=== PATIENT | female | born 1980 | race Caucasian/White ===

== ENCOUNTER 2016-11-12 16:01 | Emergency (ER) | payer OTHER ==
[~2016-11-12 16:01] MED LIST: METHADONE HCL10 MG PO; ZYVOX600 M1 PO
--- NOTE | 2016-11-12 16:53 | ED ORDER SUMMARY ---
..... Patient: CAMILLE OSHEA OrderSheet [facility] VisitID: [id number] [address] [place] [address] 36y, F Registration Date/Time: 11/12/2016 ORDER SHEET Weight: 72.5 kg (stated) Allergies: Compazine, Sulfa Antibiotics GENERAL ORDERS: EKG - ER Stat (16:21 11/12/2016 Rbo Calero per protocol) (16:31 Rob Belle.Agata.) MEDICATION ORDERS: Benadryl PO 50 mg (NOW) (16:51 11/12/2016 Bob CAMPOS) (16:54 Rob Belle.Scott) IV FLUIDS: ORDER SHEET NOTES: [Electronically signed by Stephanie Sood R.N. (22:43 11/12/2016)] [Electronically signed by Osiris Grewal PA-C (00:39 11/13/2016)] [Electronically locked/signed by Stephanie Sood R.N. (22:43 11/12/2016)]
--- NOTE | 2016-11-12 16:53 | ED NURSING NOTES ---
Clinical Report - Nurses [facility] [address] [place] [address] 11/12/2016 16:02 Patient: CAMILLE OSHEA TRIAGE Triage time 16:05. Acuity: LEVEL 4. Chief Complaint: RIGHT UPPER EXTREMITY PAIN, SWELLING and REDNESS. Alert. No acute distress. ( Pt. 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 She said she thinks she is having a reaction because "right after I shot up it started burning and I didn't miss, this feels different than before."). SEPSIS SCREEN: Sepsis Screen. Negative (no infection suspected/documented). JAMIE COMA SCORE: Jamie Coma Scale: 15- eyes open spontaneously (4); best verbal response- oriented x 4 (5); best motor response- obeys commands (6). --16:11 Stephanie Sood R.N. 16:05 11/12/16. BP: 134/73. HR: 105. RR: 14. O2 saturation: 100%. Temp: 98.4 F. Pain level now: 7/10. Additional comments: Hand pain:7/10 and chest pain /10. --16:11 Stephanie Sood R.N. Weight: 72.5 kg stated. Height/Length: 64 inches Per Patient. BMI: 27.5. --16:09 Stephanie Sood R.N. Medications Aspirin Oral, as needed. --16:08 Stephanie Sood R.N. Albuterol Sulfate Inhalation. --16:08 Stephanie Sood R.N. Allergies Compazine. Sulfa Antibiotics. --16:08 Stephanie Sood R.N. History Arrived by private vehicle. Historian: patient. Unaccompanied. Primary physician (JORGE in [place] This occurred today (15 min. KNIFE CHANGER). Treatment KNIFE CHANGER: None. PAST MEDICAL HX: Immunizations: up-to-date. SOCIAL HX: Light tobacco smoker (cigarette)- less than 1/2 a pack per day. History of heavy IV drug use: heroin, methamphetamines. No alcohol use. No infectious disease exposure. ABUSE ASSESSMENT: Abuse assessment: The patient was asked "Do you feel safe in your home?" and "Has anyone hurt you or threatened to hurt you?". No report of abuse. SELF HARM ASSESSMENT: A self harm assessment was performed. The patient answered "no" to the question "Do you have thoughts of harming or killing yourself?" and "Have you recently had thoughts about harming or killing others?". NUTRITIONAL RISK ASSESSMENT: The nutritional risk assessment revealed no deficiencies. FUNCTIONAL ASSESSMENT: Functional assessment: no impairments noted. LEARNING NEEDS ASSESSMENT: The learning needs assessment revealed no barriers. --16:11 Stephanie Sood R.N. PROBLEMS: Bronchitis. Atypical Chest Pain. URI. Viral Disease. Anxiety Reaction. Cellulitis. Substance Abuse. Superficial Thrombophlebitis. Constipation. Hepatitis. Gastroenteritis. Lifestyle / Substance Problems. Diarrhea. Abdominal Pain. Fibromyalgia. Degenerative Joint Disease. Asthma. Abscess. Bipolar Disorder. Anxiety disorder. Liver enzymes abnormal. --16:08 Stephanie Sood R.N. ADDITIONAL SURGERIES: Cholecystectomy. Dilatation & Curettage. Fracture Repair. --16:08 Stephanie Sood R.N. Interventions ID band on patient. Ambulatory. --16:11 Stephanie Sood R.N. PHYSICAL ASSESSMENT Ambulatory to room. GENERAL / NEURO / PSYCH: Oriented X 4. Alert. Appears in no acute distress. EXTREMITIES: Neuro-vascular status intact to the extremity. Right hand: swelling and erythema. SKIN: Skin intact. Skin is warm and dry. --16:12 Stephanie Sood R.N. NURSING PROGRESS NOTES Patient gowned. Two patient identifiers checked. Call light placed in reach. Side rails up x 1. Bed placed in lowest position. Brakes of bed on. Patient ready for evaluation- chart flagged. --16:12 Stephanie Sood R.N. 16:13. media monitor, pulse oximeter and NIBP monitor placed on patient; media monitor- Lead II; monitor alarms on. --16:14 Stephanie Sood R.N. ( media monitor: sinus tach.). --16:20 Stephanie Sood R.N. EKG time: (16:31). EKG was ordered, performed by a nurse and shown to the ED physician. --16:31 Stephanie Sood R.N. 16:54 11/12/2016 Benadryl (DiphenhydrAMINE HCl) PO 50 mg given. Allergies verified, confirmed 5 rights and sedative warning given to the patient. --16:54 Stephanie Sood R.N. DISPOSITION / DISCHARGE 22:05 11/12/16. BP: 133/84. HR: 100. RR: 16. O2 saturation: 100%. Temp: 98.7 F. Pain level now 03/14. --22:41 Stephanie Sood R.N. Departure time: 1658. Condition at departure: stable. No learning barriers present. Discharge instructions provided and reviewed with the patient. Reviewed referral to family practice for followup. Patient verbalized understanding. Written instructions provided in Austrian. The patient was discharged home and accompanied by architecture internship. She left the Emergency Department ambulatory and via private vehicle. Paraprofessional Aide driving. ( all discharge done at 1658). Medication list reviewed and validated. --22:42 Stephanie Sood R.N. Locked/Released at 11/12/2016 22:43 by Stephanie Sood R.N.
--- NOTE | 2016-11-12 16:53 | ED ORDER SUMMARY ---
..... Patient: CAMILLE OSHEA OrderSheet [facility] VisitID: [id number] [address] [place] [address] 36y, F Registration Date/Time: 11/12/2016 ORDER SHEET Weight: 72.5 kg (stated) Allergies: Compazine, Sulfa Antibiotics GENERAL ORDERS: EKG - ER Stat (16:21 11/12/2016 Rob Calero per protocol) (16:31 Rob Belle.Agata.) MEDICATION ORDERS: Benadryl PO 50 mg (NOW) (16:51 11/12/2016 Bob CAMPOS) (16:54 Rob Belle.Scott) IV FLUIDS: ORDER SHEET NOTES: [Electronically signed by Stephanie Sood R.N. (22:43 11/12/2016)] [Electronically signed by Osiris Grewal PA-C (00:39 11/13/2016)] [Electronically locked/signed by Stephanie Sood R.N. (22:43 11/12/2016)]
--- NOTE | 2016-11-12 16:53 | ED CLINICAL REPORT ---
Clinical Report - Physicians/Mid Levels [facility] [address] [place] [address] 11/12/2016 16:02 Patient: CAMILLE OSHEA Time Seen: 16:39; initial patient contact. Arrived- By private vehicle. Historian- patient. ( Pt. 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 She said she thinks she is having a reaction because "right after I shot up it started burning and I didn't miss, this feels different than before.") pt has localized swelling and hive like reaction to the back of the right hand. HISTORY OF PRESENT ILLNESS Chief Complaint: ANXIOUS. Wants to stop drug use. Symptoms started today. Duration of substance abuse- 9 months. Substances abused: Heroin. Last drug use just prior to arrival. (15 minutes). No fever, chills, nausea, vomiting or diarrhea. The symptoms are described as moderate. No injuries noted. Similar symptoms previously: None. Recent medical care: Not recently seen/assessed. REVIEW OF SYSTEMS The patient has not had weight loss. No sweats, headache, dizziness, chest pain or palpitations. All systems otherwise negative, except as recorded above. PAST HISTORY See nurses notes. Longstanding history of drug abuse- heroin. Uses daily. Problems: Atypical Chest Pain. URI. Anxiety Reaction. Immunocompromised. Cellulitis. Superficial Thrombophlebitis. Constipation. Hepatitis. Gastroenteritis. Lifestyle / Substance Problems. Diarrhea. Abdominal Pain. Abd pain. Degenerative Joint Disease. Asthma. Bipolar Disorder. Liver enzymes abnormal. Medications: Albuterol Sulfate Inhalation. Aspirin Oral, as needed. Allergies: Compazine. Sulfa Antibiotics. SOCIAL HISTORY Smoker- current status unknown (cigarette). Alcohol use. History of drug use. FAMILY HISTORY Negative. ADDITIONAL NOTES The nursing notes have been reviewed with agreement regarding the chief complaint, HPI, ROS, PMH and patient medications and allergies. PHYSICAL EXAM Vital Signs: 11/12/2016 16:55 BP: 133/84. HR: 100. RR: 16. O2 saturation: 100%. Temp: 98.7 F. 11/12/2016 16:05 BP: 134/73. HR: 105. RR: 14. O2 saturation: 100%. Temp: 98.4 F. Pain level now: 05/14. Have been reviewed. Appearance: Alert. Oriented X3. No acute distress. Head: Head atraumatic. Neck: Normal inspection. Neck supple. CVS: Normal heart rate and rhythm. Heart sounds normal. Respiratory: No respiratory distress. Breath sounds normal. Skin: Skin warm and dry. Normal skin color. No rash. Extremities: Right hand: mild tenderness and swelling localized to the distal and dorsal aspect of the hand. Neurovascular intact distally. (urticarial like wheel to the dorsum of the right hand with well demarcated margins and no real warmth no rednss at this time. appears urticarial with other scars present from prior daily heroin use). Neuro: Oriented X 3. Mood/affect normal. Speech normal. CLINICAL IMPRESSION Acute urticaria secondary to allergy (urticarial wheel to the dorsum of the hand.). Chronic substance abuse- heroin with anxiety. INSTRUCTIONS Stay with responsible adult family member (or other responsible adult). (seek care at the suboxone clinic in the am). OTC Medications: Benadryl Allergy 25 mg (available over the counter): take 1-2 orally every 8 hours as needed for itching Understanding of the discharge instructions verbalized by patient. (Electronically signed by Osiris Grewal PA-C 11/13/2016 0:39)
--- NOTE | 2016-11-12 16:53 | ED NURSING NOTES ---
Clinical Report - Nurses [facility] [address] [place] [address] 11/12/2016 16:02 Patient: CAMILLE OSHEA TRIAGE Triage time 16:05. Acuity: LEVEL 4. Chief Complaint: RIGHT UPPER EXTREMITY PAIN, SWELLING and REDNESS. Alert. No acute distress. ( Pt. 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 She said she thinks she is having a reaction because "right after I shot up it started burning and I didn't miss, this feels different than before."). SEPSIS SCREEN: Sepsis Screen. Negative (no infection suspected/documented). JAMIE COMA SCORE: Jamie Coma Scale: 15- eyes open spontaneously (4); best verbal response- oriented x 4 (5); best motor response- obeys commands (6). --16:11 Stephanie Sood R.N. 16:05 11/12/16. BP: 134/73. HR: 105. RR: 14. O2 saturation: 100%. Temp: 98.4 F. Pain level now: 7/10. Additional comments: Hand pain:7/10 and chest pain /10. --16:11 Stephanie Sood R.N. Weight: 72.5 kg stated. Height/Length: 64 inches Per Patient. BMI: 27.5. --16:09 Stephanie Sood R.N. Medications Aspirin Oral, as needed. --16:08 Stephanie Sood R.N. Albuterol Sulfate Inhalation. --16:08 Stephanie Sood R.N. Allergies Compazine. Sulfa Antibiotics. --16:08 Stephanie Sood R.N. History Arrived by private vehicle. Historian: patient. Unaccompanied. Primary physician (JORGE in [place] This occurred today (15 min. SAWYER CORK SLABS). Treatment SAWYER CORK SLABS: None. PAST MEDICAL HX: Immunizations: up-to-date. SOCIAL HX: Light tobacco smoker (cigarette)- less than 1/2 a pack per day. History of heavy IV drug use: heroin, methamphetamines. No alcohol use. No infectious disease exposure. ABUSE ASSESSMENT: Abuse assessment: The patient was asked "Do you feel safe in your home?" and "Has anyone hurt you or threatened to hurt you?". No report of abuse. SELF HARM ASSESSMENT: A self harm assessment was performed. The patient answered "no" to the question "Do you have thoughts of harming or killing yourself?" and "Have you recently had thoughts about harming or killing others?". NUTRITIONAL RISK ASSESSMENT: The nutritional risk assessment revealed no deficiencies. FUNCTIONAL ASSESSMENT: Functional assessment: no impairments noted. LEARNING NEEDS ASSESSMENT: The learning needs assessment revealed no barriers. --16:11 Stephanie Sood R.N. PROBLEMS: Bronchitis. Atypical Chest Pain. URI. Viral Disease. Anxiety Reaction. Cellulitis. Substance Abuse. Superficial Thrombophlebitis. Constipation. Hepatitis. Gastroenteritis. Lifestyle / Substance Problems. Diarrhea. Abdominal Pain. Fibromyalgia. Degenerative Joint Disease. Asthma. Abscess. Bipolar Disorder. Anxiety disorder. Liver enzymes abnormal. --16:08 Stephanie Sood R.N. ADDITIONAL SURGERIES: Cholecystectomy. Dilatation & Curettage. Fracture Repair. --16:08 Stephanie Sood R.N. Interventions ID band on patient. Ambulatory. --16:11 Stephanie Sood R.N. PHYSICAL ASSESSMENT Ambulatory to room. GENERAL / NEURO / PSYCH: Oriented X 4. Alert. Appears in no acute distress. EXTREMITIES: Neuro-vascular status intact to the extremity. Right hand: swelling and erythema. SKIN: Skin intact. Skin is warm and dry. --16:12 Stephanie Sood R.N. NURSING PROGRESS NOTES Patient gowned. Two patient identifiers checked. Call light placed in reach. Side rails up x 1. Bed placed in lowest position. Brakes of bed on. Patient ready for evaluation- chart flagged. --16:12 Stephanie Sood R.N. 16:13. electrical discharge machine operator, pulse oximeter and NIBP monitor placed on patient; sde- Lead II; monitor alarms on. --16:14 Stephanie Sodo R.N. ( sde: sinus tach.). --16:20 Stephanie Sood R.N. EKG time: (16:31). EKG was ordered, performed by a nurse and shown to the ED physician. --16:31 Stephanie Sood R.N. 16:54 11/12/2016 Benadryl (DiphenhydrAMINE HCl) PO 50 mg given. Allergies verified, confirmed 5 rights and sedative warning given to the patient. --16:54 Stephanie Sood R.N. DISPOSITION / DISCHARGE 22:05 11/12/16. BP: 133/84. HR: 100. RR: 16. O2 saturation: 100%. Temp: 98.7 F. Pain level now 03/14. --22:41 Stephanie Sood R.N. Departure time: 1658. Condition at departure: stable. No learning barriers present. Discharge instructions provided and reviewed with the patient. Reviewed referral to family practice for followup. Patient verbalized understanding. Written instructions provided in Cymro. The patient was discharged home and accompanied by case manager specialist. She left the Emergency Department ambulatory and via private vehicle. Plate Worker driving. ( all discharge done at 1658). Medication list reviewed and validated. --22:42 Stephanie Sood R.N. Locked/Released at 11/12/2016 22:43 by Stephanie Sood R.N.
--- NOTE | 2016-11-12 16:53 | ED CLINICAL REPORT ---
Clinical Report - Physicians/Mid Levels [facility] [address] [place] [address] 11/12/2016 16:02 Patient: CAMILLE OSHEA Time Seen: 16:39; initial patient contact. Arrived- By private vehicle. Historian- patient. ( Pt. 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 She said she thinks she is having a reaction because "right after I shot up it started burning and I didn't miss, this feels different than before.") pt has localized swelling and hive like reaction to the back of the right hand. HISTORY OF PRESENT ILLNESS Chief Complaint: ANXIOUS. Wants to stop drug use. Symptoms started today. Duration of substance abuse- 9 months. Substances abused: Heroin. Last drug use just prior to arrival. (15 minutes). No fever, chills, nausea, vomiting or diarrhea. The symptoms are described as moderate. No injuries noted. Similar symptoms previously: None. Recent medical care: Not recently seen/assessed. REVIEW OF SYSTEMS The patient has not had weight loss. No sweats, headache, dizziness, chest pain or palpitations. All systems otherwise negative, except as recorded above. PAST HISTORY See nurses notes. Longstanding history of drug abuse- heroin. Uses daily. Problems: Atypical Chest Pain. URI. Anxiety Reaction. Immunocompromised. Cellulitis. Superficial Thrombophlebitis. Constipation. Hepatitis. Gastroenteritis. Lifestyle / Substance Problems. Diarrhea. Abdominal Pain. Abd pain. Degenerative Joint Disease. Asthma. Bipolar Disorder. Liver enzymes abnormal. Medications: Albuterol Sulfate Inhalation. Aspirin Oral, as needed. Allergies: Compazine. Sulfa Antibiotics. SOCIAL HISTORY Smoker- current status unknown (cigarette). Alcohol use. History of drug use. FAMILY HISTORY Negative. ADDITIONAL NOTES The nursing notes have been reviewed with agreement regarding the chief complaint, HPI, ROS, PMH and patient medications and allergies. PHYSICAL EXAM Vital Signs: 11/12/2016 16:55 BP: 133/84. HR: 100. RR: 16. O2 saturation: 100%. Temp: 98.7 F. 11/12/2016 16:05 BP: 134/73. HR: 105. RR: 14. O2 saturation: 100%. Temp: 98.4 F. Pain level now: 05/14. Have been reviewed. Appearance: Alert. Oriented X3. No acute distress. Head: Head atraumatic. Neck: Normal inspection. Neck supple. CVS: Normal heart rate and rhythm. Heart sounds normal. Respiratory: No respiratory distress. Breath sounds normal. Skin: Skin warm and dry. Normal skin color. No rash. Extremities: Right hand: mild tenderness and swelling localized to the distal and dorsal aspect of the hand. Neurovascular intact distally. (urticarial like wheel to the dorsum of the right hand with well demarcated margins and no real warmth no rednss at this time. appears urticarial with other scars present from prior daily heroin use). Neuro: Oriented X 3. Mood/affect normal. Speech normal. CLINICAL IMPRESSION Acute urticaria secondary to allergy (urticarial wheel to the dorsum of the hand.). Chronic substance abuse- heroin with anxiety. INSTRUCTIONS Stay with responsible adult family member (or other responsible adult). (seek care at the suboxone clinic in the am). OTC Medications: Benadryl Allergy 25 mg (available over the counter): take 1-2 orally every 8 hours as needed for itching Understanding of the discharge instructions verbalized by patient. (Electronically signed by Osiris Grewal PA-C 11/13/2016 0:39)
--- NOTE | 2016-11-13 00:40 | ED MAR SUMMARY ---
..... Medication Administration Record [facility] [address] [place] [address] Patient: CAMILLE OSHEA Visit ID: [id number] 36y, F Weight: 72.5 kg Height/Length: 64 in BMI: 27.5 ALLERGIES: Compazine, Sulfa Antibiotics Given 16:54 11/12/2016 Stephanie Sood RAntony Medication Administered: BENADRYL [PO] (DIPHENHYDRAMINE HCL), Dose: 50 mg PO. Medication Ordered: Benadryl PO 50 mg (NOW).
--- NOTE | 2016-11-13 00:40 | ED MAR SUMMARY ---
..... Medication Administration Record [facility] [address] [place] [address] Patient: CAMILLE OSHEA Visit ID: [id number] 36y, F Weight: 72.5 kg Height/Length: 64 in BMI: 27.5 ALLERGIES: Compazine, Sulfa Antibiotics Given 16:54 11/12/2016 Stephanie Sood RAntony Medication Administered: BENADRYL [PO] (DIPHENHYDRAMINE HCL), Dose: 50 mg PO. Medication Ordered: Benadryl PO 50 mg (NOW).
--- NOTE | 2016-11-13 00:40 | ED DISCHARGE INSTRUCTIONS ---
Patient: CAMILLE OSHEA General Instructions [facility] VisitID: [id number] [address] [place] [address] 36y, F Registration Date/Time: 11/12/2016 Acute urticaria secondary to allergy (urticarial wheel to the dorsum of the hand.). Chronic substance abuse- heroin with anxiety. INSTRUCTIONS Stay with responsible adult family member (or other responsible adult). (seek care at the suboxone clinic in the am). OTC Medications: Benadryl Allergy 25 mg (available over the counter): take 1-2 orally every 8 hours as needed for itching Understanding of the discharge instructions verbalized by patient. Stay with responsible adult family member (or other responsible adult). (Electronically signed by Osiris Grewal PA-C 11/13/2016 0:39)
--- NOTE | 2016-11-13 00:40 | ED MED RECONCILIATION SUMMARY ---
Patient: CAMILLE OSHEA Medication Reconciliation Report [facility] VisitID: [id number] [address] [place] [address] 36y, F Registration Date/Time: 11/12/2016 Weight: 72.5 kg Height/Length: 64 in. BMI: 27.5 ALLERGIES: Compazine, Sulfa Antibiotics The patient's Home Medications are listed below: THE FOLLOWING MEDICATIONS NEED TO BE RECONCILED: Albuterol Sulfate Inhalation Aspirin Oral The source(s) of the original Home Medication information: Not obtained. The following Medications were given to the patient in the Emergency Department: Benadryl [PO] PO 50 mg, administered: 11/12/2016 4:54:00 PM The following Medications were prescribed to the patient: Benadryl Allergy 25 mg (available over the counter): take 1-2 orally every 8 hours as needed for itching -- Osiris Grewal PA-C
--- NOTE | 2016-11-13 00:40 | ED DISCHARGE INSTRUCTIONS ---
Patient: CAMILLE OSHEA General Instructions [facility] VisitID: [id number] [address] [place] [address] 36y, F Registration Date/Time: 11/12/2016 Acute urticaria secondary to allergy (urticarial wheel to the dorsum of the hand.). Chronic substance abuse- heroin with anxiety. INSTRUCTIONS Stay with responsible adult family member (or other responsible adult). (seek care at the suboxone clinic in the am). OTC Medications: Benadryl Allergy 25 mg (available over the counter): take 1-2 orally every 8 hours as needed for itching Understanding of the discharge instructions verbalized by patient. Stay with responsible adult family member (or other responsible adult). (Electronically signed by Osiris Grewal PA-C 11/13/2016 0:39)
--- NOTE | 2016-11-13 00:40 | ED MED RECONCILIATION SUMMARY ---
Patient: CAMILLE OSHEA Medication Reconciliation Report [facility] VisitID: [id number] [address] [place] [address] 36y, F Registration Date/Time: 11/12/2016 Weight: 72.5 kg Height/Length: 64 in. BMI: 27.5 ALLERGIES: Compazine, Sulfa Antibiotics The patient's Home Medications are listed below: THE FOLLOWING MEDICATIONS NEED TO BE RECONCILED: Albuterol Sulfate Inhalation Aspirin Oral The source(s) of the original Home Medication information: Not obtained. The following Medications were given to the patient in the Emergency Department: Benadryl [PO] PO 50 mg, administered: 11/12/2016 4:54:00 PM The following Medications were prescribed to the patient: Benadryl Allergy 25 mg (available over the counter): take 1-2 orally every 8 hours as needed for itching -- Osiris Grewal PA-C
== END 2016-11-12 16:58 | disposition home or self-care (01) ==
LOC: ED SRH 16:01
DX: L50.0 Allergic urticaria (principal); F11.188 Opioid abuse with other opioid-induced disorder; F41.9 Anxiety disorder, unspecified; F17.200 Nicotine dependence, unspecified, uncomplicated; Z79.82 Long term (current) use of aspirin; Z79.51 Long term (current) use of inhaled steroids

== ENCOUNTER 2016-11-15 10:17 | Emergency (ER) | payer OTHER ==
--- NOTE | 2016-11-15 14:23 | ED CLINICAL REPORT ---
Clinical Report - Physicians/Mid Levels [facility] [address] [place] [address] 11/15/2016 10:16 Patient: CAMILLE OSHEA Time Seen: 10:53; initial patient contact. Arrived- By private vehicle. Historian- patient. HISTORY OF PRESENT ILLNESS Chief Complaint: "GOT THE SHAKES". Wants to stop drug use. Symptoms started today. Substances abused: Amphetamines and heroin. Last drug use consisted of amphetamines and heroin 1 day ago. No fever, chills, abdominal pain, hallucinations or suicidal thoughts. She has had nausea, vomiting, diarrhea and tremors. Has not been depressed. The symptoms are described as moderate. No injuries noted. Similar symptoms previously: Several times. Recent medical care: Not recently seen/assessed. REVIEW OF SYSTEMS No headache or dizziness. All systems otherwise negative, except as recorded above. PAST HISTORY Anxiety Reaction. Immunocompromised. Substance Abuse. Hepatitis. Gastroenteritis. Lifestyle / Substance Problems. Pelvic Inflammatory Disease. Bipolar Disorder. Anxiety disorder. Liver enzymes abnormal. SURGERIES: Cholecystectomy. Dilatation & Curettage. Fracture Repair. SOCIAL HISTORY Current every day smoker. History of drug use: heroin, methamphetamines. Recently used drugs yesterday. No alcohol use. No place to stay. ADDITIONAL NOTES The nursing notes have been reviewed with agreement regarding the chief complaint, PMH and patient medications and allergies. PHYSICAL EXAM Vital Signs: 11/15/2016 10:44 BP: 125/83. HR: 97. RR: 16. O2 saturation: 100%. Temp: 97.8 F. Pain level now: 08/14. Have been reviewed as normal. Appearance: Alert. Oriented X3. Anxious. Patient in mild distress. Head: Head atraumatic. ENT: Dry mucous membranes present. CVS: Normal heart rate and rhythm. Heart sounds normal. Respiratory: No respiratory distress. Breath sounds normal. Abdomen: Soft and nontender. No organomegaly. Skin: Skin warm and dry. Normal skin color. No rash. Extremities: No lower extremity edema. Neuro: Alert. Oriented X 3. Mood/affect normal. Speech normal. LABS, X-RAYS, AND EKG Laboratory Tests: UA-Culture if indicated: (GINA: 11/15/2016 10:50) ( MsgRcvd 11/15/2016 11:28) Final results Test Result Flag Units (Reference) URINE COLOR YELLOW URINE APPEARANCE SL CLOUDY URINE GLUCOSE NEGATIVE (NEGATIVE) URINE BILIRUBIN NEGATIVE (NEGATIVE) URINE KETONE NEGATIVE (NEGATIVE) URINE SPECIFIC GRAVITY 1.015 (1.010-1.030) URINE PH 6.5 (5.0-8.0) URINE PROTEIN NEGATIVE (NEGATIVE) URINE UROBILINOGEN 0.2 EU/dL (0.2-1.0) URINE NITRITE NEGATIVE (NEGATIVE) URINE BLOOD TRACE-LYSED (NEGATIVE) URINE LEUK ESTERASE TRACE (NEGATIVE) URINE RBC 0-1 rbc/hpf (0-1) URINE WBC 3-5 wbc/hpf (0-1) URINE EPITHELIAL CELLS 3-5 EPI/hpf (0-5) URINE BACTERIA FEW (1+) (NONE SEEN) URINE COMMENT CULTURE INDICATED URINE CULTURES ARE SET-UP BASED ON THE FOLLOWING CRITERIA:POSITIVE NITRITEPOSITIVE LEUKOCYTE ESTERASEGREATER THAN 10 WHITE BLOOD CELLSMODERATE (2+) OR GREATER BACTERIA Urine Drug Screen: (GINA: 11/15/2016 10:50) ( MsgRcvd 11/15/2016 11:37) Final results Test Result Flag Units (Reference) AMPHETAMINE/METHAMPHETAMINE POSITIVE H (NEGATIVE) BARBITURATE NEGATIVE (NEGATIVE) BENZODIAZEPINE NEGATIVE (NEGATIVE) CANNABINOID POSITIVE H (NEGATIVE) COCAINE NEGATIVE (NEGATIVE) ECSTASY NEGATIVE (NEGATIVE) METHADONE NEGATIVE (NEGATIVE) OPIATE POSITIVE H (NEGATIVE) The urine drug screen is a qualitative screening test fordrug overdose and abuse. All screen results should beconsidered as presumptive.Drugs screened for are as follows:BenzodiazepinesCocaineAmphetamines/MetamphetaminesTHC (Tetrahydrocannabinol)OpiatesBarbituratesEcstasyMethadonePositive results are unconfirmed. For confirmation, notifythe lab for the specimen to be sent to the reference lab.All confirmations must be performed by a differentmethodology.The ingestion of natural herbal and plant productscontaining Ephedra/Ephedra metabolites can produce in urineone or more substances capable of cross reacting withamphetamine/methamphetamine immunoassays. These testsprovide a preliminary result only. A more specificalternative chemical method must be used to obtain aconfirmed analytical result. . PROGRESS AND PROCEDURES Disposition: Discharged home in good and improved condition. Condition: good. CLINICAL IMPRESSION 11/15/2016 13:03 BP: 141/97. HR: 110. RR: 16. O2 saturation: 100%. Temp: 98.6 F. Pain level now: 08/14. Vital Signs: have been reviewed. Hypertensive. Tachycardic. Respiratory rate normal. Oxygen saturation normal. Narcotic withdrawal INSTRUCTIONS Your Current Medications: CONTINUE TAKING THE FOLLOWING MEDICATIONS: Albuterol Sulfate Inhalation. Aspirin Oral : prn. Prescription Medications: Clonidine 0.1 mg: take 1 orally every 12 hours. Dispense thirty (30). No refills. Vistaril 50 mg: take 1 orally every 6 hours as needed for anxiety. Dispense twenty (20). No refill. Substitution is permissible. Promethazine Tablets 25 mg: take 1 tablet orally every 6 hours as needed for nausea and vomiting. Dispense fifteen (15). No refill. Follow-up: Follow up with your doctor tomorrow as scheduled. Screening today revealed the patient's blood pressure to be in the hypertensive range. The patient should follow up with a primary care provider for blood pressure management. (Electronically signed by Evaristo Rob Dr. 11/15/2016 22:38)
--- NOTE | 2016-11-15 14:23 | ED NURSING NOTES ---
Clinical Report - Nurses [facility] [place] [address] [place] [address] 11/15/2016 10:16 Patient: CAMILLE OSHEA TRIAGE Triage time 1044 AM. Chief Complaint: (withdrawals). Alert. No acute distress. ABRAM COMA SCORE: [place] Coma Scale: 15- eyes open spontaneously (4); best verbal response- oriented x 4 (5); best motor response- obeys commands (6). --10:48 Anastacio Seth R.N. 10:44 11/15/16. BP: 125/83. HR: 97. RR: 16. O2 saturation: 100%. Temp: 97.8 F (oral). Pain level now: 08/14. --10:48 Anastacio Seth R.N. Weight: 72.5 kg stated. Height/Length: 64 inches Per Patient. BMI: 27.5. --10:47 Anastacio Seth R.N. Medications Albuterol Sulfate Inhalation. Aspirin Oral, as needed. --10:46 Anastacio Seth R.N. Allergies Compazine. Sulfa Antibiotics. --10:46 Anastacio Seth R.N. History Historian: patient. Arrived walking and accompanied by spouse. This started Patient states that she last used heroin on Sunday. ( Patient presents to the ED with symptoms of withdrawal from Heroin. Patient states that she believes she last used heroin on Sunday. Patient states that she has been using IV heroin for approximately 1 year. Patient reports chills, cramping, nausea, and vomiting.). 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 PAST MEDICAL HX: Last normal menstrual period unknown. SOCIAL HX: Light tobacco smoker (cigarette)- less than 1/2 a pack per day. Alcohol use. (no). History of drug use: heroin, methamphetamines. FALL RISK ASSESSMENT: Fall risk assessment completed. No fall risk identified. NUTRITIONAL RISK ASSESSMENT: The nutritional risk assessment revealed no deficiencies. FUNCTIONAL ASSESSMENT: Functional assessment: no impairments noted. LEARNING NEEDS ASSESSMENT: The learning needs assessment revealed no barriers. SKIN INTEGRITY ASSESSMENT: Skin integrity risk assessment completed. No skin integrity risk identified. --10:48 Anastacio Seth R.N. The patient has had a headache. --10:48 Anastacio Seth R.N. PROBLEMS: Anxiety Reaction. Immunocompromised. Substance Abuse. Hepatitis. Gastroenteritis. Lifestyle / Substance Problems. Pelvic Inflammatory Disease. Bipolar Disorder. Anxiety disorder. Liver enzymes abnormal. --10:47 Anastacio Seth R.N. ADDITIONAL SURGERIES: Cholecystectomy. Dilatation & Curettage. Fracture Repair. --10:47 Anastacio Seth R.N. PHYSICAL ASSESSMENT Ambulatory to room. GENERAL / NEURO / PSYCH: Alert. Oriented X 4. Appears in no acute distress. Speech within normal limits. Patient appears well-nourished and neat and clean. HEENT: Pupils equal, round and reactive to light. RESPIRATORY: Respirations not labored. Breath sounds within normal limits. CVS: Normal sinus rhythm noted. Capillary refill less than 2 seconds. GI / : Abdominal tenderness diffusely ("cramping"). SKIN: Skin is warm and dry. Normal skin turgor. --10:49 Anastacio Seth R.N. NURSING PROGRESS NOTES 11:50 11/15/2016 Clonidine PO Tablets 0.1 mg given. Allergies verified and confirmed 5 rights. --11:50 Anastacio Seth R.N. 11:50 11/15/2016 Site #1 started via IV in the right foot with an 22g angiocath; four attempts. Blood drawn: rainbow set. Labeled in the presence of the patient and sent to the lab. Saline lock flushed with 10 mL saline. --11:50 Anastacio Seth R.N. 11:51 11/15/2016 Started IV Fluids IV NS (Saline); bolus of 1000 mL wide open via site #1. Allergies verified and confirmed 5 rights. IV patency established. IV site checked: no pain, redness, or swelling. IV flushed thoroughly pre- and post-medication administration. --11:51 Anastacio Seth R.N. 11:51 11/15/2016 Started 25 mg of PROMETHAZINE IVPB in bag #1 1000 mL; at 1000 mL/hr over 1 hour(s) via site #1; Allergies verified, confirmed 5 rights and sedative warning given. --11:51 Anastacio Seth R.N. 13:03 11/15/16. BP: 141/97. HR: 110. RR: 16. O2 saturation: 100%. Temp: 98.6 F (oral). Pain level now: 08/14. --13:06 Anastacio Seth R.N. Overall patient status is worse- she states feels worse. --13:06 Anastacio Seth R.N. 13:19 11/15/2016 Vistaril (HydrOXYzine HCl) IM 50 mg given. Given in the right deltoid. Allergies verified, confirmed 5 rights and sedative warning given to the patient. --13:19 Anastacio Seth R.N. ( pt. friend given information for cold weather shelters in the area.). --14:40 Geovanna Newsome, JAMIL Tech1 15:26 11/15/2016 IV Fluids IV NS Discontinued: bag #1 completed upon discharge. Total amount infused: 1000 mL. IV patency established. IV site checked: no pain, redness, or swelling. IV flushed thoroughly. --15:26 Anastacio Seth R.N. DISPOSITION / DISCHARGE Departure time: 1526 PM. Condition at departure: improved. The goals identified in the patient's plan of care were met. No learning barriers present. Discharge instructions provided and reviewed with the patient. Reviewed medication(s) side effects, precautions, dosing and course information. Reviewed referrals ([facility]). Patient verbalized understanding. Written instructions provided in Tajik. The patient was discharged home and accompanied by family. She left the Emergency Department ambulatory and via private vehicle. Parent driving. ( Patient's father, Paramjit, states that he will waste picker patient at 9pm tonight. Patient discharged to the lobby with clear instructions to follow up at [facility] tomorrow at 3:30PM. Patient verbalized understanding and states that she will wait in the lobby until her father comes to pick her up.). --15:26 Anastacio Seth R.N. 15:17 11/15/16. BP: 137/96. HR: 94. RR: 16. O2 saturation: 100%. Temp: 98.2 F (oral). Pain level now: 08/14. --15:26 Anastacio Seth R.N. Locked/Released at 11/15/2016 15:27 by Anastacio Seth R.N.
--- NOTE | 2016-11-15 14:23 | ED ORDER SUMMARY ---
..... Patient: CAMILLE OSHEA OrderSheet [facility] VisitID: [id number] [address] [place] [address] 36y, F Registration Date/Time: 11/15/2016 ORDER SHEET Weight: 72.5 kg (stated) Allergies: Compazine, Sulfa Antibiotics GENERAL ORDERS: UA-Culture if indicated Urgent (10:49 11/15/2016 Shabana R.N. per protocol) (10:50 HOShasouth R.N.) Urine Drug Screen Urgent (10:49 11/15/2016 HOSjuanpablo R.N. per protocol) (10:50 Shabana R.N.) MEDICATION ORDERS: Promethazine IV 25 mg (HIGH ALERT MEDICATION, NOW) (11:13 11/15/2016 Mary Thomas) (11:51 Shabana R.N.) Previously tolerated Promethazine Clonidine PO 0.1 mg (NOW) (11:14 11/15/2016 Mary Thomas) (11:50 HOSjuanpablo R.N.) Previously tolerated Promethazine Vistaril IM 50 mg (NOW, Do not administer intravenously) (13:14 11/15/2016 Mary Thomas) (13:19 Shabana R.N.) IV FLUIDS: IV NS : initial bolus none -, then 1000 mL/hr for X1 (NOW) (11:13 11/15/2016 Mary Thomas) (11:51 Shabana R.N.) Previously tolerated Promethazine ORDER SHEET NOTES: [Electronically signed by Anastacio Seth R.N. (15:27 11/15/2016)] [Electronically signed by Evaristo Rob Dr. (22:38 11/15/2016)] [Electronically locked/signed by Anastacio Seth R.N. (15:27 11/15/2016)]
--- NOTE | 2016-11-15 14:23 | ED ORDER SUMMARY ---
..... Patient: CAMILLE OSHEA OrderSheet [facility] VisitID: [id number] [address] [place] [address] 36y, F Registration Date/Time: 11/15/2016 ORDER SHEET Weight: 72.5 kg (stated) Allergies: Compazine, Sulfa Antibiotics GENERAL ORDERS: UA-Culture if indicated Urgent (10:49 11/15/2016 Shabana R.N. per protocol) (10:50 HOShasouth R.N.) Urine Drug Screen Urgent (10:49 11/15/2016 HOSjuanpablo R.N. per protocol) (10:50 Shabana R.N.) MEDICATION ORDERS: Promethazine IV 25 mg (HIGH ALERT MEDICATION, NOW) (11:13 11/15/2016 Mary Thomas) (11:51 Shabana R.N.) Previously tolerated Promethazine Clonidine PO 0.1 mg (NOW) (11:14 11/15/2016 Mary Thomas) (11:50 HOSjuanpablo R.N.) Previously tolerated Promethazine Vistaril IM 50 mg (NOW, Do not administer intravenously) (13:14 11/15/2016 Mary Thomas) (13:19 Shabana R.N.) IV FLUIDS: IV NS : initial bolus none -, then 1000 mL/hr for X1 (NOW) (11:13 11/15/2016 Mary Thomas) (11:51 Shabana R.N.) Previously tolerated Promethazine ORDER SHEET NOTES: [Electronically signed by Anastacio Seth R.N. (15:27 11/15/2016)] [Electronically signed by Evaristo Rob Dr. (22:38 11/15/2016)] [Electronically locked/signed by Anastacio Seth R.N. (15:27 11/15/2016)]
--- NOTE | 2016-11-15 14:23 | ED NURSING NOTES ---
Clinical Report - Nurses [facility] [place] [address] [place] [address] 11/15/2016 10:16 Patient: CAMILLE OSHEA TRIAGE Triage time 1044 AM. Chief Complaint: (withdrawals). Alert. No acute distress. ABRAM COMA SCORE: [place] Coma Scale: 15- eyes open spontaneously (4); best verbal response- oriented x 4 (5); best motor response- obeys commands (6). --10:48 Anastacio Seth R.N. 10:44 11/15/16. BP: 125/83. HR: 97. RR: 16. O2 saturation: 100%. Temp: 97.8 F (oral). Pain level now: 08/14. --10:48 Anastacio Seth R.N. Weight: 72.5 kg stated. Height/Length: 64 inches Per Patient. BMI: 27.5. --10:47 Anastacio Seth R.N. Medications Albuterol Sulfate Inhalation. Aspirin Oral, as needed. --10:46 Anastacio Seth R.N. Allergies Compazine. Sulfa Antibiotics. --10:46 Anastacio Seth R.N. History Historian: patient. Arrived walking and accompanied by spouse. This started Patient states that she last used heroin on Sunday. ( Patient presents to the ED with symptoms of withdrawal from Heroin. Patient states that she believes she last used heroin on Sunday. Patient states that she has been using IV heroin for approximately 1 year. Patient reports chills, cramping, nausea, and vomiting.). 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 PAST MEDICAL HX: Last normal menstrual period unknown. SOCIAL HX: Light tobacco smoker (cigarette)- less than 1/2 a pack per day. Alcohol use. (no). History of drug use: heroin, methamphetamines. FALL RISK ASSESSMENT: Fall risk assessment completed. No fall risk identified. NUTRITIONAL RISK ASSESSMENT: The nutritional risk assessment revealed no deficiencies. FUNCTIONAL ASSESSMENT: Functional assessment: no impairments noted. LEARNING NEEDS ASSESSMENT: The learning needs assessment revealed no barriers. SKIN INTEGRITY ASSESSMENT: Skin integrity risk assessment completed. No skin integrity risk identified. --10:48 Anastacio Seth R.N. The patient has had a headache. --10:48 Anastacio Seth R.N. PROBLEMS: Anxiety Reaction. Immunocompromised. Substance Abuse. Hepatitis. Gastroenteritis. Lifestyle / Substance Problems. Pelvic Inflammatory Disease. Bipolar Disorder. Anxiety disorder. Liver enzymes abnormal. --10:47 Anastacio Seth R.N. ADDITIONAL SURGERIES: Cholecystectomy. Dilatation & Curettage. Fracture Repair. --10:47 Anastacio Seth R.N. PHYSICAL ASSESSMENT Ambulatory to room. GENERAL / NEURO / PSYCH: Alert. Oriented X 4. Appears in no acute distress. Speech within normal limits. Patient appears well-nourished and neat and clean. HEENT: Pupils equal, round and reactive to light. RESPIRATORY: Respirations not labored. Breath sounds within normal limits. CVS: Normal sinus rhythm noted. Capillary refill less than 2 seconds. GI / : Abdominal tenderness diffusely ("cramping"). SKIN: Skin is warm and dry. Normal skin turgor. --10:49 Anastacio Seth R.N. NURSING PROGRESS NOTES 11:50 11/15/2016 Clonidine PO Tablets 0.1 mg given. Allergies verified and confirmed 5 rights. --11:50 Anastacio Seth R.N. 11:50 11/15/2016 Site #1 started via IV in the right foot with an 22g angiocath; four attempts. Blood drawn: rainbow set. Labeled in the presence of the patient and sent to the lab. Saline lock flushed with 10 mL saline. --11:50 Anastacio Seth R.N. 11:51 11/15/2016 Started IV Fluids IV NS (Saline); bolus of 1000 mL wide open via site #1. Allergies verified and confirmed 5 rights. IV patency established. IV site checked: no pain, redness, or swelling. IV flushed thoroughly pre- and post-medication administration. --11:51 Anastacio Seth R.N. 11:51 11/15/2016 Started 25 mg of PROMETHAZINE IVPB in bag #1 1000 mL; at 1000 mL/hr over 1 hour(s) via site #1; Allergies verified, confirmed 5 rights and sedative warning given. --11:51 Anastacio Seth R.N. 13:03 11/15/16. BP: 141/97. HR: 110. RR: 16. O2 saturation: 100%. Temp: 98.6 F (oral). Pain level now: 08/14. --13:06 Anastacio Seth R.N. Overall patient status is worse- she states feels worse. --13:06 Anastacio Seth R.N. 13:19 11/15/2016 Vistaril (HydrOXYzine HCl) IM 50 mg given. Given in the right deltoid. Allergies verified, confirmed 5 rights and sedative warning given to the patient. --13:19 Anastacio Seth R.N. ( pt. friend given information for cold weather shelters in the area.). --14:40 Geovanna Newsome, JAMIL Tech1 15:26 11/15/2016 IV Fluids IV NS Discontinued: bag #1 completed upon discharge. Total amount infused: 1000 mL. IV patency established. IV site checked: no pain, redness, or swelling. IV flushed thoroughly. --15:26 Anastacio Seth R.N. DISPOSITION / DISCHARGE Departure time: 1526 PM. Condition at departure: improved. The goals identified in the patient's plan of care were met. No learning barriers present. Discharge instructions provided and reviewed with the patient. Reviewed medication(s) side effects, precautions, dosing and course information. Reviewed referrals ([facility]). Patient verbalized understanding. Written instructions provided in Syriac. The patient was discharged home and accompanied by family. She left the Emergency Department ambulatory and via private vehicle. Parent driving. 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 Patient discharged to the lobby with clear instructions to follow up at [facility] tomorrow at 3:30PM. Patient verbalized understanding and states that she will wait in the lobby until her father comes to pick her up.). --15:26 Anastacio Seth R.N. 15:17 11/15/16. BP: 137/96. HR: 94. RR: 16. O2 saturation: 100%. Temp: 98.2 F (oral). Pain level now: 08/14. --15:26 Anastacio Seth R.N. Locked/Released at 11/15/2016 15:27 by Anastacio Seth R.N.
--- NOTE | 2016-11-15 22:38 | ED MED RECONCILIATION SUMMARY ---
Patient: CAMILLE OSHEA Medication Reconciliation Report [facility] VisitID: [id number] [address] [place] [address] 36y, F Registration Date/Time: 11/15/2016 Weight: 72.5 kg Height/Length: 64 in. BMI: 27.5 ALLERGIES: Compazine, Sulfa Antibiotics The patient's Home Medications are listed below: CONTINUE TAKING THE FOLLOWING MEDICATIONS: Albuterol Sulfate Inhalation Aspirin Oral The source(s) of the original Home Medication information: Not obtained. The following Medications were given to the patient in the Emergency Department: Clonidine [PO] PO 0.1 mg, administered: 11/15/2016 11:50:00 AM IV NS IV Fluids bolus 1000 mL wide open, administered: 11/15/2016 11:51:00 AM PROMETHAZINE [IVPB] IVPB bolus 0, then 25 mg 1000 mL/hr, administered: 11/15/2016 11:51:00 AM Vistaril [IM] IM 50 mg, administered: 11/15/2016 1:19:00 PM The following Medications were prescribed to the patient: Clonidine 0.1 mg: take 1 orally every 12 hours. Dispense thirty (30). No refills. -- Evaristo Rob Dr. Vistaril 50 mg: take 1 orally every 6 hours as needed for anxiety. Dispense twenty (20). No refill. Substitution is permissible. -- Evaristo Rob Dr. Promethazine Tablets 25 mg: take 1 tablet orally every 6 hours as needed for nausea and vomiting. Dispense fifteen (15). No refill. -- Evaristo Rob Dr.
--- NOTE | 2016-11-15 22:38 | ED MAR SUMMARY ---
..... Medication Administration Record [facility] [address] [place] [address] Patient: CAMILLE OSHEA Visit ID: [id number] 36y, F Weight: 72.5 kg Height/Length: 64 in BMI: 27.5 ALLERGIES: Compazine, Sulfa Antibiotics Given 11:50 11/15/2016 Anastacio Seth R.N. Medication Administered: CLONIDINE [PO], Dose: 0.1 mg Tablets PO. Medication Ordered: Clonidine PO 0.1 mg (NOW). Start 11:51 11/15/2016 Anastacio Seth R.N., Stop 15:26 11/15/2016 Anastacio Seth R.N. Medication Administered: IV NS (SALINE), Dose: IV Fluids, Bolus: 1000 mL wide open, Site: #1 right foot. Medication Ordered: IV NS : initial bolus none -, then 1000 mL/hr for X1 (NOW). Start 11:51 11/15/2016 Anastacio Seth R.N. Medication Administered: PROMETHAZINE [IVPB], Dose: 25 mg IVPB over 1 hour(s), Rate: 1000 mL/hr, Dispensed: 1000 mL bag, Site: #1 right foot. Medication Ordered: Promethazine IV 25 mg (HIGH ALERT MEDICATION, NOW). Given 13:19 11/15/2016 Anastacio Seth R.N. Medication Administered: VISTARIL [IM] (HYDROXYZINE HCL), Dose: 50 mg IM. Medication Ordered: Vistaril IM 50 mg (NOW, Do not administer intravenously).
--- NOTE | 2016-11-15 22:38 | ED DISCHARGE INSTRUCTIONS ---
Patient: CAMILLE OSHEA General Instructions [facility] VisitID: [id number] [place] [address] 36y, F Registration Date/Time: 11/15/2016 11/15/2016 13:03 BP: 141/97. HR: 110. RR: 16. O2 saturation: 100%. Temp: 98.6 F. Pain level now: 08/14. Vital Signs: have been reviewed. Hypertensive. Tachycardic. Respiratory rate normal. Oxygen saturation normal. Narcotic withdrawal INSTRUCTIONS Your Current Medications: CONTINUE TAKING THE FOLLOWING MEDICATIONS: Albuterol Sulfate Inhalation. Aspirin Oral : prn. Prescription Medications: Clonidine 0.1 mg: take 1 orally every 12 hours. Dispense thirty (30). No refills. Vistaril 50 mg: take 1 orally every 6 hours as needed for anxiety. Dispense twenty (20). No refill. Substitution is permissible. Promethazine Tablets 25 mg: take 1 tablet orally every 6 hours as needed for nausea and vomiting. Dispense fifteen (15). No refill. Follow-up: Follow up with your doctor tomorrow as scheduled. Screening today revealed the patient's blood pressure to be in the hypertensive range. The patient should follow up with a primary care provider for blood pressure management. ADDITIONAL INFORMATION Clonidine Hydrochloride Oral tablet What is this medicine? CLONIDINE (KLOE ni enoc) is used to treat high blood pressure. How should I use this medicine? Take this medicine by mouth with a glass of water. Follow the directions on the prescription label. Take your doses at regular intervals. Do not take your medicine more often than directed. Do not suddenly stop taking this medicine. You must gradually reduce the dose or you may get a dangerous increase in blood pressure. Ask your doctor or health field care coordinator for advice. Talk to your naval inspector regarding the use of this medicine in children. Special care may be needed. What side effects may I notice from receiving this medicine? Side effects that you should report to your doctor or health field care coordinator as soon as possible: allergic reactions like skin rash, itching or hives, swelling of the face, lips, or tongue anxiety, nervousness chest pain depression fast, irregular heartbeat swelling of feet or legs unusually weak or tired Side effects that usually do not require medical attention (report to your doctor or health field care coordinator if they continue or are bothersome): change in sex drive or performance constipation headache What may interact with this medicine? Do not take this medicine with any of the following medications: MAOIs like Carbex, Eldepryl, Marplan, Nardil, and Parnate This medicine may also interact with the following medications: barbiturate medicines for inducing sleep or treating seizures like phenobarbital certain medicines for blood pressure, heart disease, irregular heart beat certain medicines for depression, anxiety, or psychotic disturbances prescription pain medicines What if I miss a dose? If you miss a dose, take it as soon as you can. If it is almost time for your next dose, take only that dose. Do not take double or extra doses. Where should I keep my medicine? Keep out of the reach of children. Store at room temperature between 15 and 30 degrees C (59 and 86 degrees F). Protect from light. Keep container tightly closed. Throw away any unused medicine after the expiration date. What should I tell my health care provider before I take this medicine? They need to know if you have any of these conditions: kidney disease an unusual or allergic reaction to clonidine, other medicines, foods, dyes, or preservatives or trying to get breast-feeding What should I watch for while using this medicine? Visit your doctor or health field care coordinator for regular checks on your progress. Check your heart rate and blood pressure regularly while you are taking this medicine. Ask your doctor or health field care coordinator what your heart rate should be and when you should contact him or her. You may get drowsy or dizzy. Do not drive, use machinery, or do anything that needs mental alertness until you know how this medicine affects you. To avoid dizzy or fainting spells, do not stand or sit up quickly, especially if you are an older person. Alcohol can make you more drowsy and dizzy. Avoid alcoholic drinks. Your mouth may get dry. Chewing sugarless gum or sucking hard candy, and drinking plenty of water will help. Do not treat yourself for coughs, colds, or pain while you are taking this medicine without asking your doctor or health field care coordinator for advice. Some ingredients may increase your blood pressure. If you are going to have surgery tell your doctor or health field care coordinator that you are taking this medicine. Hydroxyzine Pamoate Oral capsule What is this medicine? HYDROXYZINE (aleksandra DROX i zeen) is an antihistamine. This medicine is used to treat allergy symptoms. It is also used to treat anxiety and tension. This medicine can be used with other medicines to induce sleep before surgery. How should I use this medicine? Take this medicine by mouth with a full glass of water. Follow the directions on the prescription label. You may take this medicine with food or on an empty stomach. Take your medicine at regular intervals. Do not take your medicine more often than directed. Talk to your naval inspector regarding the use of this medicine in children. Special care may be needed. While this drug may be prescribed for children as young as 6 years of age for selected conditions, precautions do apply. Patients over 65 years old may have a stronger reaction and need a smaller dose. What side effects may I notice from receiving this medicine? Side effects that you should report to your doctor or health field care coordinator as soon as possible: fast or irregular heartbeat difficulty passing urine seizures slurred speech or confusion tremor Side effects that usually do not require medical attention (report to your doctor or health field care coordinator if they continue or are bothersome): constipation drowsiness fatigue headache stomach upset What may interact with this medicine? alcohol barbiturate medicines for sleep or seizures medicines for colds, allergies medicines for depression, anxiety, or emotional disturbances medicines for pain medicines for sleep muscle relaxants What if I miss a dose? If you miss a dose, take it as soon as you can. If it is almost time for your next dose, take only that dose. Do not take double or extra doses. Where should I keep my medicine? Keep out of the reach of children. Store at room temperature between 15 and 30 degrees C (59 and 86 degrees F). Keep container tightly closed. Throw away any unused medicine after the expiration date. What should I tell my health care provider before I take this medicine? They need to know if you have any of these conditions: any chronic illness difficulty passing urine glaucoma heart disease kidney disease liver disease lung disease an unusual or allergic reaction to hydroxyzine, cetirizine, other medicines, foods, dyes, or preservatives or trying to get breast-feeding What should I watch for while using this medicine? Tell your doctor or health field care coordinator if your symptoms do not improve. You may get drowsy or dizzy. Do not drive, use machinery, or do anything that needs mental alertness until you know how this medicine affects you. Do not stand or sit up quickly, especially if you are an older patient. This reduces the risk of dizzy or fainting spells. Alcohol may interfere with the effect of this medicine. Avoid alcoholic drinks. Your mouth may get dry. Chewing sugarless gum or sucking hard candy, and drinking plenty of water may help. Contact your doctor if the problem does not go away or is severe. This medicine may cause dry eyes and blurred vision. If you wear contact lenses you may feel some discomfort. Lubricating drops may help. See your eye doctor if the problem does not go away or is severe. If you are receiving skin tests for allergies, tell your doctor you are using this medicine. Promethazine Hydrochloride Oral tablet What is this medicine? PROMETHAZINE (proe METH a zeen) is an antihistamine. It is used to treat allergic reactions and to treat or prevent nausea and vomiting from illness or motion sickness. It is also used to make you sleep before surgery, and to help treat pain or nausea after surgery. How should I use this medicine? Take this medicine by mouth with a glass of water. Follow the directions on the prescription label. Take your doses at regular intervals. Do not take your medicine more often than directed. Talk to your naval inspector regarding the use of this medicine in children. Special care may be needed. This medicine should not be given to infants and children younger than 2 years old. What side effects may I notice from receiving this medicine? Side effects that you should report to your doctor or health field care coordinator as soon as possible: blurred vision irregular heartbeat, palpitations or chest pain muscle or facial twitches pain or difficulty passing urine seizures skin rash slowed or shallow breathing unusual bleeding or bruising yellowing of the eyes or skin Side effects that usually do not require medical attention (report to your doctor or health field care coordinator if they continue or are bothersome): headache nightmares, agitation, nervousness, excitability, not able to sleep (these are more likely in children) stuffy nose What may interact with this medicine? Do not take this medicine with any of the following medications: medicines called MAO Inhibitors like Nardil, Parnate, Marplan, Eldepryl other phenothiazines like trimethobenzamide This medicine may also interact with the following medications: barbiturates like phenobarbital bromocriptine certain antidepressants certain antihistamines used in allergy or cold medicines epinephrine levodopa medicines for sleep medicines for mental problems and psychotic disturbances medicines for movement abnormalities as in Parkinson's disease, or for gastrointestinal problems muscle relaxants prescription pain medicines What if I miss a dose? If you miss a dose, take it as soon as you can. If it is almost time for your next dose, take only that dose. Do not take double or extra doses. Where should I keep my medicine? Keep out of the reach of children. Store at room temperature, between 20 and 25 degrees C (68 and 77 degrees F). Protect from light. Throw away any unused medicine after the expiration date. What should I tell my health care provider before I take this medicine? They need to know if you have any of these conditions: glaucoma high blood pressure or heart disease kidney disease liver disease lung or breathing disease, like asthma prostate trouble pain or difficulty passing urine seizures an unusual or allergic reaction to promethazine or phenothiazines, other medicines, foods, dyes, or preservatives or trying to get breast-feeding What should I watch for while using this medicine? Tell your doctor or health field care coordinator if your symptoms do not start to get better in 1 to 2 days. You may get drowsy or dizzy. Do not drive, use machinery, or do anything that needs mental alertness until you know how this medicine affects you. To reduce the risk of dizzy or fainting spells, do not stand or sit up quickly, especially if you are an older patient. Alcohol may increase dizziness and drowsiness. Avoid alcoholic drinks. Your mouth may get dry. Chewing sugarless gum or sucking hard candy, and drinking plenty of water may help. Contact your doctor if the problem does not go away or is severe. This medicine may cause dry eyes and blurred vision. If you wear contact lenses you may feel some discomfort. Lubricating drops may help. See your eye doctor if the problem does not go away or is severe. This medicine can make you more sensitive to the sun. Keep out of the sun. If you cannot avoid being in the sun, wear protective clothing and use sunscreen. Do not use sun lamps or tanning beds/booths. If you are diabetic, check your blood-sugar levels regularly. You have been given the following additional information: Clonidine Hydrochloride Oral tablet Hydroxyzine Pamoate Oral capsule Promethazine Hydrochloride Oral tablet (Electronically signed by Evaristo Rob Dr. 11/15/2016 22:38)
--- NOTE | 2016-11-15 22:38 | ED DISCHARGE INSTRUCTIONS ---
Patient: CAMILLE OSHEA General Instructions [facility] VisitID: [id number] [place] [address] 36y, F Registration Date/Time: 11/15/2016 11/15/2016 13:03 BP: 141/97. HR: 110. RR: 16. O2 saturation: 100%. Temp: 98.6 F. Pain level now: 08/14. Vital Signs: have been reviewed. Hypertensive. Tachycardic. Respiratory rate normal. Oxygen saturation normal. Narcotic withdrawal INSTRUCTIONS Your Current Medications: CONTINUE TAKING THE FOLLOWING MEDICATIONS: Albuterol Sulfate Inhalation. Aspirin Oral : prn. Prescription Medications: Clonidine 0.1 mg: take 1 orally every 12 hours. Dispense thirty (30). No refills. Vistaril 50 mg: take 1 orally every 6 hours as needed for anxiety. Dispense twenty (20). No refill. Substitution is permissible. Promethazine Tablets 25 mg: take 1 tablet orally every 6 hours as needed for nausea and vomiting. Dispense fifteen (15). No refill. Follow-up: Follow up with your doctor tomorrow as scheduled. Screening today revealed the patient's blood pressure to be in the hypertensive range. The patient should follow up with a primary care provider for blood pressure management. ADDITIONAL INFORMATION Clonidine Hydrochloride Oral tablet What is this medicine? CLONIDINE (KLOE ni enoc) is used to treat high blood pressure. How should I use this medicine? Take this medicine by mouth with a glass of water. Follow the directions on the prescription label. Take your doses at regular intervals. Do not take your medicine more often than directed. Do not suddenly stop taking this medicine. You must gradually reduce the dose or you may get a dangerous increase in blood pressure. Ask your doctor or health behavioral health care manager for advice. Talk to your aquatics coordinator regarding the use of this medicine in children. Special care may be needed. What side effects may I notice from receiving this medicine? Side effects that you should report to your doctor or health behavioral health care manager as soon as possible: allergic reactions like skin rash, itching or hives, swelling of the face, lips, or tongue anxiety, nervousness chest pain depression fast, irregular heartbeat swelling of feet or legs unusually weak or tired Side effects that usually do not require medical attention (report to your doctor or health behavioral health care manager if they continue or are bothersome): change in sex drive or performance constipation headache What may interact with this medicine? Do not take this medicine with any of the following medications: MAOIs like Carbex, Eldepryl, Marplan, Nardil, and Parnate This medicine may also interact with the following medications: barbiturate medicines for inducing sleep or treating seizures like phenobarbital certain medicines for blood pressure, heart disease, irregular heart beat certain medicines for depression, anxiety, or psychotic disturbances prescription pain medicines What if I miss a dose? If you miss a dose, take it as soon as you can. If it is almost time for your next dose, take only that dose. Do not take double or extra doses. Where should I keep my medicine? Keep out of the reach of children. Store at room temperature between 15 and 30 degrees C (59 and 86 degrees F). Protect from light. Keep container tightly closed. Throw away any unused medicine after the expiration date. What should I tell my health care provider before I take this medicine? They need to know if you have any of these conditions: kidney disease an unusual or allergic reaction to clonidine, other medicines, foods, dyes, or preservatives or trying to get breast-feeding What should I watch for while using this medicine? Visit your doctor or health behavioral health care manager for regular checks on your progress. Check your heart rate and blood pressure regularly while you are taking this medicine. Ask your doctor or health behavioral health care manager what your heart rate should be and when you should contact him or her. You may get drowsy or dizzy. Do not drive, use machinery, or do anything that needs mental alertness until you know how this medicine affects you. To avoid dizzy or fainting spells, do not stand or sit up quickly, especially if you are an older person. Alcohol can make you more drowsy and dizzy. Avoid alcoholic drinks. Your mouth may get dry. Chewing sugarless gum or sucking hard candy, and drinking plenty of water will help. Do not treat yourself for coughs, colds, or pain while you are taking this medicine without asking your doctor or health behavioral health care manager for advice. Some ingredients may increase your blood pressure. If you are going to have surgery tell your doctor or health behavioral health care manager that you are taking this medicine. Hydroxyzine Pamoate Oral capsule What is this medicine? HYDROXYZINE (aleksandra DROX i zeen) is an antihistamine. This medicine is used to treat allergy symptoms. It is also used to treat anxiety and tension. This medicine can be used with other medicines to induce sleep before surgery. How should I use this medicine? Take this medicine by mouth with a full glass of water. Follow the directions on the prescription label. You may take this medicine with food or on an empty stomach. Take your medicine at regular intervals. Do not take your medicine more often than directed. Talk to your aquatics coordinator regarding the use of this medicine in children. Special care may be needed. While this drug may be prescribed for children as young as 6 years of age for selected conditions, precautions do apply. Patients over 65 years old may have a stronger reaction and need a smaller dose. What side effects may I notice from receiving this medicine? Side effects that you should report to your doctor or health behavioral health care manager as soon as possible: fast or irregular heartbeat difficulty passing urine seizures slurred speech or confusion tremor Side effects that usually do not require medical attention (report to your doctor or health behavioral health care manager if they continue or are bothersome): constipation drowsiness fatigue headache stomach upset What may interact with this medicine? alcohol barbiturate medicines for sleep or seizures medicines for colds, allergies medicines for depression, anxiety, or emotional disturbances medicines for pain medicines for sleep muscle relaxants What if I miss a dose? If you miss a dose, take it as soon as you can. If it is almost time for your next dose, take only that dose. Do not take double or extra doses. Where should I keep my medicine? Keep out of the reach of children. Store at room temperature between 15 and 30 degrees C (59 and 86 degrees F). Keep container tightly closed. Throw away any unused medicine after the expiration date. What should I tell my health care provider before I take this medicine? They need to know if you have any of these conditions: any chronic illness difficulty passing urine glaucoma heart disease kidney disease liver disease lung disease an unusual or allergic reaction to hydroxyzine, cetirizine, other medicines, foods, dyes, or preservatives or trying to get breast-feeding What should I watch for while using this medicine? Tell your doctor or health behavioral health care manager if your symptoms do not improve. You may get drowsy or dizzy. Do not drive, use machinery, or do anything that needs mental alertness until you know how this medicine affects you. Do not stand or sit up quickly, especially if you are an older patient. This reduces the risk of dizzy or fainting spells. Alcohol may interfere with the effect of this medicine. Avoid alcoholic drinks. Your mouth may get dry. Chewing sugarless gum or sucking hard candy, and drinking plenty of water may help. Contact your doctor if the problem does not go away or is severe. This medicine may cause dry eyes and blurred vision. If you wear contact lenses you may feel some discomfort. Lubricating drops may help. See your eye doctor if the problem does not go away or is severe. If you are receiving skin tests for allergies, tell your doctor you are using this medicine. Promethazine Hydrochloride Oral tablet What is this medicine? PROMETHAZINE (proe METH a zeen) is an antihistamine. It is used to treat allergic reactions and to treat or prevent nausea and vomiting from illness or motion sickness. It is also used to make you sleep before surgery, and to help treat pain or nausea after surgery. How should I use this medicine? Take this medicine by mouth with a glass of water. Follow the directions on the prescription label. Take your doses at regular intervals. Do not take your medicine more often than directed. Talk to your aquatics coordinator regarding the use of this medicine in children. Special care may be needed. This medicine should not be given to infants and children younger than 2 years old. What side effects may I notice from receiving this medicine? Side effects that you should report to your doctor or health behavioral health care manager as soon as possible: blurred vision irregular heartbeat, palpitations or chest pain muscle or facial twitches pain or difficulty passing urine seizures skin rash slowed or shallow breathing unusual bleeding or bruising yellowing of the eyes or skin Side effects that usually do not require medical attention (report to your doctor or health behavioral health care manager if they continue or are bothersome): headache nightmares, agitation, nervousness, excitability, not able to sleep (these are more likely in children) stuffy nose What may interact with this medicine? Do not take this medicine with any of the following medications: medicines called MAO Inhibitors like Nardil, Parnate, Marplan, Eldepryl other phenothiazines like trimethobenzamide This medicine may also interact with the following medications: barbiturates like phenobarbital bromocriptine certain antidepressants certain antihistamines used in allergy or cold medicines epinephrine levodopa medicines for sleep medicines for mental problems and psychotic disturbances medicines for movement abnormalities as in Parkinson's disease, or for gastrointestinal problems muscle relaxants prescription pain medicines What if I miss a dose? If you miss a dose, take it as soon as you can. If it is almost time for your next dose, take only that dose. Do not take double or extra doses. Where should I keep my medicine? Keep out of the reach of children. Store at room temperature, between 20 and 25 degrees C (68 and 77 degrees F). Protect from light. Throw away any unused medicine after the expiration date. What should I tell my health care provider before I take this medicine? They need to know if you have any of these conditions: glaucoma high blood pressure or heart disease kidney disease liver disease lung or breathing disease, like asthma prostate trouble pain or difficulty passing urine seizures an unusual or allergic reaction to promethazine or phenothiazines, other medicines, foods, dyes, or preservatives or trying to get breast-feeding What should I watch for while using this medicine? Tell your doctor or health behavioral health care manager if your symptoms do not start to get better in 1 to 2 days. You may get drowsy or dizzy. Do not drive, use machinery, or do anything that needs mental alertness until you know how this medicine affects you. To reduce the risk of dizzy or fainting spells, do not stand or sit up quickly, especially if you are an older patient. Alcohol may increase dizziness and drowsiness. Avoid alcoholic drinks. Your mouth may get dry. Chewing sugarless gum or sucking hard candy, and drinking plenty of water may help. Contact your doctor if the problem does not go away or is severe. This medicine may cause dry eyes and blurred vision. If you wear contact lenses you may feel some discomfort. Lubricating drops may help. See your eye doctor if the problem does not go away or is severe. This medicine can make you more sensitive to the sun. Keep out of the sun. If you cannot avoid being in the sun, wear protective clothing and use sunscreen. Do not use sun lamps or tanning beds/booths. If you are diabetic, check your blood-sugar levels regularly. You have been given the following additional information: Clonidine Hydrochloride Oral tablet Hydroxyzine Pamoate Oral capsule Promethazine Hydrochloride Oral tablet (Electronically signed by Evaristo Rob Dr. 11/15/2016 22:38)
--- NOTE | 2016-11-15 22:38 | ED MAR SUMMARY ---
..... Medication Administration Record [facility] [address] [place] [address] Patient: CAMILLE OSHEA Visit ID: [id number] 36y, F Weight: 72.5 kg Height/Length: 64 in BMI: 27.5 ALLERGIES: Compazine, Sulfa Antibiotics Given 11:50 11/15/2016 Anastacio Seth R.N. Medication Administered: CLONIDINE [PO], Dose: 0.1 mg Tablets PO. Medication Ordered: Clonidine PO 0.1 mg (NOW). Start 11:51 11/15/2016 Anastacio Seth R.N., Stop 15:26 11/15/2016 Anastacio Seth R.N. Medication Administered: IV NS (SALINE), Dose: IV Fluids, Bolus: 1000 mL wide open, Site: #1 right foot. Medication Ordered: IV NS : initial bolus none -, then 1000 mL/hr for X1 (NOW). Start 11:51 11/15/2016 Anastacio Seth R.N. Medication Administered: PROMETHAZINE [IVPB], Dose: 25 mg IVPB over 1 hour(s), Rate: 1000 mL/hr, Dispensed: 1000 mL bag, Site: #1 right foot. Medication Ordered: Promethazine IV 25 mg (HIGH ALERT MEDICATION, NOW). Given 13:19 11/15/2016 Anastacio Seth R.N. Medication Administered: VISTARIL [IM] (HYDROXYZINE HCL), Dose: 50 mg IM. Medication Ordered: Vistaril IM 50 mg (NOW, Do not administer intravenously).
--- NOTE | 2016-11-15 22:38 | ED MED RECONCILIATION SUMMARY ---
Patient: CAMILLE OSHEA Medication Reconciliation Report [facility] VisitID: [id number] [address] [place] [address] 36y, F Registration Date/Time: 11/15/2016 Weight: 72.5 kg Height/Length: 64 in. BMI: 27.5 ALLERGIES: Compazine, Sulfa Antibiotics The patient's Home Medications are listed below: CONTINUE TAKING THE FOLLOWING MEDICATIONS: Albuterol Sulfate Inhalation Aspirin Oral The source(s) of the original Home Medication information: Not obtained. The following Medications were given to the patient in the Emergency Department: Clonidine [PO] PO 0.1 mg, administered: 11/15/2016 11:50:00 AM IV NS IV Fluids bolus 1000 mL wide open, administered: 11/15/2016 11:51:00 AM PROMETHAZINE [IVPB] IVPB bolus 0, then 25 mg 1000 mL/hr, administered: 11/15/2016 11:51:00 AM Vistaril [IM] IM 50 mg, administered: 11/15/2016 1:19:00 PM The following Medications were prescribed to the patient: Clonidine 0.1 mg: take 1 orally every 12 hours. Dispense thirty (30). No refills. -- Evaristo Rob Dr. Vistaril 50 mg: take 1 orally every 6 hours as needed for anxiety. Dispense twenty (20). No refill. Substitution is permissible. -- Evaristo Rob Dr. Promethazine Tablets 25 mg: take 1 tablet orally every 6 hours as needed for nausea and vomiting. Dispense fifteen (15). No refill. -- Evaristo Rob Dr.
== END 2016-11-15 15:27 | disposition home or self-care (01) ==
LOC: ED SRH 10:17
DX: F11.23 Opioid dependence with withdrawal (principal); D84.9 Immunodeficiency, unspecified; F17.210 Nicotine dependence, cigarettes, uncomplicated; Z88.2 Allergy status to sulfonamides; Z88.8 Allergy status to other drugs, medicaments and biological substances
CPT/HCPCS: 90004; 90469; 92760; 92761; 92762; 92763; 92764; 92765; 92766; 92767

== ENCOUNTER 2016-11-26 19:22 | Emergency (ER) | payer OTHER ==
--- NOTE | 2016-11-26 20:02 | ED NURSING NOTES ---
Clinical Report - Nurses [facility] [address] [place] [address] 11/26/2016 19:23 Patient: CAMILLE OSHEA TRIAGE Acuity: LEVEL 4. Chief Complaint: BOIL and INSECT BITE Alert. No acute distress. SEPSIS SCREEN: Sepsis Screen. Negative (no infection suspected/documented). --19:39 Carolyne Maldonado R.N. 19:33 11/26/16. BP: 163/96. HR: 89. RR: 16. O2 saturation: 100%. Temp: 98.2 F (oral). Pain level now: 05/14. --19:39 Carolyne Maldonado R.N. Weight: 68 kg stated. Height/Length: 64 inches Per Patient. BMI: 25.8. --19:36 Carolyne Maldonado R.N. Medications Albuterol Sulfate Inhalation. --19:34 Carolyne Maldonado R.N. Medication/allergy information source: the patient. --19:39 Carolyne Maldonado R.N. Allergies Compazine. --19:34 Carolyne Maldonado R.N. Sulfa Antibiotics. --19:34 Carolyne Maldonado R.N. History Arrived by private vehicle. Historian: patient. Accompanied by (friend). Primary physician ([facility]). This started yesterday. It is described as painful. SOCIAL HX: Current every day heavy tobacco smoker (cigarette)- 1 pack per day. 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 (pt reports no drug use for 12 days). No alcohol use. FALL RISK ASSESSMENT: Fall risk assessment completed. No fall risk identified. NUTRITIONAL RISK ASSESSMENT: The nutritional risk assessment revealed no deficiencies. FUNCTIONAL ASSESSMENT: Functional assessment: no impairments noted. LEARNING NEEDS ASSESSMENT: The learning needs assessment revealed no barriers. SKIN INTEGRITY ASSESSMENT: Skin integrity risk assessment completed. No skin integrity risk identified. --19:39 Carolyne Maldonado R.N. PROBLEMS: Narcotic Withdrawal. Hives. Bronchitis. Atypical Chest Pain. Viral Disease. Anxiety Reaction. Immunocompromised. Cellulitis. Substance Abuse. Superficial Thrombophlebitis. Constipation. Hepatitis. Gastroenteritis. Lifestyle / Substance Problems. Diarrhea. Abdominal Pain. Abd pain. Pelvic Inflammatory Disease. Immunizations. Fibromyalgia. Degenerative Joint Disease. Asthma. Abscess. Bipolar Disorder. Anxiety disorder. Liver enzymes abnormal. --19:35 Carolyne Maldonado R.N. ADDITIONAL SURGERIES: Cholecystectomy. Dilatation & Curettage. Fracture Repair. --19:35 Carolyne Maldonado R.N. Assessment GENERAL / NEURO / PSYCH: Alert. Oriented X 4. Appears in no acute distress. Patient appears calm and cooperative. RESPIRATORY: Respirations not labored. CVS: Capillary refill less than 2 seconds. GI / : Abdomen nontender. SKIN: Mucous membranes are pink. Skin is warm and dry. --19:39 Carolyne Maldonado R.N. Interventions ID band on patient. To treatment room. --19:39 Carolyne Maldonado R.N. PHYSICAL ASSESSMENT Ambulatory to room. GENERAL / NEURO / PSYCH: Alert. The patient does not appear to be in acute distress. Oriented X 4. HEENT: Mucous membranes are pink. RESPIRATORY: Respirations not labored. CVS: Capillary refill less than 2 seconds. GI / : Abdomen nontender. SKIN: Skin is intact, warm and dry. No skin rash. --19:39 Carolyne Maldonado R.N. NURSING PROGRESS NOTES 19:40 11/26/16. Patient gowned. Two patient identifiers checked. Call light placed in reach. Side rails up. Bed placed in lowest position. Brakes of bed on. Patient ready for evaluation- chart flagged. --19:40 Carolyne Maldonado R.N. 20:08 11/26/2016 DOXYCYCLINE HYCLATE PO 100 mg given. Allergies verified and confirmed 5 rights. --20:08 Chele Calhoun R.N. Applied clean bulky dressing consisting of 4x4 gauze. Secured with tape. --20:19 Misael Reid, ER Retail Manager 20:22 Patient requested smaller dressing - dressing removed, new dressing applied with 2x2's and tape. --20:28 Chele Calhoun R.N. 20:26. The patient is calm and resting quietly. RESPIRATORY: No respiratory distress. SKIN: Skin is warm and dry. Skin color within normal limits. --20:28 Chele Calhoun R.N. DISPOSITION / DISCHARGE Departure time: 20:28. Condition at departure: stable. No learning barriers present. Discharge instructions provided and reviewed with plugger worker and the patient. Reviewed medication(s) side effects, precautions, dosing and course information. Prescription(s) given to the patient. Patient verbalized understanding. Written instructions provided in Spanish. The patient was discharged home and accompanied by plugger worker. She left the Emergency Department ambulatory and via private vehicle. Desizing Machine Operator driving. FALL RISK ASSESSMENT: Fall risk assessment completed. No fall risk identified. --20:28 Chele Calhoun R.N. Locked/Released at 11/26/2016 21:14 by Chele Calhoun R.N.
--- NOTE | 2016-11-26 20:02 | ED ORDER SUMMARY ---
..... Patient: CAMILLE OSHEA OrderSheet [facility] VisitID: [id number] [address] [place] [address] 36y, F Registration Date/Time: 11/26/2016 ORDER SHEET Weight: 68.0 kg (stated) Allergies: Compazine, Sulfa Antibiotics GENERAL ORDERS: Dress Wounds (20:19 11/26/2016 [facility] ER Nca Certified Concierge verbal order read back to Evens Morrison) (20:19 [facility] ER Nca Certified Concierge) MEDICATION ORDERS: Doxycycline Hyclate PO 100 mg (NOW) (20:01 11/26/2016 Evens Morrison) ([facility] 20:05 Jeronimo R.N.) (20:08 Jeronimo R.N.) IV FLUIDS: ORDER SHEET NOTES: [Electronically signed by Nunu Ziegler P.A.-C (20:44 11/26/2016)] [Electronically signed by Chele Calhoun R.N. (21:14 11/26/2016)] [Electronically locked/signed by Chele Calhoun R.N. (21:14 11/26/2016)]
--- NOTE | 2016-11-26 20:02 | ED ORDER SUMMARY ---
..... Patient: CAMILLE OSHEA OrderSheet [facility] VisitID: [id number] [address] [place] [address] 36y, F Registration Date/Time: 11/26/2016 ORDER SHEET Weight: 68.0 kg (stated) Allergies: Compazine, Sulfa Antibiotics GENERAL ORDERS: Dress Wounds (20:19 11/26/2016 [facility] ER Geospatial Systems Integrator verbal order read back to Evens Morrison) (20:19 [facility] ER Geospatial Systems Integrator) MEDICATION ORDERS: Doxycycline Hyclate PO 100 mg (NOW) (20:01 11/26/2016 Evens Morrison) ([facility] 20:05 Jeronimo R.N.) (20:08 Jeronimo R.N.) IV FLUIDS: ORDER SHEET NOTES: [Electronically signed by Nunu Ziegler P.A.-C (20:44 11/26/2016)] [Electronically signed by Chele Calhoun R.N. (21:14 11/26/2016)] [Electronically locked/signed by Chele Calhoun R.N. (21:14 11/26/2016)]
--- NOTE | 2016-11-26 20:02 | ED CLINICAL REPORT ---
Clinical Report - Physicians/Mid Levels [facility] [address] [place] [address] 11/26/2016 19:23 Patient: CAMILLE OSHEA Time Seen: 2009Nov 26 2016. Arrived- By private vehicle. Historian- patient. HISTORY OF PRESENT ILLNESS Chief Complaint: SKIN RASH, LESION, BOIL and TENDER AREA. This started 1 days SCADA OPERATOR and is still present. It is described as painful. A cause has been identified. (swelling to right gluteus for 4 days, has had warm packs, no drainage, spider bite). REVIEW OF SYSTEMS No fever, cough, nausea or diarrhea. All systems otherwise negative, except as recorded above. PAST HISTORY Tetanus immunization status is up-to-date. SOCIAL HISTORY History of drug use clean now for 12 days. ADDITIONAL NOTES The nursing notes have been reviewed. PHYSICAL EXAM Vital Signs: 11/26/2016 19:33 BP: 163/96. HR: 89. RR: 16. O2 saturation: 100%. Temp: 98.2 F. Pain level now: 7/10. Appearance: Alert. No acute distress. CVS: Normal heart rate and rhythm. Heart sounds normal. Respiratory: No respiratory distress. No respiratory distress. Breath sounds normal. No wheezes. Skin: Skin warm. Erythema. Tender indurated area. Cellulitis. There is induration. PROGRESS AND PROCEDURES Incision & Drainage of Abscess: Time: 2024Nov 26 2016. Time-out completed immediately before the procedure. The abscess is located (R. gluteus). The risks of the procedure, benefits and alternatives were explained. Consent was obtained. Local anesthesia provided using 1% lidocaine with epi. Skin cleansed with Betadine. The abscess was incised with a #11 surgical blade. A small amount of pus was drained. Cavity was packed with gauze. A dressing was applied. Course of Care: Pt in the er stable, afebrile. H/o mrsa. Clean of drugs for now 12 days. Will tx with abx. Pt to f/u outpatient remove packing in shower. Abd soft/ non tender. NO lymphagetic streaking. 11/26/2016 19:33 BP: 163/96. HR: 89. RR: 16. O2 saturation: 100%. Temp: 98.2 F. Pain level now: 10. Patient is stable. Physical exam findings are improved. Symptoms better. Patient/family counseled. Disposition: Discharged. Condition: good. CLINICAL IMPRESSION Single abscess with incision and drainage (R. Gluteus). INSTRUCTIONS (remove packing in 48 hours in shower). Prescription Medications: Doxycycline 100 mg: Take 1 capsule orally every 12 hours for 10 days. No refill. Follow-up: Follow up with your doctor in three days. Understanding of the discharge instructions verbalized by patient. (Electronically signed by Nunu Ziegler P.A.-C 11/26/2016 20:44)
--- NOTE | 2016-11-26 20:02 | ED NURSING NOTES ---
Clinical Report - Nurses [facility] [address] [place] [address] 11/26/2016 19:23 Patient: CAMILLE OSHEA TRIAGE Acuity: LEVEL 4. Chief Complaint: BOIL and INSECT BITE Alert. No acute distress. SEPSIS SCREEN: Sepsis Screen. Negative (no infection suspected/documented). --19:39 Carolyne Maldonado R.N. 19:33 11/26/16. BP: 163/96. HR: 89. RR: 16. O2 saturation: 100%. Temp: 98.2 F (oral). Pain level now: 05/14. --19:39 Carolyne Maldonado R.N. Weight: 68 kg stated. Height/Length: 64 inches Per Patient. BMI: 25.8. --19:36 Carolyne Maldonado R.N. Medications Albuterol Sulfate Inhalation. --19:34 Carolyne Maldonado R.N. Medication/allergy information source: the patient. --19:39 Carolyne Maldonado R.N. Allergies Compazine. --19:34 Carolyne Maldonado R.N. Sulfa Antibiotics. --19:34 Carolyne Maldonado R.N. History Arrived by private vehicle. Historian: patient. Accompanied by (friend). Primary physician ([facility]). This started yesterday. It is described as painful. SOCIAL HX: Current every day heavy tobacco smoker (cigarette)- 1 pack per day. 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 (pt reports no drug use for 12 days). No alcohol use. FALL RISK ASSESSMENT: Fall risk assessment completed. No fall risk identified. NUTRITIONAL RISK ASSESSMENT: The nutritional risk assessment revealed no deficiencies. FUNCTIONAL ASSESSMENT: Functional assessment: no impairments noted. LEARNING NEEDS ASSESSMENT: The learning needs assessment revealed no barriers. SKIN INTEGRITY ASSESSMENT: Skin integrity risk assessment completed. No skin integrity risk identified. --19:39 Carolyne Maldonado R.N. PROBLEMS: Narcotic Withdrawal. Hives. Bronchitis. Atypical Chest Pain. Viral Disease. Anxiety Reaction. Immunocompromised. Cellulitis. Substance Abuse. Superficial Thrombophlebitis. Constipation. Hepatitis. Gastroenteritis. Lifestyle / Substance Problems. Diarrhea. Abdominal Pain. Abd pain. Pelvic Inflammatory Disease. Immunizations. Fibromyalgia. Degenerative Joint Disease. Asthma. Abscess. Bipolar Disorder. Anxiety disorder. Liver enzymes abnormal. --19:35 Carolyne Maldonado R.N. ADDITIONAL SURGERIES: Cholecystectomy. Dilatation & Curettage. Fracture Repair. --19:35 Carolyne Maldonado R.N. Assessment GENERAL / NEURO / PSYCH: Alert. Oriented X 4. Appears in no acute distress. Patient appears calm and cooperative. RESPIRATORY: Respirations not labored. CVS: Capillary refill less than 2 seconds. GI / : Abdomen nontender. SKIN: Mucous membranes are pink. Skin is warm and dry. --19:39 Carolyne Maldonado R.N. Interventions ID band on patient. To treatment room. --19:39 Carolyne Maldonado R.N. PHYSICAL ASSESSMENT Ambulatory to room. GENERAL / NEURO / PSYCH: Alert. The patient does not appear to be in acute distress. Oriented X 4. HEENT: Mucous membranes are pink. RESPIRATORY: Respirations not labored. CVS: Capillary refill less than 2 seconds. GI / : Abdomen nontender. SKIN: Skin is intact, warm and dry. No skin rash. --19:39 Carolyne Maldonado R.N. NURSING PROGRESS NOTES 19:40 11/26/16. Patient gowned. Two patient identifiers checked. Call light placed in reach. Side rails up. Bed placed in lowest position. Brakes of bed on. Patient ready for evaluation- chart flagged. --19:40 Carolyne Maldonado R.N. 20:08 11/26/2016 DOXYCYCLINE HYCLATE PO 100 mg given. Allergies verified and confirmed 5 rights. --20:08 Chele Calhoun R.N. Applied clean bulky dressing consisting of 4x4 gauze. Secured with tape. --20:19 Misael Reid, ER Exhaust Tender 20:22 Patient requested smaller dressing - dressing removed, new dressing applied with 2x2's and tape. --20:28 Chele Calhoun R.N. 20:26. The patient is calm and resting quietly. RESPIRATORY: No respiratory distress. SKIN: Skin is warm and dry. Skin color within normal limits. --20:28 Chele Calhoun R.N. DISPOSITION / DISCHARGE Departure time: 20:28. Condition at departure: stable. No learning barriers present. Discharge instructions provided and reviewed with career resource technician and the patient. Reviewed medication(s) side effects, precautions, dosing and course information. Prescription(s) given to the patient. Patient verbalized understanding. Written instructions provided in Swedish. The patient was discharged home and accompanied by career resource technician. She left the Emergency Department ambulatory and via private vehicle. Assistant Merchandise Manager driving. FALL RISK ASSESSMENT: Fall risk assessment completed. No fall risk identified. --20:28 Chele Calhoun R.N. Locked/Released at 11/26/2016 21:14 by Chele Calhoun R.N.
--- NOTE | 2016-11-26 20:02 | ED CLINICAL REPORT ---
Clinical Report - Physicians/Mid Levels [facility] [address] [place] [address] 11/26/2016 19:23 Patient: CAMILLE OSHEA Time Seen: 2009Nov 26 2016. Arrived- By private vehicle. Historian- patient. HISTORY OF PRESENT ILLNESS Chief Complaint: SKIN RASH, LESION, BOIL and TENDER AREA. 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 It is described as painful. A cause has been identified. (swelling to right gluteus for 4 days, has had warm packs, no drainage, spider bite). REVIEW OF SYSTEMS No fever, cough, nausea or diarrhea. All systems otherwise negative, except as recorded above. PAST HISTORY Tetanus immunization status is up-to-date. SOCIAL HISTORY History of drug use clean now for 12 days. ADDITIONAL NOTES The nursing notes have been reviewed. PHYSICAL EXAM Vital Signs: 11/26/2016 19:33 BP: 163/96. HR: 89. RR: 16. O2 saturation: 100%. Temp: 98.2 F. Pain level now: 7/10. Appearance: Alert. No acute distress. CVS: Normal heart rate and rhythm. Heart sounds normal. Respiratory: No respiratory distress. No respiratory distress. Breath sounds normal. No wheezes. Skin: Skin warm. Erythema. Tender indurated area. Cellulitis. There is induration. PROGRESS AND PROCEDURES Incision & Drainage of Abscess: Time: 2024Nov 26 2016. Time-out completed immediately before the procedure. The abscess is located (R. gluteus). The risks of the procedure, benefits and alternatives were explained. Consent was obtained. Local anesthesia provided using 1% lidocaine with epi. Skin cleansed with Betadine. The abscess was incised with a #11 surgical blade. A small amount of pus was drained. Cavity was packed with gauze. A dressing was applied. Course of Care: Pt in the er stable, afebrile. H/o mrsa. Clean of drugs for now 12 days. Will tx with abx. Pt to f/u outpatient remove packing in shower. Abd soft/ non tender. NO lymphagetic streaking. 11/26/2016 19:33 BP: 163/96. HR: 89. RR: 16. O2 saturation: 100%. Temp: 98.2 F. Pain level now: 10. Patient is stable. Physical exam findings are improved. Symptoms better. Patient/family counseled. Disposition: Discharged. Condition: good. CLINICAL IMPRESSION Single abscess with incision and drainage (R. Gluteus). INSTRUCTIONS (remove packing in 48 hours in shower). Prescription Medications: Doxycycline 100 mg: Take 1 capsule orally every 12 hours for 10 days. No refill. Follow-up: Follow up with your doctor in three days. Understanding of the discharge instructions verbalized by patient. (Electronically signed by Nunu Ziegler P.A.-C 11/26/2016 20:44)
--- NOTE | 2016-11-26 21:14 | ED DISCHARGE INSTRUCTIONS ---
Patient: CAMILLE OSHEA General Instructions [facility] VisitID: [id number] [place] [address] 36y, F Registration Date/Time: 11/26/2016 Single abscess with incision and drainage (R. Gluteus). INSTRUCTIONS (remove packing in 48 hours in shower). Prescription Medications: Doxycycline 100 mg: Take 1 capsule orally every 12 hours for 10 days. No refill. Follow-up: Follow up with your doctor in three days. Understanding of the discharge instructions verbalized by patient. ADDITIONAL INFORMATION Abscess [Incision & Drainage] An abscess (sometimes called a boil) occurs when bacteria get trapped under the skin and begin to grow. Pus forms inside the abscess as the body responds to the bacteria. An abscess can occur with an insect bite, ingrown hair, blocked oil gland, pimple, cyst, or puncture wound. Treatment of your abscess has required an incision to drain the pus. If the abscess pocket was large, a gauze packing may have been inserted. This will need to be removed and possibly replaced on your next visit. Antibiotics are not required in the treatment of a simple abscess, unless the infection is spreading into the skin around the wound (known as cellulitis). Healing of the wound will take about one to two weeks depending on the size of the abscess. Healthy tissue will grow from the bottom and sides of the opening until it seals over. Home Care: The wound may drain for the first two days. Cover the wound with a clean dry dressing. If the dressing becomes soaked with blood or pus, change it. If a gauze packing was placed inside the abscess cavity, you may be advised to remove it yourself. You may do this in the shower. Once the packing is removed, you should wash the area in the shower or bath 3 to 4 times a day, until the skin opening has closed. If you were prescribed antibiotics, take them as directed until they are all gone. You may use acetaminophen (Tylenol) or ibuprofen (Motrin, Advil) to control pain, unless another pain medicine was prescribed. [ NOTE: If you have liver disease or ever had a stomach ulcer, talk with your doctor before using these medicines.] Follow Up with your doctor as advised by our staff. If a gauze packing was inserted in your wound, it should be removed in 1-2 days. Check your wound every day for the signs of worsening infection listed below. Get Prompt Medical Attention if any of the following occur: Increasing redness or swelling Red streaks in the skin leading away from the wound Increasing local pain or swelling Continued pus draining from the wound two days after treatment Fever of 100.4F (38C) or higher, or as directed by your healthcare provider Staph Infection (MRSA) "Staph" is the short name for the common bacteria called "staphylococcus aureus". Staph bacteria are often present on the skin without causing an infection. If it gets under the skin an infection occurs. This causes redness, tenderness, swelling and sometimes fluid drainage. MRSA stands for "Methicillin-Resistant Staph Aureus". Unlike a common staph infection, MRSA bacteria are resistant to the usual antibiotics and harder to treat. Also, MRSA is more toxic than common staph bacteria. It can spread quickly throughout the body and cause a life-threatening illness. MRSA is spread to others by direct physical contact with the bacteria. MRSA can also be transmitted from items contaminated by a person who has the bacteria, such as bandages, towels, bed sheets, or sports equipment. It is not spread through the air. Once you have a MRSA skin infection, you are at risk of having it recur in the future. If MRSA infection is suspected, the doctor may take a wound culture to confirm the diagnosis. Any abscess will be drained. One or sometimes two antibiotics that work against MRSA will be prescribed. Home Care: 1) Take any antibiotics prescribed exactly as directed until they are gone. 2) Follow the same washing procedures as outlined for Household Members below. 3) Keep draining wounds covered with clean, dry bandages. Change dressings as they become soiled. 4) You and those in contact with you should wash their hands frequently with soap and warm water or use an alcohol-based hand retail management trainee. Do this after each time you change the bandage or touch the wound. 5) Avoid sharing personal items such as towels, washcloths, razors, clothing, or uniforms. Wash soiled sheets, towels or clothes in hot water with laundry detergent. Use an automatic clothes dryer set on high to kill any remaining bacteria. 6) Remove any artificial nails and nail micronesian. 7) If you use a gym, wipe down equipment before and after each use. Treatment Of Household Members If you have been diagnosed with possible MRSA infection, those living with you are at higher risk of carrying the bacteria on their skin or in their nose, even if there is no sign of infection. Bacteria must be removed from the skin of all household members (including you) at the same time, so that it is not passed back and forth. Advise them to remove the bacteria as follows: Wash your whole body (scalp to toes) daily for five days with Hibiclens (chlorhexidine). Scrub fingernails with a brush for one minute twice a day. If any skin infections are present (boils, abscess, infected cut) these must be treated by a doctor. Washing alone will not treat a MRSA infection. Clean counter tops and children's toys; do not share personal items such as toothbrush and razors. It is okay to share glasses, plates, utensils. If antibiotic ointment was prescribed use it as directed. Follow Up with your doctor or as advised by our staff. If a wound culture was taken, call as directed in two days to obtain the results. If the culture result is positive for MRSA, tell medical personnel in the future that you were treated for this type of infection. Get Prompt Medical Attention if any of the following occur: -- Increasing redness, swelling or pain -- Red streaks in the skin around the wound -- Weakness or dizziness -- New appearance of pus or drainage from the wound -- New fever over 100.4 F (38.0 C) You have been given the following additional information: Abscess, Incision And Drainage MRSA Skin Infection, Suspected Or Confirmed (Electronically signed by Nunu Ziegler P.A.-C 11/26/2016 20:44)
--- NOTE | 2016-11-26 21:14 | ED MED RECONCILIATION SUMMARY ---
Patient: CAMILLE OSHEA Medication Reconciliation Report [facility] VisitID: [id number] [address] [place] [address] 36y, F Registration Date/Time: 11/26/2016 Weight: 68.0 kg Height/Length: 64 in. BMI: 25.8 ALLERGIES: Compazine, Sulfa Antibiotics The patient's Home Medications are listed below: THE FOLLOWING MEDICATIONS NEED TO BE RECONCILED: Albuterol Sulfate Inhalation The source(s) of the original Home Medication information: patient The following Medications were given to the patient in the Emergency Department: DOXYCYCLINE HYCLATE [PO] PO 100 mg, administered: 11/26/2016 8:08:00 PM The following Medications were prescribed to the patient: Doxycycline 100 mg: Take 1 capsule orally every 12 hours for 10 days. No refill. -- Nunu iZegler P.AIlyaC
--- NOTE | 2016-11-26 21:14 | ED MAR SUMMARY ---
..... Medication Administration Record [facility] [address] [place] [address] Patient: CAMILLE OSHEA Visit ID: [id number] 36y, F Weight: 68.0 kg Height/Length: 64 in BMI: 25.8 ALLERGIES: Sulfa Antibiotics, Compazine Given 20:08 11/26/2016 Chele Calhoun R.N. Medication Administered: DOXYCYCLINE HYCLATE [PO], Dose: 100 mg PO. Medication Ordered: Doxycycline Hyclate PO 100 mg (NOW).
--- NOTE | 2016-11-26 21:14 | ED MED RECONCILIATION SUMMARY ---
Patient: CAMILLE OSHEA Medication Reconciliation Report [facility] VisitID: [id number] [address] [place] [address] 36y, F Registration Date/Time: 11/26/2016 Weight: 68.0 kg Height/Length: 64 in. BMI: 25.8 ALLERGIES: Compazine, Sulfa Antibiotics The patient's Home Medications are listed below: THE FOLLOWING MEDICATIONS NEED TO BE RECONCILED: Albuterol Sulfate Inhalation The source(s) of the original Home Medication information: patient The following Medications were given to the patient in the Emergency Department: DOXYCYCLINE HYCLATE [PO] PO 100 mg, administered: 11/26/2016 8:08:00 PM The following Medications were prescribed to the patient: Doxycycline 100 mg: Take 1 capsule orally every 12 hours for 10 days. No refill. -- Nunu Ziegler P.AIlyaC
--- NOTE | 2016-11-26 21:14 | ED MAR SUMMARY ---
..... Medication Administration Record [facility] [address] [place] [address] Patient: CAMILLE OSHEA Visit ID: [id number] 36y, F Weight: 68.0 kg Height/Length: 64 in BMI: 25.8 ALLERGIES: Sulfa Antibiotics, Compazine Given 20:08 11/26/2016 Chele Calhoun R.N. Medication Administered: DOXYCYCLINE HYCLATE [PO], Dose: 100 mg PO. Medication Ordered: Doxycycline Hyclate PO 100 mg (NOW).
== END 2016-11-26 20:28 | disposition home or self-care (01) ==
LOC: ED SRH 19:22
DX: L02.31 Cutaneous abscess of buttock (principal); J45.909 Unspecified asthma, uncomplicated; Z88.1 Allergy status to other antibiotic agents

== ENCOUNTER 2017-02-01 21:07 | Emergency (ER) | payer OTHER ==
--- NOTE | 2017-02-01 23:52 | ED CLINICAL REPORT ---
Clinical Report - Physicians/Mid Levels [facility] [address] [place] [address] 02/01/2017 21:08 Patient: CAMILLE OSHEA Time Seen: 21:15. Arrived- By private vehicle. Historian- patient. HISTORY OF PRESENT ILLNESS Chief Complaint: DYSURIA. This started about 1 week ago and still present and now worse. The symptoms are described as moderate. Modifying factors- worsened by intercourse and urination. Not relieved by anything. The patient has had moderate, crampy abdominal pain. The pain is described as located in the lower abdomen, lower back pain and flank pain. No pelvic pain, vaginal pain or hematuria. The patient has had pain with urination and urgency of urination. The patient has had urinary frequency. Sexually active. Denies current . Similar symptoms previously: Several times. Recent medical care: Not recently seen/assessed. REVIEW OF SYSTEMS No nausea, vomiting, diarrhea, black stools or headache. No fever, anorexia, eye discomfort, sore throat or cough. No difficulty breathing, chest pain, skin rash, enlarged lymph nodes or joint pain. The patient has had chills. All systems otherwise negative, except as recorded above. PAST HISTORY Problems: Narcotic Withdrawal. Hives. Viral Disease. Anxiety Reaction. Immunocompromised. Substance Abuse. Superficial Thrombophlebitis. Constipation. Hepatitis. Lifestyle / Substance Problems. Pelvic Inflammatory Disease. Immunizations. LNMP - Last Normal Menstrual Period. Fibromyalgia. Degenerative Joint Disease. Asthma. Abscess. Bipolar Disorder. Anxiety disorder. Additional Surgeries: Cholecystectomy. Dilatation & Curettage. Fracture Repair. Medications: Albuterol Sulfate Inhalation. Allergies: Compazine. Sulfa Antibiotics. SOCIAL HISTORY Smoker- current status unknown. History of drug use: heroin. ADDITIONAL NOTES The nursing notes have been reviewed. PHYSICAL EXAM Vital Signs: 02/01/2017 21:13 BP: 147/86. HR: 92. RR: 14. O2 saturation: 100%. Temp: 98.3 F. Pain level now: 6/10. Have been reviewed. Appearance: Alert. Oriented X3. No acute distress. HEENT: Normal external inspection. Neck: Neck supple. CVS: Heart sounds normal. Respiratory: No respiratory distress. Breath sounds normal. Abdomen: Soft and nontender. Back: Mild CVA tenderness on the right and left. Skin: Skin warm and dry. Normal skin color. No rash. Normal skin turgor. Extremities: Extremities nontender. No lower extremity edema. Neuro: Oriented X 3. Mood/affect normal. No motor deficit. No sensory deficit. LABS, X-RAYS, AND EKG Laboratory Tests: UA-Culture if indicated: (GINA: 02/01/2017 22:30) ( [facility] [place] 02/01/2017 22:57) Final results Test Result Flag Units (Reference) URINE COLOR YELLOW URINE APPEARANCE SL CLOUDY URINE GLUCOSE NEGATIVE (NEGATIVE) URINE BILIRUBIN 1+ (NEGATIVE) URINE BILIRUBIN ICTOTEST POSITIVE (NEGATIVE) URINE KETONE NEGATIVE (NEGATIVE) URINE SPECIFIC GRAVITY >= 1.030 (1.010-1.030) URINE PH 6.0 (5.0-8.0) URINE PROTEIN TRACE (NEGATIVE) URINE UROBILINOGEN 1.0 EU/dL (0.2-1.0) URINE NITRITE NEGATIVE (NEGATIVE) URINE BLOOD 1+ (NEGATIVE) URINE LEUK ESTERASE POSITIVE (NEGATIVE) URINE RBC 25-50 rbc/hpf (0-1) URINE WBC >100 wbc/hpf (0-1) URINE EPITHELIAL CELLS 1-3 EPI/hpf (0-5) CALCIUM OXALATE CRYSTAL- FEW/HPF URINE BACTERIA FEW (1+) (NONE SEEN) URINE COMMENT CULTURE INDICATED URINE CULTURES ARE SET-UP BASED ON THE FOLLOWING CRITERIA:POSITIVE NITRITEPOSITIVE LEUKOCYTE ESTERASEGREATER THAN 10 WHITE BLOOD CELLSMODERATE (2+) OR GREATER BACTERIA UA-Culture if indicated: (GINA: 02/01/2017 21:20) ( [facility] [place] 02/01/2017 22:00) Final results Test Result Flag Units (Reference) URINE COLOR BASHIR URINE APPEARANCE CLOUDY URINE GLUCOSE NEGATIVE (NEGATIVE) URINE BILIRUBIN 1+ (NEGATIVE) URINE KETONE NEGATIVE (NEGATIVE) URINE SPECIFIC GRAVITY >= 1.030 (1.010-1.030) URINE PH 6.0 (5.0-8.0) URINE PROTEIN 1+ (NEGATIVE) URINE UROBILINOGEN 1.0 EU/dL (0.2-1.0) URINE NITRITE NEGATIVE (NEGATIVE) URINE BLOOD 3+ (NEGATIVE) URINE LEUK ESTERASE POSITIVE (NEGATIVE) URINE RBC 25-50 rbc/hpf (0-1) URINE WBC >100 wbc/hpf (0-1) URINE EPITHELIAL CELLS 3-5 EPI/hpf (0-5) URINE BACTERIA FEW (1+) (NONE SEEN) CALCIUM OXALATE CRYSTALS-MANY/HPF URINE COMMENT CULTURE INDICATED URINE CULTURES ARE SET-UP BASED ON THE FOLLOWING CRITERIA:POSITIVE NITRITEPOSITIVE LEUKOCYTE ESTERASEGREATER THAN 10 WHITE BLOOD CELLSMODERATE (2+) OR GREATER BACTERIA . Pulse Oximetry: 02/01/2017 21:13 O2 saturation: 100%. (FIO2 - room air). Interpretation: normal. PROGRESS AND PROCEDURES Course of Care: Pt was started on Levaquin for her early pyelonephritis. She was also given a dose of Pyridium, at her request. Patient counseled in person regarding the patient's stable condition, test results, diagnosis and need for follow-up. Concerns were addressed. Old medical records reviewed. Disposition: Discharged. Condition: stable. CLINICAL IMPRESSION Acute pyelonephritis INSTRUCTIONS Drink plenty of fluids. Warnings: GENERAL WARNINGS: Return or contact your physician immediately if your condition worsens or changes unexpectedly, if not improving as expected, or if other problems arise. Your Current Medications: CONTINUE TAKING THE FOLLOWING MEDICATIONS: Albuterol Sulfate Inhalation. Prescription Medications: Pyridium 200 mg: take 1 orally every 8 hours as needed for urinary problems. Dispense fifteen (15). No refill. Substitution is permissible. Levaquin 500 mg: take 1 tab orally every day for 14 days. No refills. Substitution is permissible. Diflucan 150 mg tablets: initially take 1 tablet orally , then take 1 tablet orally every day for 2 days. No refill. Substitution is permissible. Follow-up: Follow up with your doctor in ten days if not better. Understanding of the discharge instructions verbalized by patient. (Electronically signed by Nessa Kirby MD 02/02/2017 4:22)
--- NOTE | 2017-02-01 23:52 | ED ORDER SUMMARY ---
..... Patient: CAMILLE OSHEA OrderSheet [facility] VisitID: [id number] [place] [address] 36y, F Registration Date/Time: 02/01/2017 ORDER SHEET Weight: 68.0 kg (stated) Allergies: Compazine, Sulfa Antibiotics GENERAL ORDERS: UA-Culture if indicated Urgent (21:15 02/01/2017 Layla EVERETT) (Ack 21:19 Kasey) (22:28 HSoule) UA-Culture if indicated Urgent (22:30 02/01/2017 Amber Calero verbal order read back to Layla EVERETT) (Ack 22:33 Kasey) (22:58 HSoule) MEDICATION ORDERS: Levaquin PO 500 mg (NOW) (23:20 02/01/2017 Layla EVERETT) (Ack 23:29 HSoule) (23:36 HSoule) Pyridium PO 200 mg (NOW) (23:45 02/01/2017 Layla EVERETT) (Ack 23:58 HSoule) (0:04 HSoule) IV FLUIDS: ORDER SHEET NOTES: [Electronically signed by Ana Fuentes (02:06 02/02/2017)] [Electronically signed by Nessa Kirby MD (04:22 02/02/2017)] [Electronically locked/signed by Ana Fuentes (02:06 02/02/2017)]
--- NOTE | 2017-02-01 23:52 | ED ORDER SUMMARY ---
..... Patient: CAMILLE OSHEA OrderSheet [facility] VisitID: [id number] [place] [address] 36y, F Registration Date/Time: 02/01/2017 ORDER SHEET Weight: 68.0 kg (stated) Allergies: Compazine, Sulfa Antibiotics GENERAL ORDERS: UA-Culture if indicated Urgent (21:15 02/01/2017 Layla EVERETT) (Ack 21:19 Kasey) (22:28 HSoule) UA-Culture if indicated Urgent (22:30 02/01/2017 Amber Calero verbal order read back to Layla EVERETT) (Ack 22:33 Kasey) (22:58 HSoule) MEDICATION ORDERS: Levaquin PO 500 mg (NOW) (23:20 02/01/2017 Layla EVERETT) (Ack 23:29 HSoule) (23:36 HSoule) Pyridium PO 200 mg (NOW) (23:45 02/01/2017 Layla EVERETT) (Ack 23:58 HSoule) (0:04 HSoule) IV FLUIDS: ORDER SHEET NOTES: [Electronically signed by Ana Fuentes (02:06 02/02/2017)] [Electronically signed by Nessa Kirby MD (04:22 02/02/2017)] [Electronically locked/signed by Ana Fuentes (02:06 02/02/2017)]
--- NOTE | 2017-02-01 23:52 | ED NURSING NOTES ---
Clinical Report - Nurses [facility] [address] [place] [address] 02/01/2017 21:08 Patient: CAMILLE OSHEA TRIAGE Triage time 2125 PM. Acuity: LEVEL 4. Chief Complaint: PELVIC PAIN and PAINFUL URINATION, URGENCY and FREQUENCY. Alert. No acute distress. SEPSIS SCREEN: Sepsis Screen. Negative (no infection suspected/documented). --21:34 Mamta Turner R.N. 21:13 02/01/17. BP: 147/86. HR: 92. RR: 14. O2 saturation: 100%. Temp: 98.3 F (oral). Pain level now: 04/14. --21:34 Mamta Turner R.N. Weight: 68 kg stated. Height/Length: 64 inches Per Patient. BMI: 25.8. --21:26 Mamta Turner R.N. Medications Albuterol Sulfate Inhalation. --21:29 Mamta Turner R.N. Allergies Compazine. Sulfa Antibiotics. --21:29 Mamta Turner R.N. Medication/allergy information source: the patient. --21:34 Mamta Turner R.N. History Arrived by private vehicle. Historian: patient. Accompanied by friend. Primary physician (none). ( Pt states having a hx of UTI, feels like she has one for the past 1 week with vomiting, pelvic pain, blood in urine. Pt also states feeling like she has an abscess/ hurts on right elbow due to heroin use.). Onset. (1 week). She has had fever, abdominal pain, hematuria and flank pain. No abnormal bleeding. Treatment BULWARK CARPENTER: (keflex). PAST MEDICAL HX: Immunizations: up-to-date. Sexual history - sexually active. Uses depo implants. SOCIAL HX: Former smoker (cigarette)- less than 1/2 a pack per day. History of drug use: heroin. Recently used drugs just prior to arrival and today. No alcohol use. No infectious disease exposure. ABUSE ASSESSMENT: No report of abuse. SELF HARM ASSESSMENT: A self harm assessment was performed. The patient answered "no" to the question "Do you have thoughts of harming or killing yourself?" and "Have you recently had thoughts about harming or killing others?". FALL RISK ASSESSMENT: Fall risk assessment completed. No fall risk identified. NUTRITIONAL RISK ASSESSMENT: The nutritional risk assessment revealed no deficiencies. FUNCTIONAL ASSESSMENT: Functional assessment: no impairments noted. LEARNING NEEDS ASSESSMENT: The learning needs assessment revealed no barriers. SKIN INTEGRITY ASSESSMENT: Skin integrity risk assessment completed. No skin integrity risk identified. --21:34 Mamta Turner R.N. PROBLEMS: Narcotic Withdrawal. Hives. Bronchitis. Atypical Chest Pain. URI. Viral Disease. Anxiety Reaction. Immunocompromised. Cellulitis. Substance Abuse. Superficial Thrombophlebitis. Constipation. Hepatitis. Gastroenteritis. Lifestyle / Substance Problems. Diarrhea. Abdominal Pain. Abd pain. Pelvic Inflammatory Disease. Immunizations. LNMP - Last Normal Menstrual Period. Fibromyalgia. Degenerative Joint Disease. Asthma. Abscess. Bipolar Disorder. Anxiety disorder. Liver enzymes abnormal. --21:29 Mamta Turner R.N. Pleurisy [RuleOut]. --21:29 Mamta Turner R.N. ADDITIONAL SURGERIES: Cholecystectomy. Dilatation & Curettage. Fracture Repair. --21:29 Mamta Turner R.N. Interventions ID band on patient. --21:34 Mamta Turner R.N. PHYSICAL ASSESSMENT Ambulatory to room. GENERAL / NEURO / PSYCH: Alert. Oriented X 4. Appears in no acute distress. HEENT: Mucous membranes are pink. RESPIRATORY: Respirations not labored. Breath sounds within normal limits. CVS: Capillary refill less than 2 seconds. GI / : Abdomen soft. Bowel sounds within normal limits. Vaginal bleeding. SKIN: Skin is warm and dry. --21:34 Mamta Turner R.N. NURSING PROGRESS NOTES The initial plan of care for this patient has been created This plan of care was discussed with the patient. Patient gowned. Warming measures: blanket applied. Reassurance given. Two patient identifiers checked. Call light placed in reach. Side rails up x 1. Bed placed in lowest position. Brakes of bed on. Patient ready for evaluation- chart flagged. --21:35 Turner, Mamta, R.N. Reassurance given. The patient is calm. Overall patient status is the same- she states feels the same. ( waiting on another UA, water given, VSS.). GI / : Denies nausea or diarrhea. Call light placed in reach. Side rails up x 1. Care transferred and report given (ROSANNE Perez). --22:20 Mamta Turner R.N. 22:19 02/01/17. BP: 129/77 (regular adult cuff) taken on the left arm, via an automated monitor, while lying. HR: 76. RR: 14. O2 saturation: 100% on room air. Temp: 97.8 F (oral). Pain level now: 05/14. Additional comments: arm . --22:20 Mamta Turner R.N. Patient ID band checked for patient name and birthdate: patient confirmed. Instructions provided to collect clean catch urine and patient verbalized understanding. Clean catch urine collected with return of lulu-colored clear urine; sample sent to lab for urinalysis, culture and drug screen. --22:28 Ana Fuentes 23:36 02/01/2017 Levaquin (Levofloxacin) PO Tablets 500 mg given. Allergies verified and confirmed 5 rights. --23:36 Ana Fuentes 23:36 02/01/17. BP: 128/86. HR: 95. RR: 20. O2 saturation: 98% on room air. --23:36 Ana Fuentes 00:04 02/02/2017 Pyridium (Phenazopyridine HCl) PO Tablets 200 mg given. Allergies verified and confirmed 5 rights. --00:04 Ana Fuentes. DISPOSITION / DISCHARGE 00:05 02/02/17. Condition at departure: stable. The goals identified in the patient's plan of care were met. No learning barriers present. Discharge instructions provided and reviewed with the patient. Reviewed medication(s) side effects, precautions, dosing and course information. Prescription(s) given to the patient. Reviewed need for increased fluid intake. Patient verbalized understanding. Written instructions provided in Kyrgyz. ( Increase fluids. Follow up with provider in ten days if needed. Take antibiotics as prescribed. Seek medical attention if symptoms worsen.). The patient was discharged by the physician. She was discharged home and accompanied by wood stainer. She left the Emergency Department ambulatory and via private vehicle. Security Operations Analyst driving. FALL RISK ASSESSMENT: Fall risk assessment completed. No fall risk identified. --02:05 Ana Fuentes 00:05 02/02/17. BP: 142/84. HR: 96. RR: 20. O2 saturation: 98% on room air. Temp: 98.2 F (oral). Pain level now: 05/14. --02:05 Ana Fuentes. Locked/Released at 02/02/2017 2:06 by Ana Fuentes,
--- NOTE | 2017-02-02 04:22 | ED DISCHARGE INSTRUCTIONS ---
Patient: CAMILLE OSHEA General Instructions [facility] VisitID: [id number] [place] [address] 36y, F Registration Date/Time: 02/01/2017 Acute pyelonephritis INSTRUCTIONS Drink plenty of fluids. Warnings: GENERAL WARNINGS: Return or contact your physician immediately if your condition worsens or changes unexpectedly, if not improving as expected, or if other problems arise. Your Current Medications: CONTINUE TAKING THE FOLLOWING MEDICATIONS: Albuterol Sulfate Inhalation. Prescription Medications: Pyridium 200 mg: take 1 orally every 8 hours as needed for urinary problems. Dispense fifteen (15). No refill. Substitution is permissible. Levaquin 500 mg: take 1 tab orally every day for 14 days. No refills. Substitution is permissible. Diflucan 150 mg tablets: initially take 1 tablet orally , then take 1 tablet orally every day for 2 days. No refill. Substitution is permissible. Follow-up: Follow up with your doctor in ten days if not better. Understanding of the discharge instructions verbalized by patient. ADDITIONAL INFORMATION Kidney Infection [Adult, Female] An infection of the kidney is also called "pyelonephritis". It usually starts as a bladder infection ("cystitis") which spreads to the kidneys. Pyelonephritis is more serious than a bladder infection. It can cause severe illness if not treated properly. The usual symptoms include an aching pain in the back, side or lower abdomen. Other symptoms may include fever, chills, nausea, vomiting, an urge to urinate and a burning sensation when passing urine. Home Care: Stay home from work or school. Rest in bed until your fever breaks and you are feeling better. Drink lots of fluid (at least 6-8 glasses a day, unless you must restrict fluids for other medical reasons). This will force the medicine into your urinary system and flush the bacteria out of your body. Avoid sexual intercourse until you have finished all of your medicine and your symptoms have gone away. Avoid caffeine, alcohol and spicy foods which may irritate the kidney and bladder. You may use acetaminophen (Tylenol) or ibuprofen (Motrin, Advil) to control pain, unless another pain medicine was prescribed. [NOTE: If you have chronic liver or kidney disease or ever had a stomach ulcer or GI bleeding, talk with your doctor before using these medicines.] Follow Up with your doctor or as advised by our staff for a repeat urine test in 10 days. This will ensure that your infection is fully cleared. [NOTE: If you had an X-ray or CT scan, it will be reviewed by a specialist. You will be notified of any new findings that may affect your care.] Get Prompt Medical Attention if any of the following occur: Fever over 100.4F (38.0C) after 48 hours of treatment No improvement by the third day of treatment Increasing back or abdominal pain Repeated vomiting or inability to take oral medicine Weakness, dizziness or fainting You have been given the following additional information: Pyelonephritis, Female (Adult) (Electronically signed by Nessa Kirby MD 02/02/2017 4:22)
--- NOTE | 2017-02-02 04:22 | ED MED RECONCILIATION SUMMARY ---
Patient: CAMILLE OSHEA Medication Reconciliation Report [facility] VisitID: [id number] [address] [place] [address] 36y, F Registration Date/Time: 02/01/2017 Weight: 68.0 kg Height/Length: 64 in. BMI: 25.8 ALLERGIES: Compazine, Sulfa Antibiotics The patient's Home Medications are listed below: CONTINUE TAKING THE FOLLOWING MEDICATIONS: Albuterol Sulfate Inhalation The source(s) of the original Home Medication information: patient The following Medications were given to the patient in the Emergency Department: Levaquin [PO] PO 500 mg, administered: 02/01/2017 11:36:00 PM Pyridium [PO] PO 200 mg, administered: 02/02/2017 12:04:00 AM The following Medications were prescribed to the patient: Pyridium 200 mg: take 1 orally every 8 hours as needed for urinary problems. Dispense fifteen (15). No refill. Substitution is permissible. -- Nessa Kirby MD Levaquin 500 mg: take 1 tab orally every day for 14 days. No refills. Substitution is permissible. -- Nessa Kirby MD Diflucan 150 mg tablets: initially take 1 tablet orally , then take 1 tablet orally every day for 2 days. No refill. Substitution is permissible. -- Nessa Kirby MD
--- NOTE | 2017-02-02 04:22 | ED MAR SUMMARY ---
..... Medication Administration Record [facility] [address] [place] [address] Patient: CAMILLE OSHEA Visit ID: [id number] 36y, F Weight: 68.0 kg Height/Length: 64 in BMI: 25.8 ALLERGIES: Compazine, Sulfa Antibiotics Given 23:36 02/01/2017 Ana Fuentes, Medication Administered: LEVAQUIN [PO] (LEVOFLOXACIN), Dose: 500 mg Tablets PO. Medication Ordered: Levaquin PO 500 mg (NOW). Given 00:04 02/02/2017 Ana Fuentes, Medication Administered: PYRIDIUM [PO] (PHENAZOPYRIDINE HCL), Dose: 200 mg Tablets PO. Medication Ordered: Pyridium PO 200 mg (NOW).
--- NOTE | 2017-02-02 04:22 | ED MAR SUMMARY ---
..... Medication Administration Record [facility] [address] [place] [address] Patient: CAMILLE OSHEA Visit ID: [id number] 36y, F Weight: 68.0 kg Height/Length: 64 in BMI: 25.8 ALLERGIES: Compazine, Sulfa Antibiotics Given 23:36 02/01/2017 Ana Fuentes, Medication Administered: LEVAQUIN [PO] (LEVOFLOXACIN), Dose: 500 mg Tablets PO. Medication Ordered: Levaquin PO 500 mg (NOW). Given 00:04 02/02/2017 Ana Fuentes, Medication Administered: PYRIDIUM [PO] (PHENAZOPYRIDINE HCL), Dose: 200 mg Tablets PO. Medication Ordered: Pyridium PO 200 mg (NOW).
--- NOTE | 2017-02-02 04:22 | ED MED RECONCILIATION SUMMARY ---
Patient: CAMILLE OSHEA Medication Reconciliation Report [facility] VisitID: [id number] [address] [place] [address] 36y, F Registration Date/Time: 02/01/2017 Weight: 68.0 kg Height/Length: 64 in. BMI: 25.8 ALLERGIES: Compazine, Sulfa Antibiotics The patient's Home Medications are listed below: CONTINUE TAKING THE FOLLOWING MEDICATIONS: Albuterol Sulfate Inhalation The source(s) of the original Home Medication information: patient The following Medications were given to the patient in the Emergency Department: Levaquin [PO] PO 500 mg, administered: 02/01/2017 11:36:00 PM Pyridium [PO] PO 200 mg, administered: 02/02/2017 12:04:00 AM The following Medications were prescribed to the patient: Pyridium 200 mg: take 1 orally every 8 hours as needed for urinary problems. Dispense fifteen (15). No refill. Substitution is permissible. -- Nessa Kirby MD Levaquin 500 mg: take 1 tab orally every day for 14 days. No refills. Substitution is permissible. -- Nessa Kirby MD Diflucan 150 mg tablets: initially take 1 tablet orally , then take 1 tablet orally every day for 2 days. No refill. Substitution is permissible. -- Nessa Kirby MD
== END 2017-02-02 00:05 | disposition home or self-care (01) ==
LOC: ED SRH 21:07
DX: N10 Acute pyelonephritis (principal); Z79.51 Long term (current) use of inhaled steroids; Z88.8 Allergy status to other drugs, medicaments and biological substances; Z88.5 Allergy status to narcotic agent
CPT/HCPCS: 90004; 90469

== ENCOUNTER 2017-02-06 03:04 | Emergency (ER) | payer OTHER ==
--- NOTE | 2017-02-06 08:01 | ED CLINICAL REPORT ---
Clinical Report - Physicians/Mid Levels [facility] [address] [place] [address] 02/06/2017 3:04 Patient: CAMILLE OSHEA Time Seen: 04:16. Arrived- By private vehicle. Historian- patient. HISTORY OF PRESENT ILLNESS Chief Complaint: Dysuria and Vulvar itching. This started several days ago; Ms Wadsworth notes dysuria, not frequency. She also notes vulvar itching which bagan following a period of fairly frequent sexual activity .This followed a treatment on 02/01 for UTI, pyelonephritis which is documented below. It is described as located in the suprapubic area. At its maximum, severity described as mild. When seen in the E.D., severity described as mild. No nausea, vomiting or diarrhea. Similar symptoms previously: Recent medical care: The patient was seen recently by a health care provider. ( For UTI Rx Lavaquin and diflucan. Culture was negative for pathogens.). REVIEW OF SYSTEMS Sexual history - sexually active and engages in unprotected sex. No contraception. She has had pain on urination. No urinary frequency, fever, sore throat, chest pain or difficulty breathing. No cough, skin rash or back pain. PAST HISTORY PCP: Dr PATEL PAST HISTORY Problems: Narcotic Withdrawal. Hives. Viral Disease. Anxiety Reaction. Immunocompromised. Substance Abuse. Superficial Thrombophlebitis. Constipation. Hepatitis. Lifestyle / Substance Problems. Pelvic Inflammatory Disease. Immunizations. Fibromyalgia. Degenerative Joint Disease. Asthma. Abscess. Bipolar Disorder. Anxiety disorder. Additional Surgeries: Cholecystectomy. Dilatation & Curettage. Fracture Repair. Medications: Albuterol Sulfate Inhalation. SOCIAL HISTORY History of drug use: heroin. ADDITIONAL NOTES The nursing notes have been reviewed. PHYSICAL EXAM Vital Signs: 02/06/2017 08:10 BP: 118/70. HR: 90. RR: 16. O2 saturation: 99%. Temp: 98.1 F. 02/06/2017 07:18 BP: 135/79. HR: 90. RR: 16. O2 saturation: 100%. 02/06/2017 06:27 BP: 130/86. HR: 92. RR: 16. O2 saturation: 97%. Temp: 98.5 F. Pain level now: 5/10. 02/06/2017 03:14 BP: 132/79. HR: 105. RR: 18. O2 saturation: 100%. Temp: 98.1 F. Pain level now: 5/10. Appearance: Alert. No acute distress. Eyes: No scleral icterus. ENT: Pharynx normal. CVS: Normal heart rate and rhythm. Heart sounds normal. Respiratory: No respiratory distress. Breath sounds normal. Abdomen: Soft and nontender. : Normal external exam. Speculum exam normal. Bimanual exam normal. LABS, X-RAYS, AND EKG Laboratory Tests: UA-Culture if indicated: (GINA: 02/06/2017 04:45) ( MsgRcvd 02/06/2017 05:02) Final results Test Result Flag Units (Reference) URINE COLOR ORANGE URINE APPEARANCE CLEAR URINE GLUCOSE TRACE (NEGATIVE) URINE GLUCOSE CLINITEST NEGATIVE % (NEGATIVE) URINE BILIRUBIN 1+ (NEGATIVE) URINE KETONE TRACE (NEGATIVE) URINE SPECIFIC GRAVITY 1.020 (1.010-1.030) URINE PH 7.0 (5.0-8.0) URINE PROTEIN 1+ (NEGATIVE) URINE UROBILINOGEN 4.0 EU/dL (0.2-1.0) The urobilinogen reagent area may react with interferingsubstances known to react with Mukul's reagent such asp-aminosalicylic acid and sulfonamides. Atypical colorreactions may be obtained in the presence of highconcentrations of p-aminobenzoic acid. The absence ofurobilinogen cannot be determined with this test. URINE NITRITE POSITIVE (NEGATIVE) URINE BLOOD NEGATIVE (NEGATIVE) URINE LEUK ESTERASE TRACE (NEGATIVE) URINE RBC 0-1 rbc/hpf (0-1) URINE WBC 0-1 wbc/hpf (0-1) URINE EPITHELIAL CELLS 0-1 EPI/hpf (0-5) URINE BACTERIA FEW (1+) (NONE SEEN) URINE COMMENT CULTURE INDICATED URINE CULTURES ARE SET-UP BASED ON THE FOLLOWING CRITERIA:POSITIVE NITRITEPOSITIVE LEUKOCYTE ESTERASEGREATER THAN 10 WHITE BLOOD CELLSMODERATE (2+) OR GREATER BACTERIA Urine: (GINA: 02/06/2017 04:45) ( MsgRcvd 02/06/2017 07:53) Final results Test Result Flag Units (Reference) URINE NEGATIVE Wet Prep: (GINA: 02/06/2017 06:20) ( MsgRcvd 02/06/2017 06:44) Final results SPECIMEN DESCRIPTION: SWAB Test Result Flag Units (Reference) WET MOUNT CLUE CELLS:: FEW * EPITHELIAL CELLS: MANY -- SOURCE?: CERVIX WHITE BLOOD CELLS: FEW TRICHOMONAS:: FEW * -- YEAST:: NONE . PROGRESS AND PROCEDURES Course of Care: BEST PHONE NUMBER IS [phone] Pt has clue cells and trichomonas. Will treat appropriately with flagyl. Have tested for GC/Chlaymidia, results are pending. Disposition: Discharged. Condition: stable. CLINICAL IMPRESSION Acute trichomonas vaginitis INSTRUCTIONS (NO UTI NO YEAST INFECTION YES TRICHAMONIS VAGINITIS NO ALCOHOL WITH FLAGYL THE GC AND CHLAMADIA TESTS ARE PENDING.). Prescription Medications: Flagyl 500 mg: Take 1 tablet orally every 12 hours for 7 days. No refill. Substitution is permissible. (Electronically signed by Mike Bartlett MD 02/07/2017 10:54)
--- NOTE | 2017-02-06 08:01 | ED ORDER SUMMARY ---
..... Patient: CAMILLE OSHEA OrderSheet [facility] VisitID: [id number] [place] [address] 36y, F Registration Date/Time: 02/06/2017 ORDER SHEET Weight: 68.0 kg Allergies: Compazine, Sulfa Antibiotics GENERAL ORDERS: - (CATH UA) (04:18 02/06/2017 Cameron EVERETT) (4:48 EInderbitzen R.N.) (Cancelled: Patient Refusal4:48 EInderbitzen R.N.) UA-Culture if indicated Urgent (04:18 02/06/2017 Cameron EVERETT) (Ack 4:22 Therese) (4:48 EInderbitzen R.N.) Pelvic Exam Setup (06:00 02/06/2017 Cameron EVERETT) (6:03 EInderbitzen R.N.) Wet Prep (Cervix) (swab) Urgent (06:22 02/06/2017 Cameron EVERETT) (Ack 6:24 Therese) GC/Chlamydia (Cervix) (swab) Urgent (06:22 02/06/2017 Cameron EVERETT) (Ack 6:24 Therese) Urine Urgent (07:29 02/06/2017 Cameorn EVERETT) (Ack 7:46 Albertina) MEDICATION ORDERS: IV FLUIDS: ORDER SHEET NOTES: [Electronically signed by Stephanie Sood R.N. (08:15 02/06/2017)] [Electronically signed by Mike Bartlett MD (10:54 02/07/2017)] [Electronically locked/signed by Stephanie Sood R.N. (08:15 02/06/2017)]
--- NOTE | 2017-02-06 08:01 | ED NURSING NOTES ---
Clinical Report - Nurses [facility] [address] [place] [address] 02/06/2017 3:04 [id number] Triage time 03:14 Feb 06 2017. Acuity: LEVEL 4. Chief Complaint: (dysuria). 03:18 02/06/17. SEPSIS SCREEN: Sepsis Screen. Negative (no infection suspected/documented). --03:18 Jacy Aguayo R.N. 03:14 02/06/17. BP: 132/79. HR: 105. RR: 18. O2 saturation: 100%. Temp: 98.1 F. Pain level now: 03/14. --03:18 Jacy Aguayo R.N. Weight: 68 kg. Height/Length: 64 inches. BMI: 25.8. --03:13 Jacy Aguayo R.N. Medications Albuterol Sulfate Inhalation. --08:15 Stephanie Sood R.N. Medication/allergy information source: the patient. --03:18 Jacy Aguayo R.N. Allergies Compazine. Sulfa Antibiotics. --08:15 Stephanie Sood R.N. History Arrived by private vehicle. Historian: patient. Accompanied by family. This is a recurrent problem. ( was treated in the ER here on 02/01 for uti, given levofloxacin and diflucan. states not feeling any better). No fever. SOCIAL HX: Heavy tobacco smoker (cigarette)- 1 pack per day. History of drug use: heroin. Recently used drugs just prior to arrival. No alcohol use. No infectious disease exposure. ABUSE ASSESSMENT: No report of abuse. NUTRITIONAL RISK ASSESSMENT: The nutritional risk assessment revealed no deficiencies. FUNCTIONAL ASSESSMENT: Functional assessment: no impairments noted. LEARNING NEEDS ASSESSMENT: The learning needs assessment revealed no barriers. SKIN INTEGRITY ASSESSMENT: Skin integrity risk assessment completed. No skin integrity risk identified. --03:18 Jacy Aguayo R.N. Interventions ID band on patient. --03:18 Jacy Aguayo R.N. PHYSICAL ASSESSMENT 03:27 02/06/17. Ambulatory to room. GENERAL / NEURO / PSYCH: Alert. Oriented X 4. HEENT: Pupils equal, round and reactive to light. Mucous membranes are pink. RESPIRATORY: Breath sounds within normal limits. CVS: Pulses within normal limits. GI / : ( dysuria, hematuria). Abdomen soft. SKIN: Skin is warm and dry. ( extensive needle track cowan on arms, hands, and neck, rash also present on arms.). --03:27 Jacy Aguayo R.N. NURSING PROGRESS NOTES 03:23 02/06/17. Two patient identifiers checked. Side rails up x 1. Bed placed in lowest position. Brakes of bed on. Patient ready for evaluation. --03:23 Jacy Aguayo R.N. 04:43 02/06/17. In/out catheterization. During procedure hand hygiene observed and sterile equipment and aseptic technique used. Attempted placement unsuccessful. --04:43 Jayc Aguayo R.N. 06:20 02/06/17. PELVIC EXAM: Pelvic exam performed by ED physician. Assisted by one nurse. Preparation: pelvic tray; patient placed in lithotomy position. Procedure: speculum and bimanual exam. Moderately tender genital lesions noted. Moderate amount of white and bloody vaginal discharge noted. Specimens collected and sent to lab: GC, chlamydia and wet prep. Status post-procedure: she was stable. Total time of assist / procedure: 15 minutes. --06:27 Jacy Aguayo R.N. 07:10 02/06/17. Care transferred and report given (to ROSANNE Brown). --07:10 Jacy Aguayo R.N. Care transferred and report received (from Jacy Meyer RN). --07:13 Stephanie Sood R.N. The patient reports no complaints and she is resting quietly. ( First contact with pt.). --07:19 Stephanie Sood R.N. 07:18 02/06/17. BP: 135/79. HR: 90. RR: 16. O2 saturation: 100%. Pain level now 05/14. --07:19 Stephanie Sood R.N. DISPOSITION / DISCHARGE 08:10. Departure time: 709. Condition at departure: stable. No learning barriers present. Discharge instructions provided and reviewed with the patient. Reviewed medication(s) side effects, precautions, dosing and course information. Prescription(s) given to the patient. Reviewed referral to family practice for followup. Patient verbalized understanding. Written instructions provided in Ivorian. The patient was discharged home and accompanied by recovery analyst. She left the Emergency Department ambulatory and via private vehicle. Truck Service Manager driving. Medication list reviewed and validated. --08:14 Stephanie Sood R.N. 08:12 02/06/17. BP: 118/70. HR: 90. RR: 16. O2 saturation: 99%. Temp: 98.1 F. Pain level now 03/14. --08:14 Stephanie Sood R.N. Locked/Released at 02/06/2017 8:15 by Stephanie Sood R.N.
--- NOTE | 2017-02-06 08:01 | ED NURSING NOTES ---
Clinical Report - Nurses [facility] [address] [place] [address] 02/06/2017 3:04 [id number] Triage time 03:14 Feb 06 2017. Acuity: LEVEL 4. Chief Complaint: (dysuria). 03:18 02/06/17. SEPSIS SCREEN: Sepsis Screen. Negative (no infection suspected/documented). --03:18 Jacy Aguayo R.N. 03:14 02/06/17. BP: 132/79. HR: 105. RR: 18. O2 saturation: 100%. Temp: 98.1 F. Pain level now: 03/14. --03:18 Jacy Aguayo R.N. Weight: 68 kg. Height/Length: 64 inches. BMI: 25.8. --03:13 Jacy Aguayo R.N. Medications Albuterol Sulfate Inhalation. --08:15 Stephanie Sood R.N. Medication/allergy information source: the patient. --03:18 Jacy Aguayo R.N. Allergies Compazine. Sulfa Antibiotics. --08:15 Stephanie Sood R.N. History Arrived by private vehicle. Historian: patient. Accompanied by family. This is a recurrent problem. ( was treated in the ER here on 02/01 for uti, given levofloxacin and diflucan. states not feeling any better). No fever. SOCIAL HX: Heavy tobacco smoker (cigarette)- 1 pack per day. History of drug use: heroin. Recently used drugs just prior to arrival. No alcohol use. No infectious disease exposure. ABUSE ASSESSMENT: No report of abuse. NUTRITIONAL RISK ASSESSMENT: The nutritional risk assessment revealed no deficiencies. FUNCTIONAL ASSESSMENT: Functional assessment: no impairments noted. LEARNING NEEDS ASSESSMENT: The learning needs assessment revealed no barriers. SKIN INTEGRITY ASSESSMENT: Skin integrity risk assessment completed. No skin integrity risk identified. --03:18 Jacy Aguayo R.N. Interventions ID band on patient. --03:18 Jacy Aguayo R.N. PHYSICAL ASSESSMENT 03:27 02/06/17. Ambulatory to room. GENERAL / NEURO / PSYCH: Alert. Oriented X 4. HEENT: Pupils equal, round and reactive to light. Mucous membranes are pink. RESPIRATORY: Breath sounds within normal limits. CVS: Pulses within normal limits. GI / : ( dysuria, hematuria). Abdomen soft. SKIN: Skin is warm and dry. ( extensive needle track cowan on arms, hands, and neck, rash also present on arms.). --03:27 Jacy Aguayo R.N. NURSING PROGRESS NOTES 03:23 02/06/17. Two patient identifiers checked. Side rails up x 1. Bed placed in lowest position. Brakes of bed on. Patient ready for evaluation. --03:23 Jacy Aguayo R.N. 04:43 02/06/17. In/out catheterization. During procedure hand hygiene observed and sterile equipment and aseptic technique used. Attempted placement unsuccessful. --04:43 Jacy Aguayo R.N. 06:20 02/06/17. PELVIC EXAM: Pelvic exam performed by ED physician. Assisted by one nurse. Preparation: pelvic tray; patient placed in lithotomy position. Procedure: speculum and bimanual exam. Moderately tender genital lesions noted. Moderate amount of white and bloody vaginal discharge noted. Specimens collected and sent to lab: GC, chlamydia and wet prep. Status post-procedure: she was stable. Total time of assist / procedure: 15 minutes. --06:27 Jacy Aguayo R.N. 07:10 02/06/17. Care transferred and report given (to ROSANNE Brown). --07:10 Jacy Aguayo R.N. Care transferred and report received (from Jacy Meyer RN). --07:13 Stephanie Sood R.N. The patient reports no complaints and she is resting quietly. ( First contact with pt.). --07:19 Stephanie Sood R.N. 07:18 02/06/17. BP: 135/79. HR: 90. RR: 16. O2 saturation: 100%. Pain level now 05/14. --07:19 Stephanie Sood R.N. DISPOSITION / DISCHARGE 08:10. Departure time: 709. Condition at departure: stable. No learning barriers present. Discharge instructions provided and reviewed with the patient. Reviewed medication(s) side effects, precautions, dosing and course information. Prescription(s) given to the patient. Reviewed referral to family practice for followup. Patient verbalized understanding. Written instructions provided in Tongan. The patient was discharged home and accompanied by domestic helper. She left the Emergency Department ambulatory and via private vehicle. Cash Register Balancer driving. Medication list reviewed and validated. --08:14 Stephanie Sood R.N. 08:12 02/06/17. BP: 118/70. HR: 90. RR: 16. O2 saturation: 99%. Temp: 98.1 F. Pain level now 03/14. --08:14 Stephanie Sood R.N. Locked/Released at 02/06/2017 8:15 by Stephanie Sood R.N.
--- NOTE | 2017-02-06 08:01 | ED ORDER SUMMARY ---
..... Patient: CAMILLE OSHEA OrderSheet [facility] VisitID: [id number] [place] [address] 36y, F Registration Date/Time: 02/06/2017 ORDER SHEET Weight: 68.0 kg Allergies: Compazine, Sulfa Antibiotics GENERAL ORDERS: - (CATH UA) (04:18 02/06/2017 Cameron EVERETT) (4:48 EInderbitzen R.N.) (Cancelled: Patient Refusal4:48 EInderbitzen R.N.) UA-Culture if indicated Urgent (04:18 02/06/2017 Cameron EVERETT) (Ack 4:22 Therese) (4:48 EInderbitzen R.N.) Pelvic Exam Setup (06:00 02/06/2017 Cameron EVERETT) (6:03 EInderbitzen R.N.) Wet Prep (Cervix) (swab) Urgent (06:22 02/06/2017 Cameron EVERETT) (Ack 6:24 Therese) GC/Chlamydia (Cervix) (swab) Urgent (06:22 02/06/2017 Cameron EVERETT) (Ack 6:24 Therese) Urine Urgent (07:29 02/06/2017 Cameron EVERETT) (Ack 7:46 Albertina) MEDICATION ORDERS: IV FLUIDS: ORDER SHEET NOTES: [Electronically signed by Stephanie Sood R.N. (08:15 02/06/2017)] [Electronically signed by Mike Bartlett MD (10:54 02/07/2017)] [Electronically locked/signed by Stephanie Sood R.N. (08:15 02/06/2017)]
--- NOTE | 2017-02-07 10:54 | ED DISCHARGE INSTRUCTIONS ---
Patient: CAMILLE OSHEA General Instructions [facility] VisitID: [id number] [place] [address] 36y, F Registration Date/Time: 02/06/2017 Acute trichomonas vaginitis INSTRUCTIONS (NO UTI NO YEAST INFECTION YES TRICHAMONIS VAGINITIS NO ALCOHOL WITH FLAGYL THE GC AND CHLAMADIA TESTS ARE PENDING.). Prescription Medications: Flagyl 500 mg: Take 1 tablet orally every 12 hours for 7 days. No refill. Substitution is permissible. ADDITIONAL INFORMATION Trichomonas Vaginal Infection Trichomonas is an infection of the vagina. It may be passed by sexual intercourse. This causes a watery vaginal discharge, vaginal itching and discomfort. It may also cause burning with urination. Men may carry and pass this infection without having any symptoms. Home Care: Your sexual partner needs to be treated even if he has no symptoms. He should contact his own doctor or go to the Public Health Department to be examined and treated. Avoid having sex until both you and your partner have finished all antibiotic medicine and all symptoms have gone away. Take all medicine as directed until it is gone. If you dont do this, symptoms may return. Keep the genital area clean and free of discharge by wearing an absorbent sanitary pad. Change the pad often. Shower daily, cleaning the outer vaginal area with plain soap and water. Do not douche during treatment unless advised to do so by your doctor. Routine douching after treatment is no longer recommended to clean the vagina. It raises your risk of vaginal infection and pelvic inflammatory disease. Wear cotton underwear or cotton-lined panty hose. Avoid tight-fitting pants. Follow Up with your doctor if symptoms dont go away after the medicine is finished. Get Prompt Medical Attention If Any Of The Following Occur: Fever of 100.4F (38C) or higher, or as directed by your healthcare provider Lower abdominal pain Rash or joint pain Open sores around the vagina or penis You have been given the following additional information: Vaginitis, Trichomonas (Electronically signed by Mike Bartlett MD 02/07/2017 10:54)
--- NOTE | 2017-02-07 10:54 | ED MAR SUMMARY ---
..... Medication Administration Record [facility] [address], [place] [id number] Patient: CAMILLE OSHEA Visit ID: [id number] 36y, F Weight: 68.0 kg Height/Length: 64 in BMI: 25.8 ALLERGIES: Compazine, Sulfa Antibiotics
--- NOTE | 2017-02-07 10:54 | ED MAR SUMMARY ---
..... Medication Administration Record [facility] [address] [place], [place] [id number] Patient: CAMILLE OSHEA Visit ID: [id number] 36y, F Weight: 68.0 kg Height/Length: 64 in BMI: 25.8 ALLERGIES: Compazine, Sulfa Antibiotics
--- NOTE | 2017-02-07 10:54 | ED DISCHARGE INSTRUCTIONS ---
Patient: CAMILLE OSHEA General Instructions [facility] VisitID: [id number] [place] [address] 36y, F Registration Date/Time: 02/06/2017 Acute trichomonas vaginitis INSTRUCTIONS (NO UTI NO YEAST INFECTION YES TRICHAMONIS VAGINITIS NO ALCOHOL WITH FLAGYL THE GC AND CHLAMADIA TESTS ARE PENDING.). Prescription Medications: Flagyl 500 mg: Take 1 tablet orally every 12 hours for 7 days. No refill. Substitution is permissible. ADDITIONAL INFORMATION Trichomonas Vaginal Infection Trichomonas is an infection of the vagina. It may be passed by sexual intercourse. This causes a watery vaginal discharge, vaginal itching and discomfort. It may also cause burning with urination. Men may carry and pass this infection without having any symptoms. Home Care: Your sexual partner needs to be treated even if he has no symptoms. He should contact his own doctor or go to the Public Health Department to be examined and treated. Avoid having sex until both you and your partner have finished all antibiotic medicine and all symptoms have gone away. Take all medicine as directed until it is gone. If you dont do this, symptoms may return. Keep the genital area clean and free of discharge by wearing an absorbent sanitary pad. Change the pad often. Shower daily, cleaning the outer vaginal area with plain soap and water. Do not douche during treatment unless advised to do so by your doctor. Routine douching after treatment is no longer recommended to clean the vagina. It raises your risk of vaginal infection and pelvic inflammatory disease. Wear cotton underwear or cotton-lined panty hose. Avoid tight-fitting pants. Follow Up with your doctor if symptoms dont go away after the medicine is finished. Get Prompt Medical Attention If Any Of The Following Occur: Fever of 100.4F (38C) or higher, or as directed by your healthcare provider Lower abdominal pain Rash or joint pain Open sores around the vagina or penis You have been given the following additional information: Vaginitis, Trichomonas (Electronically signed by Mike Bartlett MD 02/07/2017 10:54)
--- NOTE | 2017-02-07 10:54 | ED MED RECONCILIATION SUMMARY ---
Patient: CAMILLE OSHEA Medication Reconciliation Report [facility] VisitID: [id number] [address] [place] [address] 36y, F Registration Date/Time: 02/06/2017 Weight: 68.0 kg Height/Length: 64 in. BMI: 25.8 ALLERGIES: Compazine, Sulfa Antibiotics The patient's Home Medications are listed below: THE FOLLOWING MEDICATIONS NEED TO BE RECONCILED: Albuterol Sulfate Inhalation The source(s) of the original Home Medication information: patient The following Medications were given to the patient in the Emergency Department: None. The following Medications were prescribed to the patient: Flagyl 500 mg: Take 1 tablet orally every 12 hours for 7 days. No refill. Substitution is permissible. -- Mike Bartlett MD
--- NOTE | 2017-02-07 10:54 | ED MED RECONCILIATION SUMMARY ---
Patient: CAMILLE OSHEA Medication Reconciliation Report [facility] VisitID: [id number] [address] [place] [address] 36y, F Registration Date/Time: 02/06/2017 Weight: 68.0 kg Height/Length: 64 in. BMI: 25.8 ALLERGIES: Compazine, Sulfa Antibiotics The patient's Home Medications are listed below: THE FOLLOWING MEDICATIONS NEED TO BE RECONCILED: Albuterol Sulfate Inhalation The source(s) of the original Home Medication information: patient The following Medications were given to the patient in the Emergency Department: None. The following Medications were prescribed to the patient: Flagyl 500 mg: Take 1 tablet orally every 12 hours for 7 days. No refill. Substitution is permissible. -- Mike Bartlett MD
== END 2017-02-06 08:11 | disposition home or self-care (01) ==
LOC: ED SRH 03:04
DX: A59.01 Trichomonal vulvovaginitis (principal); J45.909 Unspecified asthma, uncomplicated; Z79.51 Long term (current) use of inhaled steroids
CPT/HCPCS: 90004; 90195; 90469; 91227; 91228; 93070

== ENCOUNTER 2017-04-25 18:56 | Emergency (ER) | payer OTHER ==
--- NOTE | 2017-04-25 20:47 | ED NURSING NOTES ---
Clinical Report - Nurses [facility] [address] [place] [address] 04/25/2017 18:56 Patient: CAMILLE OSHEA TRIAGE Triage time 19:06. Chief Complaint: FEVER, CHILLS and "NOT FEELING WELL". --19:14 Sheriff Thompson R.N. 19:06 04/25/17. BP: 128/81. HR: 88. RR: 18. O2 saturation: 98%. Temp: 98.1 F. Pain level now: 04/14. --19:14 Sheriff Thompson R.N. Weight: 72.5 kg stated. Height/Length: 64 inches Per Patient. BMI: 27.5. --19: Sheriff Thompson R.N. Medications Albuterol Sulfate Inhalation. --19:07 Sheriff Thompson R.N. Potassium Chloride Oral (Packet 20 meq) 1 packet, daily. --19: Sheriff Thompson R.N. Allergies Compazine. Sulfa Antibiotics. --19: Sheriff Thompson R.N. History Arrived by private vehicle. Historian: patient. Accompanied by spouse. ( Nausea.). PAST MEDICAL HX: Denies current . SURGERY HX: Cholecystectomy. SOCIAL HX: Light tobacco smoker- less than 1/2 a pack per day. History of drug use: heroin, methamphetamines. Recently used drugs today. No alcohol use. SKIN INTEGRITY ASSESSMENT: Skin integrity risk assessment was performed. (injection scars all over.). FALL RISK ASSESSMENT: Fall risk assessment completed. No fall risk identified. NUTRITIONAL RISK ASSESSMENT: The nutritional risk assessment revealed no deficiencies. FUNCTIONAL ASSESSMENT: Functional assessment: no impairments noted. LEARNING NEEDS ASSESSMENT: The learning needs assessment revealed no barriers. --19:14 Sheriff Thompson R.N. PROBLEMS: Vaginitis. Pyelonephritis. Narcotic Withdrawal. Hives. Bronchitis. Atypical Chest Pain. URI. Viral Disease. Anxiety Reaction. Immunocompromised. Cellulitis. Substance Abuse. Superficial Thrombophlebitis. Constipation. Hepatitis. Gastroenteritis. Lifestyle / Substance Problems. Diarrhea. Abdominal Pain. Abd pain. Pelvic Inflammatory Disease. Immunizations. LNMP - Last Normal Menstrual Period. Fibromyalgia. Degenerative Joint Disease. Asthma. Abscess. Bipolar Disorder. Anxiety disorder. Liver enzymes abnormal. --19:11 Sheriff Thompson R.N. Pleurisy [RuleOut]. --19:11 Sheriff Thompson R.N. PHYSICAL ASSESSMENT Ambulatory to room. GENERAL / NEURO / PSYCH: Alert. Oriented X 4. Appears in no acute distress. RESPIRATORY: Respirations not labored. CVS: Capillary refill less than 2 seconds. GI / : Abdomen soft. SKIN: Skin is warm and dry. Normal skin turgor. --19:14 Sheriff Thompson R.N. NURSING PROGRESS NOTES Patient gowned. Head of bed elevated. Two patient identifiers checked. Call light placed in reach. Side rails up x 2. Bed placed in lowest position. Brakes of bed on. --19:14 Sheriff Thompson R.N. Patient ID band checked for patient name, birthdate and social security number: patient confirmed. Instructions provided to collect clean catch urine urine collected with return of yellow-colored clear urine; odor is normal; sample sent to lab for urinalysis. Specimen labeled in the presence of the patient. --19:15 Sheriff Thompson R.N. 20:11 04/25/2017 Site #1 started via IV in the left forearm with an 22g angiocath, with aseptic technique and good blood return; one attempt. Blood drawn: rainbow set. Labeled in the presence of the patient and sent to the lab. Saline lock flushed with 10 mL saline. --20:16 Sheriff Thompson R.N. 20:29 04/25/2017 Started bag #1 500 mL IV Fluids IV NS (Saline); at 999 mL/hr over 30 minute(s) via site #1 via IV pump. Allergies verified and confirmed 5 rights. IV patency established. IV site checked: no pain, redness, or swelling. IV flushed thoroughly pre- and post-medication administration. --20:29 Sheriff Thompson R.N. DISPOSITION / DISCHARGE Condition at departure: stable. No learning barriers present. Discharge instructions provided and reviewed with the patient. Reviewed medication(s) side effects, precautions, dosing and course information. Prescription(s) given to the parent. Patient verbalized understanding. Written instructions provided in Spanish. The patient was discharged by the physician. She was discharged home and accompanied by spouse. She left the Emergency Department ambulatory and via private vehicle. Spouse driving. --21:16 Sheriff Thompson R.N. Locked/Released at 04/25/2017 21:16 by Sheriff Thompson R.N.
--- NOTE | 2017-04-25 20:47 | ED CLINICAL REPORT ---
Clinical Report - Physicians/Mid Levels [facility] [address] [place] [address] 04/25/2017 18:56 Patient: CAMILLE OSHEA Time Seen: 19:42. Arrived- By private vehicle. Historian- patient. HISTORY OF PRESENT ILLNESS Chief Complaint: FEVER, CHILLS and "NOT FEELING WELL". This started yesterday and is still present. The patient has had fatigue. No chest pain, dyspnea, cough or diarrhea. Additional history - Drug use present- heroin and methamphetamines. Recently used drugs today. REVIEW OF SYSTEMS The patient has had chills, fatigue and nausea and experienced sweats. She has had vomiting (several days ago - none recently). No neck pain. She has had a moderate global headache. she reports itching on the skin of her buttock near her vulva. All systems otherwise negative, except as recorded above. SOCIAL HISTORY Current every day light tobacco smoker (cigarette)- less than 1/2 a pack per day. History of drug use: heroin, methamphetamines. Recently used drugs today. FAMILY HISTORY Denies family medical history. ADDITIONAL NOTES The nursing notes have been reviewed. PHYSICAL EXAM Vital Signs: 04/25/2017 19:06 BP: 128/81. HR: 88. RR: 18. O2 saturation: 98%. Temp: 98.1 F. Pain level now: 6/10. Have been reviewed. Appearance: Alert. Eyes: Pupils equal, round and reactive to light. ENT: Pharynx normal. Neck: Neck supple. CVS: Normal heart rate and rhythm. Heart sounds normal. Respiratory: No respiratory distress. Breath sounds normal. Abdomen: Soft and nontender. Bowel sounds normal. No mass. Obese. Back: Normal inspection. : Normal external exam. (a female english as a second language instructor was present). Skin: (patient was noted to have multiple areas of track cowan and scarring on her extremities & chest). Extremities: Extremities exhibit normal ROM. No calf tenderness. LABS, X-RAYS, AND EKG Laboratory Tests: UA-Culture if indicated: (GINA: 04/25/2017 19:10) ( MsgRcvd 04/25/2017 20:25) Final results Test Result Flag Units (Reference) URINE COLOR YELLOW URINE APPEARANCE CLEAR URINE GLUCOSE NEGATIVE (NEGATIVE) URINE BILIRUBIN NEGATIVE (NEGATIVE) URINE KETONE NEGATIVE (NEGATIVE) URINE SPECIFIC GRAVITY 1.025 (1.010-1.030) URINE PH 6.0 (5.0-8.0) URINE PROTEIN NEGATIVE (NEGATIVE) URINE UROBILINOGEN 0.2 EU/dL (0.2-1.0) URINE NITRITE NEGATIVE (NEGATIVE) URINE BLOOD TRACE-LYSED (NEGATIVE) URINE LEUK ESTERASE NEGATIVE (NEGATIVE) URINE RBC RARE rbc/hpf (0-1) URINE WBC 0-1 wbc/hpf (0-1) URINE EPITHELIAL CELLS 1-3 EPI/hpf (0-5) URINE BACTERIA MODERATE (2+ TO 3+) (NONE SEEN) URINE COMMENT CULTURE INDICATED 1+ MUCUSURINE CULTURES ARE SET-UP BASED ON THE FOLLOWING CRITERIA:POSITIVE NITRITEPOSITIVE LEUKOCYTE ESTERASEGREATER THAN 10 WHITE BLOOD CELLSMODERATE (2+) OR GREATER BACTERIA Urine: (GINA: 04/25/2017 19:10) ( [employer] 04/25/2017 20:05) Final results Test Result Flag Units (Reference) URINE NEGATIVE CBC w Diff: (GINA: 04/25/2017 20:07) ( [employer] 04/25/2017 20:16) Final results Test Result Flag Units (Reference) WHITE BLOOD COUNT 8.2 K/uL (4.5-11.5) RED BLOOD COUNT 4.61 M/uL (4.00-5.20) HEMOGLOBIN 12.9 gm/dL (12.0-16.0) HEMATOCRIT 38.1 % (36.0-46.0) MEAN CELL VOLUME 83 fL (80-100) MEAN CORPUSCULAR HGB 28 pg (26-34) MEAN CORPUSCULAR HGB CONC 34 g/dL (31-37) RED CELL DISTRIBUTION WIDTH 15.1 H % (11.6-14.8) PLATELET COUNT 341 K/uL (150-400) NEUTROPHIL % 69.2 % (50-75) LYMPH % 23.5 L % (25-40) MONO % 4.5 % (3-14) EOSINOPHIL % 2.5 % (0-4) BASOPHIL % 0.3 % (0-2) Urine Drug Screen: (GINA: 04/25/2017 19:10) ( MsgRcvd 04/25/2017 20:29) Final results Test Result Flag Units (Reference) AMPHETAMINE/METHAMPHETAMINE POSITIVE H (NEGATIVE) BARBITURATE NEGATIVE (NEGATIVE) BENZODIAZEPINE NEGATIVE (NEGATIVE) CANNABINOID NEGATIVE (NEGATIVE) COCAINE NEGATIVE (NEGATIVE) ECSTASY NEGATIVE (NEGATIVE) METHADONE NEGATIVE (NEGATIVE) OPIATE POSITIVE H (NEGATIVE) The urine drug screen is a qualitative screening test fordrug overdose and abuse. All screen results should beconsidered as presumptive.Drugs screened for are as follows:BenzodiazepinesCocaineAmphetamines/MetamphetaminesTHC (Tetrahydrocannabinol)OpiatesBarbituratesEcstasyMethadonePositive results are unconfirmed. For confirmation, notifythe lab for the specimen to be sent to the reference lab.All confirmations must be performed by a differentmethodology.The ingestion of natural herbal and plant productscontaining Ephedra/Ephedra metabolites can produce in urineone or more substances capable of cross reacting withamphetamine/methamphetamine immunoassays. These testsprovide a preliminary result only. A more specificalternative chemical method must be used to obtain aconfirmed analytical result. CMP: (GINA: 04/25/2017 20:07) ( MsgRcvd 04/25/2017 20:27) Final results Test Result Flag Units (Reference) GLUCOSE 99 mg/dL (70-110) BUN 14 mg/dL (7-18) CREATININE 0.7 mg/dL (0.6-1.3) Estimated GFR >60 mL/min Estimated GFR- >60 mL/min Note: Persistent reduction over 3 months in eGFR<60 mL/min/1.73 m2 defines CKD. Patients with eGFR values>=60 mL/min/1.73 m2 may also have CKD if evidence ofpersistent proteinuria. Additional information may be foundat www.kidney.org. SODIUM 139 mmol/L (136-145) POTASSIUM 4.1 mmol/L (3.5-5.1) CHLORIDE 103 mmol/L (98-107) CARBON DIOXIDE 27 mmol/L (21-32) CALCIUM 8.9 mg/dL (8.5-10.1) TOTAL PROTEIN 7.6 g/dL (6.4-8.2) ALBUMIN 3.4 g/dL (3.3-5.0) BILIRUBIN, TOTAL 0.3 mg/dL (0.0-1.0) ALKALINE PHOSPHATASE 81 U/L (46-116) AST (SGOT) 15 U/L (15-37) ALT (SGPT) 20 U/L (12-78) LIPASE 75 U/L (73-393) AMYLASE 24 L U/L (25-115) . PROGRESS AND PROCEDURES Patient/family counseled. Old medical records reviewed. Disposition: Discharged. Condition: stable. CLINICAL IMPRESSION Fever (subjective). Nausea. INSTRUCTIONS No driving or operating machinery. Drink plenty of fluids. Warnings: Further evaluation is necessary. GENERAL WARNINGS: Return or contact your physician immediately if your condition worsens or changes unexpectedly, if not improving as expected, or if other problems arise. Prescription Medications: Zofran 4 mg: Take 1 orally every six hours as needed for nausea/vomiting. Dispense ten (10). No refills. Substitution is permissible. Phenergan suppositories 25 mg: Insert 1 rectally every 4 to 6 hours as needed for nausea or vomiting. Dispense ten (10). No refills. Substitution is permissible. Clonidine 0.1 mg: take 1 orally every 8 hours. Dispense fifteen (15). No refills. Follow-up: Follow up with your doctor [facility] tomorrow. Call for the next available appointment. Understanding of the discharge instructions verbalized by patient. (Electronically signed by Madhu Marrero MD 04/26/2017 21:26)
--- NOTE | 2017-04-25 20:47 | ED ORDER SUMMARY ---
..... Patient: CAMILLE OSHEA OrderSheet [facility] VisitID: [id number] [address] [place] [address] 36y, F Registration Date/Time: 04/25/2017 ORDER SHEET Weight: 72.5 kg (stated) Allergies: Compazine, Sulfa Antibiotics GENERAL ORDERS: CBC w Diff Urgent (19:49 04/25/2017 Claribel EVERETT) (Ack 19:52 AMcQuoid ER Tech1) CMP Urgent (19:49 04/25/2017 Claribel EVERETT) (Ack 19:52 AMcQuoid ER Tech1) UA-Culture if indicated Urgent (19:49 04/25/2017 Claribel EVERETT) (Ack 19:52 AMcQuoid ER Tech1) Amylase Urgent (19:49 04/25/2017 Claribel EVERETT) (Ack 19:52 AMcQuoid ER Tech1) Lipase Urgent (19:49 04/25/2017 Claribel EVERETT) (Ack 19:52 AMcQuoid ER Tech1) Urine Urgent (19:49 04/25/2017 Claribel EVERETT) (Ack 19:52 AMcQuoid ER Tech1) Urine Drug Screen Urgent (19:49 04/25/2017 Claribel EVERETT) (Ack 19:52 AMcQuoid ER Tech1) MEDICATION ORDERS: IV FLUIDS: IV Saline Lock (19:49 04/25/2017 Claribel EVERETT) (20:16 SSambou R.N.) IV NS : initial bolus 500 mL (1000 mL/hr), then 125 mL/hr for 4h (NOW); Urgent (20:26 04/25/2017 Claribel EVERETT) (20:29 SSambou R.N.) ORDER SHEET NOTES: [Electronically signed by Sheriff Galilea Thompson (21:04/25/2017)] [Electronically signed by Madhu Marrero MD (21:26 04/26/2017)] [Electronically locked/signed by Sheriff Galilea Thompson (21:16 04/25/2017)]
--- NOTE | 2017-04-25 20:47 | ED CLINICAL REPORT ---
Clinical Report - Physicians/Mid Levels [facility] [address] [place] [address] 04/25/2017 18:56 Patient: CAMILLE OSHEA Time Seen: 19:42. Arrived- By private vehicle. Historian- patient. HISTORY OF PRESENT ILLNESS Chief Complaint: FEVER, CHILLS and "NOT FEELING WELL". This started yesterday and is still present. The patient has had fatigue. No chest pain, dyspnea, cough or diarrhea. Additional history - Drug use present- heroin and methamphetamines. Recently used drugs today. REVIEW OF SYSTEMS The patient has had chills, fatigue and nausea and experienced sweats. She has had vomiting (several days ago - none recently). No neck pain. She has had a moderate global headache. she reports itching on the skin of her buttock near her vulva. All systems otherwise negative, except as recorded above. SOCIAL HISTORY Current every day light tobacco smoker (cigarette)- less than 1/2 a pack per day. History of drug use: heroin, methamphetamines. Recently used drugs today. FAMILY HISTORY Denies family medical history. ADDITIONAL NOTES The nursing notes have been reviewed. PHYSICAL EXAM Vital Signs: 04/25/2017 19:06 BP: 128/81. HR: 88. RR: 18. O2 saturation: 98%. Temp: 98.1 F. Pain level now: 6/10. Have been reviewed. Appearance: Alert. Eyes: Pupils equal, round and reactive to light. ENT: Pharynx normal. Neck: Neck supple. CVS: Normal heart rate and rhythm. Heart sounds normal. Respiratory: No respiratory distress. Breath sounds normal. Abdomen: Soft and nontender. Bowel sounds normal. No mass. Obese. Back: Normal inspection. : Normal external exam. (a female boat dispatcher was present). Skin: (patient was noted to have multiple areas of track cowan and scarring on her extremities & chest). Extremities: Extremities exhibit normal ROM. No calf tenderness. LABS, X-RAYS, AND EKG Laboratory Tests: UA-Culture if indicated: (GINA: 04/25/2017 19:10) ( MsgRcvd 04/25/2017 20:25) Final results Test Result Flag Units (Reference) URINE COLOR YELLOW URINE APPEARANCE CLEAR URINE GLUCOSE NEGATIVE (NEGATIVE) URINE BILIRUBIN NEGATIVE (NEGATIVE) URINE KETONE NEGATIVE (NEGATIVE) URINE SPECIFIC GRAVITY 1.025 (1.010-1.030) URINE PH 6.0 (5.0-8.0) URINE PROTEIN NEGATIVE (NEGATIVE) URINE UROBILINOGEN 0.2 EU/dL (0.2-1.0) URINE NITRITE NEGATIVE (NEGATIVE) URINE BLOOD TRACE-LYSED (NEGATIVE) URINE LEUK ESTERASE NEGATIVE (NEGATIVE) URINE RBC RARE rbc/hpf (0-1) URINE WBC 0-1 wbc/hpf (0-1) URINE EPITHELIAL CELLS 1-3 EPI/hpf (0-5) URINE BACTERIA MODERATE (2+ TO 3+) (NONE SEEN) URINE COMMENT CULTURE INDICATED 1+ MUCUSURINE CULTURES ARE SET-UP BASED ON THE FOLLOWING CRITERIA:POSITIVE NITRITEPOSITIVE LEUKOCYTE ESTERASEGREATER THAN 10 WHITE BLOOD CELLSMODERATE (2+) OR GREATER BACTERIA Urine: (GNIA: 04/25/2017 19:10) ( [facility] 04/25/2017 20:05) Final results Test Result Flag Units (Reference) URINE NEGATIVE CBC w Diff: (GINA: 04/25/2017 20:07) ( [facility] 04/25/2017 20:16) Final results Test Result Flag Units (Reference) WHITE BLOOD COUNT 8.2 K/uL (4.5-11.5) RED BLOOD COUNT 4.61 M/uL (4.00-5.20) HEMOGLOBIN 12.9 gm/dL (12.0-16.0) HEMATOCRIT 38.1 % (36.0-46.0) MEAN CELL VOLUME 83 fL (80-100) MEAN CORPUSCULAR HGB 28 pg (26-34) MEAN CORPUSCULAR HGB CONC 34 g/dL (31-37) RED CELL DISTRIBUTION WIDTH 15.1 H % (11.6-14.8) PLATELET COUNT 341 K/uL (150-400) NEUTROPHIL % 69.2 % (50-75) LYMPH % 23.5 L % (25-40) MONO % 4.5 % (3-14) EOSINOPHIL % 2.5 % (0-4) BASOPHIL % 0.3 % (0-2) Urine Drug Screen: (GINA: 04/25/2017 19:10) ( MsgRcvd 04/25/2017 20:29) Final results Test Result Flag Units (Reference) AMPHETAMINE/METHAMPHETAMINE POSITIVE H (NEGATIVE) BARBITURATE NEGATIVE (NEGATIVE) BENZODIAZEPINE NEGATIVE (NEGATIVE) CANNABINOID NEGATIVE (NEGATIVE) COCAINE NEGATIVE (NEGATIVE) ECSTASY NEGATIVE (NEGATIVE) METHADONE NEGATIVE (NEGATIVE) OPIATE POSITIVE H (NEGATIVE) The urine drug screen is a qualitative screening test fordrug overdose and abuse. All screen results should beconsidered as presumptive.Drugs screened for are as follows:BenzodiazepinesCocaineAmphetamines/MetamphetaminesTHC (Tetrahydrocannabinol)OpiatesBarbituratesEcstasyMethadonePositive results are unconfirmed. For confirmation, notifythe lab for the specimen to be sent to the reference lab.All confirmations must be performed by a differentmethodology.The ingestion of natural herbal and plant productscontaining Ephedra/Ephedra metabolites can produce in urineone or more substances capable of cross reacting withamphetamine/methamphetamine immunoassays. These testsprovide a preliminary result only. A more specificalternative chemical method must be used to obtain aconfirmed analytical result. CMP: (GINA: 04/25/2017 20:07) ( MsgRcvd 04/25/2017 20:27) Final results Test Result Flag Units (Reference) GLUCOSE 99 mg/dL (70-110) BUN 14 mg/dL (7-18) CREATININE 0.7 mg/dL (0.6-1.3) Estimated GFR >60 mL/min Estimated GFR- >60 mL/min Note: Persistent reduction over 3 months in eGFR<60 mL/min/1.73 m2 defines CKD. Patients with eGFR values>=60 mL/min/1.73 m2 may also have CKD if evidence ofpersistent proteinuria. Additional information may be foundat www.kidney.org. SODIUM 139 mmol/L (136-145) POTASSIUM 4.1 mmol/L (3.5-5.1) CHLORIDE 103 mmol/L (98-107) CARBON DIOXIDE 27 mmol/L (21-32) CALCIUM 8.9 mg/dL (8.5-10.1) TOTAL PROTEIN 7.6 g/dL (6.4-8.2) ALBUMIN 3.4 g/dL (3.3-5.0) BILIRUBIN, TOTAL 0.3 mg/dL (0.0-1.0) ALKALINE PHOSPHATASE 81 U/L (46-116) AST (SGOT) 15 U/L (15-37) ALT (SGPT) 20 U/L (12-78) LIPASE 75 U/L (73-393) AMYLASE 24 L U/L (25-115) . PROGRESS AND PROCEDURES Patient/family counseled. Old medical records reviewed. Disposition: Discharged. Condition: stable. CLINICAL IMPRESSION Fever (subjective). Nausea. INSTRUCTIONS No driving or operating machinery. Drink plenty of fluids. Warnings: Further evaluation is necessary. GENERAL WARNINGS: Return or contact your physician immediately if your condition worsens or changes unexpectedly, if not improving as expected, or if other problems arise. Prescription Medications: Zofran 4 mg: Take 1 orally every six hours as needed for nausea/vomiting. Dispense ten (10). No refills. Substitution is permissible. Phenergan suppositories 25 mg: Insert 1 rectally every 4 to 6 hours as needed for nausea or vomiting. Dispense ten (10). No refills. Substitution is permissible. Clonidine 0.1 mg: take 1 orally every 8 hours. Dispense fifteen (15). No refills. Follow-up: Follow up with your doctor [facility] tomorrow. Call for the next available appointment. Understanding of the discharge instructions verbalized by patient. (Electronically signed by Madhu Marrero MD 04/26/2017 21:26)
--- NOTE | 2017-04-25 20:47 | ED ORDER SUMMARY ---
..... Patient: CAMILLE OSHEA OrderSheet [facility] VisitID: [id number] [address] [place] [address] 36y, F Registration Date/Time: 04/25/2017 ORDER SHEET Weight: 72.5 kg (stated) Allergies: Compazine, Sulfa Antibiotics GENERAL ORDERS: CBC w Diff Urgent (19:49 04/25/2017 Claribel EVERETT) (Ack 19:52 AMcQuoid ER Tech1) CMP Urgent (19:49 04/25/2017 Claribel EVERETT) (Ack 19:52 AMcQuoid ER Tech1) UA-Culture if indicated Urgent (19:49 04/25/2017 Claribel EVERETT) (Ack 19:52 AMcQuoid ER Tech1) Amylase Urgent (19:49 04/25/2017 Claribel EVERETT) (Ack 19:52 AMcQuoid ER Tech1) Lipase Urgent (19:49 04/25/2017 Claribel EVERETT) (Ack 19:52 AMcQuoid ER Tech1) Urine Urgent (19:49 04/25/2017 Claribel EVERETT) (Ack 19:52 AMcQuoid ER Tech1) Urine Drug Screen Urgent (19:49 04/25/2017 Claribel EVERETT) (Ack 19:52 AMcQuoid ER Tech1) MEDICATION ORDERS: IV FLUIDS: IV Saline Lock (19:49 04/25/2017 Claribel EVERETT) (20:16 SSambou R.N.) IV NS : initial bolus 500 mL (1000 mL/hr), then 125 mL/hr for 4h (NOW); Urgent (20:26 04/25/2017 Claribel EVERETT) (20:29 SSambou R.N.) ORDER SHEET NOTES: [Electronically signed by Sheriff Galilea Thompson (21:04/25/2017)] [Electronically signed by Madhu Marrero MD (21:26 04/26/2017)] [Electronically locked/signed by Sheriff Galilea Thompson (21:16 04/25/2017)]
--- NOTE | 2017-04-26 21:27 | ED MAR SUMMARY ---
..... Medication Administration Record [facility] [address] [place] [address] Patient: CAMILLE OSHEA Visit ID: [id number] 36y, F Weight: 72.5 kg Height/Length: 64 in BMI: 27.5 ALLERGIES: Compazine, Sulfa Antibiotics Start 20:29 04/25/2017 Sheriff Thompson R.N. Medication Administered: IV NS (SALINE), Dose: IV Fluids over 30 minute(s), Rate: 999 mL/hr, Dispensed: 500 mL bag, Site: #1 left forearm. Medication Ordered: IV NS : initial bolus 500 mL (1000 mL/hr), then 125 mL/hr for 4h (NOW); Urgent.
--- NOTE | 2017-04-26 21:27 | ED MED RECONCILIATION SUMMARY ---
Patient: CAMILLE OSHEA Medication Reconciliation Report [facility] VisitID: [id number] [address] [place] [address] 36y, F Registration Date/Time: 04/25/2017 Weight: 72.5 kg Height/Length: 64 in. BMI: 27.5 ALLERGIES: Compazine, Sulfa Antibiotics The patient's Home Medications are listed below: THE FOLLOWING MEDICATIONS NEED TO BE RECONCILED: Albuterol Sulfate Inhalation Potassium Chloride Oral (20 meq) 1 packet, daily The source(s) of the original Home Medication information: Not obtained. The following Medications were given to the patient in the Emergency Department: IV NS IV Fluids bolus 0, then 999 mL/hr, administered: 04/25/2017 8:29:00 PM The following Medications were prescribed to the patient: Zofran 4 mg: Take 1 orally every six hours as needed for nausea/vomiting. Dispense ten (10). No refills. Substitution is permissible. -- Madhu Marrero MD Phenergan suppositories 25 mg: Insert 1 rectally every 4 to 6 hours as needed for nausea or vomiting. Dispense ten (10). No refills. Substitution is permissible. -- Madhu Marrero MD Clonidine 0.1 mg: take 1 orally every 8 hours. Dispense fifteen (15). No refills. -- Madhu Marrero MD
--- NOTE | 2017-04-26 21:27 | ED MAR SUMMARY ---
..... Medication Administration Record [facility] [address] [place] [address] Patient: CAMILLE OSHEA Visit ID: [id number] 36y, F Weight: 72.5 kg Height/Length: 64 in BMI: 27.5 ALLERGIES: Compazine, Sulfa Antibiotics Start 20:29 04/25/2017 Sheriff Thompson R.N. Medication Administered: IV NS (SALINE), Dose: IV Fluids over 30 minute(s), Rate: 999 mL/hr, Dispensed: 500 mL bag, Site: #1 left forearm. Medication Ordered: IV NS : initial bolus 500 mL (1000 mL/hr), then 125 mL/hr for 4h (NOW); Urgent.
--- NOTE | 2017-04-26 21:27 | ED DISCHARGE INSTRUCTIONS ---
Patient: CAMILLE OSHEA General Instructions [facility] VisitID: [id number] [place] [address] 36y, F Registration Date/Time: 04/25/2017 Fever (subjective). Nausea. INSTRUCTIONS No driving or operating machinery. Drink plenty of fluids. Warnings: Further evaluation is necessary. GENERAL WARNINGS: Return or contact your physician immediately if your condition worsens or changes unexpectedly, if not improving as expected, or if other problems arise. Prescription Medications: Zofran 4 mg: Take 1 orally every six hours as needed for nausea/vomiting. Dispense ten (10). No refills. Substitution is permissible. Phenergan suppositories 25 mg: Insert 1 rectally every 4 to 6 hours as needed for nausea or vomiting. Dispense ten (10). No refills. Substitution is permissible. Clonidine 0.1 mg: take 1 orally every 8 hours. Dispense fifteen (15). No refills. Follow-up: Follow up with your doctor [facility] tomorrow. Call for the next available appointment. Understanding of the discharge instructions verbalized by patient. ADDITIONAL INFORMATION Febrile Illness, Uncertain Cause (Adult) You have a fever, but the cause is not certain. A fever is a natural reaction of the body to an illness such as infections due to a virus or bacteria. In most cases, the temperature itself is not harmful. It actually helps the body fight infections. A fever does not need to be treated unless you feel very uncomfortable. Sometimes a fever can be an early sign of a more serious infection. Therefore, you should watch for the signs listed below. Home Care: If signs and symptoms are severe, rest at home for the first 2-3 days. When you resume activity, don't let yourself get too tired. Stay away from cigarette smoke (yours and other peoples). You may use acetaminophen (Tylenol) or ibuprofen (Motrin, Advil) to control fever or pain, unless another medicine was prescribed. NOTE: If you have chronic liver or kidney disease or ever had a stomach ulcer or GI bleeding, talk with your doctor before using these medicines. (Aspirin should never be used in anyone under 18 years of age who is ill with a fever. It may cause severe liver damage.) Your appetite may be poor, so a light diet is fine. Avoid dehydration by drinking 6-8 glasses of fluid per day (water, sport drinks such as Gatorade, sodas without caffeine, juices, tea, soup). Extra fluid will help loosen secretions in the nose and lungs. Cnlk-koz-kwubzua products will not shorten the duration of the illness but may be helpful for the following symptoms: cough (Robitussin DM); sore throat (Chloraseptic lozenges or spray); nasal and sinus congestion (Actifed or Sudafed). NOTE: Do not use decongestants if you have high blood pressure. Follow Up with your doctor or as advised if you do not start to improve over the next week. Get Prompt Medical Attention if any of the following occur: Cough with lots of colored sputum (mucus) or blood in your sputum Chest pain, shortness of breath, wheezing or difficulty breathing Severe headache, face, neck, throat or ear pain Feeling drowsy or confused Abdominal pain, repeated vomiting or diarrhea Joint pain or a new rash Burning when urinating Fever of 100.4F (38C) oral or higher, not better with fever medication Feeling weak or dizzy Convulsion Taking Your Child's Temperature If your child feels hot, then check the temperature. Under 3 months : Start with a AXILLARY temperature. If it is above 99.0 F (37.2 C), take a RECTAL temperature. 3 months to 4 years : Measure a RECTAL temperature, or an EAR temperature. Over 4 years : Measure an ORAL temperature. Rectal Temperature is the most accurate. Ear temperature is not as accurate as a rectal or oral temperature, but is more convenient and can be used in the 3 month to 4 year old. Other methods such as plastic strips , forehead devices , and pacifier thermometers are even less accurate and they are not recommended. If you do not know how to use a thermometer, ask your nurse or pharmacist. Oral Method: Normal: 98.6 F (37.0 C). Range of normal: Up to 99.0 F (37.2 C). Recommended Age: Use this method for children older than 4 or 5 years of age, only if cooperative. 1) Wait at least 20 minutes after drinking or eating before taking an oral temperature. 2) Place the tip of a the thermometer under the child's tongue. 3) Have child close lips gently, without biting on the thermometer. 4) Keep under the tongue until the thermometer beeps. 5) Remove thermometer and read the temperature in the display. 6) Clean the thermometer with alcohol, or soap and water after each use. Axillary Method (UNDER THE ARM): Normal: 97.6 F (36.6 C) Range of Normal: Up to 98.6 F (37.0 C) Recommended Age: Use this method for children under 4 years of age or any uncooperative child. 1) Make sure armpit is dry and the child does not have clothing between arm and chest. 2) Place the tip of the thermometer high up in the armpit. 4) Hold the child's arm snug against their body with the thermometer in place until it beeps. 5) Remove thermometer and read the temperature in the display. 6) Clean the thermometer with alcohol, or soap and water after each use. Rectal Method: Normal: 99.6 F (37.6 C). Range of Normal: Up to 100.4 F (38.0 C). Recommended age: Use this method for children under 4 years of age or any uncooperative child. 1) Lubricate the tip of a rectal thermometer with a lubricant such as Vaseline jelly or K-Y jelly. 2) Lay your child face down across your lap, or on his/her side with knees bent toward the chest. Spread buttocks so that the anus can be easily seen. 3) Hold the thermometer between your thumb and index finger with the edge of your hand resting on the buttocks. Slowly and gently insert thermometer into the anus about one inch. The tip should slide in easily. Do not force it since they may cause injury. 4) Do not let go of the thermometer! Hold it carefully in place until it beeps. 5) Remove thermometer and read the temperature in the display. 6) Clean the thermometer with alcohol, or soap and water after each use. When To Seek Help Call your doctor or return here if you have an infant younger than 3 months with a temperature of 100.4 F (38.0 C) or an older child with a fever higher than 104.0 F (40.0 C). Ondansetron Oral disintegrating tablet What is this medicine? ONDANSETRON (on GOYO se letty) is used to treat nausea and vomiting caused by chemotherapy. It is also used to prevent or treat nausea and vomiting after surgery. How should I use this medicine? These tablets are made to dissolve in the mouth. Do not try to push the tablet through the foil backing. With dry hands, peel away the foil backing and gently remove the tablet. Place the tablet in the mouth and allow it to dissolve, then swallow. While you may take these tablets with water, it is not necessary to do so. Talk to your agile coach regarding the use of this medicine in children. Special care may be needed. What side effects may I notice from receiving this medicine? Side effects that you should report to your doctor or health aged or disabled carer as soon as possible: allergic reactions like skin rash, itching or hives, swelling of the face, lips, or tongue breathing problems dizziness fast or irregular heartbeat feeling faint or lightheaded, falls fever and chills swelling of the hands and feet tightness in the chest Side effects that usually do not require medical attention (report to your doctor or health aged or disabled carer if they continue or are bothersome): constipation or diarrhea headache What may interact with this medicine? Do not take this medicine with any of the following medications: -apomorphine -cisapride -dofetilide -dronedarone -pimozide -thioridazine -ziprasidone This medicine may also interact with the following medications: -carbamazepine -phenytoin -rifampicin -tramadol -other medicines that prolong the QT interval (cause an abnormal heart rhythm) What if I miss a dose? If you miss a dose, take it as soon as you can. If it is almost time for your next dose, take only that dose. Do not take double or extra doses. Where should I keep my medicine? Keep out of the reach of children. Store between 2 and 30 degrees C (36 and 86 degrees F). Throw away any unused medicine after the expiration date. What should I tell my health care provider before I take this medicine? They need to know if you have any of these conditions: heart disease history of irregular heartbeat liver disease low levels of magnesium or potassium in the blood an unusual or allergic reaction to ondansetron, granisetron, other medicines, foods, dyes, or preservatives or trying to get breast-feeding What should I watch for while using this medicine? Check with your doctor or health aged or disabled carer as soon as you can if you have any sign of an allergic reaction. Promethazine Hydrochloride Rectal suppository What is this medicine? PROMETHAZINE (proe METH a zeen) is an antihistamine. It is used to treat allergic reactions and to treat or prevent nausea and vomiting from illness or motion sickness. It is also used to make you sleep before surgery, and to help treat pain or nausea after surgery. How should I use this medicine? This medicine is for rectal use only. Do not take by mouth. Wash your hands before and after use. Take off the foil wrapping. Wet the tip of the suppository with cold tap water to make it easier to use. Lie on your side with your lower leg straightened out and your upper leg bent forward toward your stomach. Lift upper buttock to expose the rectal area. Apply gentle pressure to insert the suppository completely into the rectum, pointed end first. Hold buttocks together for a few seconds. Remain lying down for about 15 minutes to avoid having the suppository come out. Do not use more often than directed. Talk to your agile coach regarding the use of this medicine in children. Special care may be needed. This medicine should not be given to infants and children younger than 2 years old. What side effects may I notice from receiving this medicine? Side effects that you should report to your doctor or health aged or disabled carer as soon as possible: blurred vision irregular heartbeat, palpitations or chest pain muscle or facial twitches pain or difficulty passing urine seizures skin rash slowed or shallow breathing unusual bleeding or bruising yellowing of the eyes or skin Side effects that usually do not require medical attention (report to your doctor or health aged or disabled carer if they continue or are bothersome): headache nightmares, agitation, nervousness, excitability, not able to sleep (these are more likely in children) stuffy nose What may interact with this medicine? Do not take this medicine with any of the following medications: medicines called MAO Inhibitors like Nardil, Parnate, Marplan, Eldepryl other phenothiazines like trimethobenzamide This medicine may also interact with the following medications: barbiturates such as phenobarbital bromocriptine certain antidepressants certain antihistamines used in allergy or cold medicines epinephrine levodopa medicines for sleep medicines for mental problems and psychotic disturbances medicines for movement abnormalities as in Parkinson's disease, or for gastrointestinal problems muscle relaxants prescription pain medicines What if I miss a dose? If you miss a dose, use it as soon as you can. If it is almost time for your next dose, use only that dose. Do not use double doses. Where should I keep my medicine? Keep out of the reach of children. Store in a refrigerator between 2 and 8 degrees C (36 and 46 degrees F). Throw away any unused medicine after the expiration date. What should I tell my health care provider before I take this medicine? They need to know if you have any of these conditions: glaucoma high blood pressure or heart disease kidney disease liver disease lung or breathing disease, like asthma prostate trouble pain or difficulty passing urine seizures an unusual or allergic reaction to promethazine or phenothiazines, other medicines, foods, dyes, or preservatives or trying to get breast-feeding What should I watch for while using this medicine? Tell your doctor or health aged or disabled carer if your symptoms do not start to get better in 1 to 2 days. You may get drowsy or dizzy. Do not drive, use machinery, or do anything that needs mental alertness until you know how this medicine affects you. To reduce the risk of dizzy or fainting spells, do not stand or sit up quickly, especially if you are an older patient. Alcohol may increase dizziness and drowsiness. Avoid alcoholic drinks. Your mouth may get dry. Chewing sugarless gum or sucking hard candy, and drinking plenty of water may help. Contact your doctor if the problem does not go away or is severe. This medicine may cause dry eyes and blurred vision. If you wear contact lenses you may feel some discomfort. Lubricating drops may help. See your eye doctor if the problem does not go away or is severe. This medicine can make you more sensitive to the sun. Keep out of the sun. If you cannot avoid being in the sun, wear protective clothing and use sunscreen. Do not use sun lamps or tanning beds/booths. If you are diabetic, check your blood-sugar levels regularly. Clonidine Hydrochloride Oral tablet What is this medicine? CLONIDINE (KLOE ni enoc) is used to treat high blood pressure. How should I use this medicine? Take this medicine by mouth with a glass of water. Follow the directions on the prescription label. Take your doses at regular intervals. Do not take your medicine more often than directed. Do not suddenly stop taking this medicine. You must gradually reduce the dose or you may get a dangerous increase in blood pressure. Ask your doctor or health aged or disabled carer for advice. Talk to your agile coach regarding the use of this medicine in children. Special care may be needed. What side effects may I notice from receiving this medicine? Side effects that you should report to your doctor or health aged or disabled carer as soon as possible: allergic reactions like skin rash, itching or hives, swelling of the face, lips, or tongue anxiety, nervousness chest pain depression fast, irregular heartbeat swelling of feet or legs unusually weak or tired Side effects that usually do not require medical attention (report to your doctor or health aged or disabled carer if they continue or are bothersome): change in sex drive or performance constipation headache What may interact with this medicine? Do not take this medicine with any of the following medications: MAOIs like Carbex, Eldepryl, Marplan, Nardil, and Parnate This medicine may also interact with the following medications: barbiturate medicines for inducing sleep or treating seizures like phenobarbital certain medicines for blood pressure, heart disease, irregular heart beat certain medicines for depression, anxiety, or psychotic disturbances prescription pain medicines What if I miss a dose? If you miss a dose, take it as soon as you can. If it is almost time for your next dose, take only that dose. Do not take double or extra doses. Where should I keep my medicine? Keep out of the reach of children. Store at room temperature between 15 and 30 degrees C (59 and 86 degrees F). Protect from light. Keep container tightly closed. Throw away any unused medicine after the expiration date. What should I tell my health care provider before I take this medicine? They need to know if you have any of these conditions: kidney disease an unusual or allergic reaction to clonidine, other medicines, foods, dyes, or preservatives or trying to get breast-feeding What should I watch for while using this medicine? Visit your doctor or health aged or disabled carer for regular checks on your progress. Check your heart rate and blood pressure regularly while you are taking this medicine. Ask your doctor or health aged or disabled carer what your heart rate should be and when you should contact him or her. You may get drowsy or dizzy. Do not drive, use machinery, or do anything that needs mental alertness until you know how this medicine affects you. To avoid dizzy or fainting spells, do not stand or sit up quickly, especially if you are an older person. Alcohol can make you more drowsy and dizzy. Avoid alcoholic drinks. Your mouth may get dry. Chewing sugarless gum or sucking hard candy, and drinking plenty of water will help. Do not treat yourself for coughs, colds, or pain while you are taking this medicine without asking your doctor or health aged or disabled carer for advice. Some ingredients may increase your blood pressure. If you are going to have surgery tell your doctor or health aged or disabled carer that you are taking this medicine. You have been given the following additional information: Febrile Illness, Uncertain Cause (Adult) Thermometer Use Ondansetron Oral disintegrating tablet Promethazine Hydrochloride Rectal suppository Clonidine Hydrochloride Oral tablet No driving or operating machinery. (Electronically signed by Madhu Marrero MD 04/26/2017 21:26)
--- NOTE | 2017-04-26 21:27 | ED DISCHARGE INSTRUCTIONS ---
Patient: CAMILLE OSHEA General Instructions [facility] VisitID: [id number] [place] [address] 36y, F Registration Date/Time: 04/25/2017 Fever (subjective). Nausea. INSTRUCTIONS No driving or operating machinery. Drink plenty of fluids. Warnings: Further evaluation is necessary. GENERAL WARNINGS: Return or contact your physician immediately if your condition worsens or changes unexpectedly, if not improving as expected, or if other problems arise. Prescription Medications: Zofran 4 mg: Take 1 orally every six hours as needed for nausea/vomiting. Dispense ten (10). No refills. Substitution is permissible. Phenergan suppositories 25 mg: Insert 1 rectally every 4 to 6 hours as needed for nausea or vomiting. Dispense ten (10). No refills. Substitution is permissible. Clonidine 0.1 mg: take 1 orally every 8 hours. Dispense fifteen (15). No refills. Follow-up: Follow up with your doctor [facility] tomorrow. Call for the next available appointment. Understanding of the discharge instructions verbalized by patient. ADDITIONAL INFORMATION Febrile Illness, Uncertain Cause (Adult) You have a fever, but the cause is not certain. A fever is a natural reaction of the body to an illness such as infections due to a virus or bacteria. In most cases, the temperature itself is not harmful. It actually helps the body fight infections. A fever does not need to be treated unless you feel very uncomfortable. Sometimes a fever can be an early sign of a more serious infection. Therefore, you should watch for the signs listed below. Home Care: If signs and symptoms are severe, rest at home for the first 2-3 days. When you resume activity, don't let yourself get too tired. Stay away from cigarette smoke (yours and other peoples). You may use acetaminophen (Tylenol) or ibuprofen (Motrin, Advil) to control fever or pain, unless another medicine was prescribed. NOTE: If you have chronic liver or kidney disease or ever had a stomach ulcer or GI bleeding, talk with your doctor before using these medicines. (Aspirin should never be used in anyone under 18 years of age who is ill with a fever. It may cause severe liver damage.) Your appetite may be poor, so a light diet is fine. Avoid dehydration by drinking 6-8 glasses of fluid per day (water, sport drinks such as Gatorade, sodas without caffeine, juices, tea, soup). Extra fluid will help loosen secretions in the nose and lungs. [id number] products will not shorten the duration of the illness but may be helpful for the following symptoms: cough (Robitussin DM); sore throat (Chloraseptic lozenges or spray); nasal and sinus congestion (Actifed or Sudafed). NOTE: Do not use decongestants if you have high blood pressure. Follow Up with your doctor or as advised if you do not start to improve over the next week. Get Prompt Medical Attention if any of the following occur: Cough with lots of colored sputum (mucus) or blood in your sputum Chest pain, shortness of breath, wheezing or difficulty breathing Severe headache, face, neck, throat or ear pain Feeling drowsy or confused Abdominal pain, repeated vomiting or diarrhea Joint pain or a new rash Burning when urinating Fever of 100.4F (38C) oral or higher, not better with fever medication Feeling weak or dizzy Convulsion Taking Your Child's Temperature If your child feels hot, then check the temperature. Under 3 months : Start with a AXILLARY temperature. If it is above 99.0 F (37.2 C), take a RECTAL temperature. 3 months to 4 years : Measure a RECTAL temperature, or an EAR temperature. Over 4 years : Measure an ORAL temperature. Rectal Temperature is the most accurate. Ear temperature is not as accurate as a rectal or oral temperature, but is more convenient and can be used in the 3 month to 4 year old. Other methods such as plastic strips , forehead devices , and pacifier thermometers are even less accurate and they are not recommended. If you do not know how to use a thermometer, ask your nurse or pharmacist. Oral Method: Normal: 98.6 F (37.0 C). Range of normal: Up to 99.0 F (37.2 C). Recommended Age: Use this method for children older than 4 or 5 years of age, only if cooperative. 1) Wait at least 20 minutes after drinking or eating before taking an oral temperature. 2) Place the tip of a the thermometer under the child's tongue. 3) Have child close lips gently, without biting on the thermometer. 4) Keep under the tongue until the thermometer beeps. 5) Remove thermometer and read the temperature in the display. 6) Clean the thermometer with alcohol, or soap and water after each use. Axillary Method (UNDER THE ARM): Normal: 97.6 F (36.6 C) Range of Normal: Up to 98.6 F (37.0 C) Recommended Age: Use this method for children under 4 years of age or any uncooperative child. 1) Make sure armpit is dry and the child does not have clothing between arm and chest. 2) Place the tip of the thermometer high up in the armpit. 4) Hold the child's arm snug against their body with the thermometer in place until it beeps. 5) Remove thermometer and read the temperature in the display. 6) Clean the thermometer with alcohol, or soap and water after each use. Rectal Method: Normal: 99.6 F (37.6 C). Range of Normal: Up to 100.4 F (38.0 C). Recommended age: Use this method for children under 4 years of age or any uncooperative child. 1) Lubricate the tip of a rectal thermometer with a lubricant such as Vaseline jelly or K-Y jelly. 2) Lay your child face down across your lap, or on his/her side with knees bent toward the chest. Spread buttocks so that the anus can be easily seen. 3) Hold the thermometer between your thumb and index finger with the edge of your hand resting on the buttocks. Slowly and gently insert thermometer into the anus about one inch. The tip should slide in easily. Do not force it since they may cause injury. 4) Do not let go of the thermometer! Hold it carefully in place until it beeps. 5) Remove thermometer and read the temperature in the display. 6) Clean the thermometer with alcohol, or soap and water after each use. When To Seek Help Call your doctor or return here if you have an infant younger than 3 months with a temperature of 100.4 F (38.0 C) or an older child with a fever higher than 104.0 F (40.0 C). Ondansetron Oral disintegrating tablet What is this medicine? ONDANSETRON (on GOYO se letty) is used to treat nausea and vomiting caused by chemotherapy. It is also used to prevent or treat nausea and vomiting after surgery. How should I use this medicine? These tablets are made to dissolve in the mouth. Do not try to push the tablet through the foil backing. With dry hands, peel away the foil backing and gently remove the tablet. Place the tablet in the mouth and allow it to dissolve, then swallow. While you may take these tablets with water, it is not necessary to do so. Talk to your filling winder regarding the use of this medicine in children. Special care may be needed. What side effects may I notice from receiving this medicine? Side effects that you should report to your doctor or health residential caregiver as soon as possible: allergic reactions like skin rash, itching or hives, swelling of the face, lips, or tongue breathing problems dizziness fast or irregular heartbeat feeling faint or lightheaded, falls fever and chills swelling of the hands and feet tightness in the chest Side effects that usually do not require medical attention (report to your doctor or health residential caregiver if they continue or are bothersome): constipation or diarrhea headache What may interact with this medicine? Do not take this medicine with any of the following medications: -apomorphine -cisapride -dofetilide -dronedarone -pimozide -thioridazine -ziprasidone This medicine may also interact with the following medications: -carbamazepine -phenytoin -rifampicin -tramadol -other medicines that prolong the QT interval (cause an abnormal heart rhythm) What if I miss a dose? If you miss a dose, take it as soon as you can. If it is almost time for your next dose, take only that dose. Do not take double or extra doses. Where should I keep my medicine? Keep out of the reach of children. Store between 2 and 30 degrees C (36 and 86 degrees F). Throw away any unused medicine after the expiration date. What should I tell my health care provider before I take this medicine? They need to know if you have any of these conditions: heart disease history of irregular heartbeat liver disease low levels of magnesium or potassium in the blood an unusual or allergic reaction to ondansetron, granisetron, other medicines, foods, dyes, or preservatives or trying to get breast-feeding What should I watch for while using this medicine? Check with your doctor or health residential caregiver as soon as you can if you have any sign of an allergic reaction. Promethazine Hydrochloride Rectal suppository What is this medicine? PROMETHAZINE (proe METH a zeen) is an antihistamine. It is used to treat allergic reactions and to treat or prevent nausea and vomiting from illness or motion sickness. It is also used to make you sleep before surgery, and to help treat pain or nausea after surgery. How should I use this medicine? This medicine is for rectal use only. Do not take by mouth. Wash your hands before and after use. Take off the foil wrapping. Wet the tip of the suppository with cold tap water to make it easier to use. Lie on your side with your lower leg straightened out and your upper leg bent forward toward your stomach. Lift upper buttock to expose the rectal area. Apply gentle pressure to insert the suppository completely into the rectum, pointed end first. Hold buttocks together for a few seconds. Remain lying down for about 15 minutes to avoid having the suppository come out. Do not use more often than directed. Talk to your filling winder regarding the use of this medicine in children. Special care may be needed. This medicine should not be given to infants and children younger than 2 years old. What side effects may I notice from receiving this medicine? Side effects that you should report to your doctor or health residential caregiver as soon as possible: blurred vision irregular heartbeat, palpitations or chest pain muscle or facial twitches pain or difficulty passing urine seizures skin rash slowed or shallow breathing unusual bleeding or bruising yellowing of the eyes or skin Side effects that usually do not require medical attention (report to your doctor or health residential caregiver if they continue or are bothersome): headache nightmares, agitation, nervousness, excitability, not able to sleep (these are more likely in children) stuffy nose What may interact with this medicine? Do not take this medicine with any of the following medications: medicines called MAO Inhibitors like Nardil, Parnate, Marplan, Eldepryl other phenothiazines like trimethobenzamide This medicine may also interact with the following medications: barbiturates such as phenobarbital bromocriptine certain antidepressants certain antihistamines used in allergy or cold medicines epinephrine levodopa medicines for sleep medicines for mental problems and psychotic disturbances medicines for movement abnormalities as in Parkinson's disease, or for gastrointestinal problems muscle relaxants prescription pain medicines What if I miss a dose? If you miss a dose, use it as soon as you can. If it is almost time for your next dose, use only that dose. Do not use double doses. Where should I keep my medicine? Keep out of the reach of children. Store in a refrigerator between 2 and 8 degrees C (36 and 46 degrees F). Throw away any unused medicine after the expiration date. What should I tell my health care provider before I take this medicine? They need to know if you have any of these conditions: glaucoma high blood pressure or heart disease kidney disease liver disease lung or breathing disease, like asthma prostate trouble pain or difficulty passing urine seizures an unusual or allergic reaction to promethazine or phenothiazines, other medicines, foods, dyes, or preservatives or trying to get breast-feeding What should I watch for while using this medicine? Tell your doctor or health residential caregiver if your symptoms do not start to get better in 1 to 2 days. You may get drowsy or dizzy. Do not drive, use machinery, or do anything that needs mental alertness until you know how this medicine affects you. To reduce the risk of dizzy or fainting spells, do not stand or sit up quickly, especially if you are an older patient. Alcohol may increase dizziness and drowsiness. Avoid alcoholic drinks. Your mouth may get dry. Chewing sugarless gum or sucking hard candy, and drinking plenty of water may help. Contact your doctor if the problem does not go away or is severe. This medicine may cause dry eyes and blurred vision. If you wear contact lenses you may feel some discomfort. Lubricating drops may help. See your eye doctor if the problem does not go away or is severe. This medicine can make you more sensitive to the sun. Keep out of the sun. If you cannot avoid being in the sun, wear protective clothing and use sunscreen. Do not use sun lamps or tanning beds/booths. If you are diabetic, check your blood-sugar levels regularly. Clonidine Hydrochloride Oral tablet What is this medicine? CLONIDINE (KLOE ni enoc) is used to treat high blood pressure. How should I use this medicine? Take this medicine by mouth with a glass of water. Follow the directions on the prescription label. Take your doses at regular intervals. Do not take your medicine more often than directed. Do not suddenly stop taking this medicine. You must gradually reduce the dose or you may get a dangerous increase in blood pressure. Ask your doctor or health residential caregiver for advice. Talk to your filling winder regarding the use of this medicine in children. Special care may be needed. What side effects may I notice from receiving this medicine? Side effects that you should report to your doctor or health residential caregiver as soon as possible: allergic reactions like skin rash, itching or hives, swelling of the face, lips, or tongue anxiety, nervousness chest pain depression fast, irregular heartbeat swelling of feet or legs unusually weak or tired Side effects that usually do not require medical attention (report to your doctor or health residential caregiver if they continue or are bothersome): change in sex drive or performance constipation headache What may interact with this medicine? Do not take this medicine with any of the following medications: MAOIs like Carbex, Eldepryl, Marplan, Nardil, and Parnate This medicine may also interact with the following medications: barbiturate medicines for inducing sleep or treating seizures like phenobarbital certain medicines for blood pressure, heart disease, irregular heart beat certain medicines for depression, anxiety, or psychotic disturbances prescription pain medicines What if I miss a dose? If you miss a dose, take it as soon as you can. If it is almost time for your next dose, take only that dose. Do not take double or extra doses. Where should I keep my medicine? Keep out of the reach of children. Store at room temperature between 15 and 30 degrees C (59 and 86 degrees F). Protect from light. Keep container tightly closed. Throw away any unused medicine after the expiration date. What should I tell my health care provider before I take this medicine? They need to know if you have any of these conditions: kidney disease an unusual or allergic reaction to clonidine, other medicines, foods, dyes, or preservatives or trying to get breast-feeding What should I watch for while using this medicine? Visit your doctor or health residential caregiver for regular checks on your progress. Check your heart rate and blood pressure regularly while you are taking this medicine. Ask your doctor or health residential caregiver what your heart rate should be and when you should contact him or her. You may get drowsy or dizzy. Do not drive, use machinery, or do anything that needs mental alertness until you know how this medicine affects you. To avoid dizzy or fainting spells, do not stand or sit up quickly, especially if you are an older person. Alcohol can make you more drowsy and dizzy. Avoid alcoholic drinks. Your mouth may get dry. Chewing sugarless gum or sucking hard candy, and drinking plenty of water will help. Do not treat yourself for coughs, colds, or pain while you are taking this medicine without asking your doctor or health residential caregiver for advice. Some ingredients may increase your blood pressure. If you are going to have surgery tell your doctor or health residential caregiver that you are taking this medicine. You have been given the following additional information: Febrile Illness, Uncertain Cause (Adult) Thermometer Use Ondansetron Oral disintegrating tablet Promethazine Hydrochloride Rectal suppository Clonidine Hydrochloride Oral tablet No driving or operating machinery. (Electronically signed by Madhu Marrero MD 04/26/2017 21:26)
--- NOTE | 2017-04-26 21:27 | ED MED RECONCILIATION SUMMARY ---
Patient: CAMILLE OSHEA Medication Reconciliation Report [facility] VisitID: [id number] [place] [address] 36y, F Registration Date/Time: 04/25/2017 Weight: 72.5 kg Height/Length: 64 in. BMI: 27.5 ALLERGIES: Compazine, Sulfa Antibiotics The patient's Home Medications are listed below: THE FOLLOWING MEDICATIONS NEED TO BE RECONCILED: Albuterol Sulfate Inhalation Potassium Chloride Oral (20 meq) 1 packet, daily The source(s) of the original Home Medication information: Not obtained. The following Medications were given to the patient in the Emergency Department: IV NS IV Fluids bolus 0, then 999 mL/hr, administered: 04/25/2017 8:29:00 PM The following Medications were prescribed to the patient: Zofran 4 mg: Take 1 orally every six hours as needed for nausea/vomiting. Dispense ten (10). No refills. Substitution is permissible. -- Madhu Marrero MD Phenergan suppositories 25 mg: Insert 1 rectally every 4 to 6 hours as needed for nausea or vomiting. Dispense ten (10). No refills. Substitution is permissible. -- Madhu Marrero MD Clonidine 0.1 mg: take 1 orally every 8 hours. Dispense fifteen (15). No refills. -- Madhu Marrero MD
== END 2017-04-25 21:15 | disposition home or self-care (01) ==
LOC: ED SRH 18:56
DX: R50.9 Fever, unspecified (principal); R11.0 Nausea; F17.210 Nicotine dependence, cigarettes, uncomplicated; F15.10 Other stimulant abuse, uncomplicated; F11.10 Opioid abuse, uncomplicated; Z88.2 Allergy status to sulfonamides; Z88.8 Allergy status to other drugs, medicaments and biological substances
CPT/HCPCS: 90004; 90074; 90100; 90469; 92235; 92530; 92760; 92761; 92762; 92763; 92764; 92765; 92766; 92767; 93070; 95059